=== PATIENT | female | born 1990 | race Caucasian/White ===

== ENCOUNTER → 2017-06-19 | Outpatient (CLI) | payer OTHER ==
[~2017-06-19] MED LIST: ACHD5005 PO; CALC500T55 PO; FAMO20TA25 PO; FERR-57 PO; FRS325T PO; IBP600T1 PO; LORA10CA PO; PREN1TAB71 PO
== END ==
LOC: RAD 10:49
PROVIDERS: ATTEND Family Medicine
DX: Z34.80 Encounter for supervision of other normal pregnancy, unspecified trimester (principal)

== ENCOUNTER → 2017-09-06 | Outpatient (CLI) | payer OTHER ==
--- NOTE | 2017-09-06 14:55 | Diagnostic Imaging Report ---
INDICATION: survey. TECHNIQUE: Multiple real-time grayscale images were obtained over the gravid uterus. COMPARISON: 06/26/2017. FINDINGS: There is a single live fetus in a transverse presentation with head to the maternal left. The placenta is anterior. The amniotic fluid volume is normal. heart rate was recorded at 163 beats per minute. survey demonstrates kidneys, bladder, and stomach to be unremarkable. Intracranial structures are unremarkable. There is a four-chamber heart view. There is a three-vessel cord with normal cord insertion. spine, particularly the lumbar spine, is somewhat limited and not well seen. Biometrical measurements are as follows: Biparietal 5.3 cm, age 22 weeks 2 days. Head circumference 20.0 cm, age 22 weeks 2 days. Abdominal circumference 17.5 cm, age 22 weeks 3 days. Femur length 3.9 cm, age 22 weeks 3 days. Sonographic estimate age: 22 weeks 3 days. Sonographic estimated date of delivery: 01/07/18. Estimated Weight: 496 gm (+/- 72 gm). LMP percentile: 69%. heart rate: 163 beats per minute. number: 1 of 1. IMPRESSION: Single live IUP of approximately 22 weeks 3 days gestational age. The estimated date of confinement sonographically is 01/07/2018. The survey is unremarkable, although the lumbar spine was not well seen on today's study. Dictated by: Dictated on workstation # [id number]
== END ==
LOC: RAD 14:03
PROVIDERS: ATTEND Family Medicine
DX: Z36.89 Encounter for other specified antenatal screening (principal); Z3A.22 22 weeks gestation of pregnancy
CPT/HCPCS: 76805

== ENCOUNTER → 2017-10-18 | Outpatient (CLI) | payer OTHER ==
--- NOTE | 2017-10-18 15:55 | Diagnostic Imaging Report ---
INDICATION: Follow-up spine. TECHNIQUE: Multiple real-time grayscale images were obtained over the gravid uterus. COMPARISON: 09/06/2017. FINDINGS: There is a single live fetus in a cephalic presentation. The placenta is anterior. The amniotic fluid volume is normal. heart rate is recorded at 152 beats per minute. spine is visualized and unremarkable on today's exam. IMPRESSION: Follow-up OB ultrasound demonstrating the spine to be unremarkable. No complicating features are detected. Dictated on workstation # [id number]
== END ==
LOC: RAD 13:59
PROVIDERS: ATTEND Family Medicine
DX: Z04.8 Encounter for examination and observation for other specified reasons (principal); Z3A.27 27 weeks gestation of pregnancy
CPT/HCPCS: 76816

== ENCOUNTER → 2017-12-27 | Outpatient (CLI) | payer OTHER ==
--- NOTE | 2017-12-27 16:10 | Diagnostic Imaging Report ---
INDICATION: Malpresentation. TECHNIQUE: Multiple real-time grayscale images were obtained over the gravid uterus. COMPARISON: None. FINDINGS: Al gestation is now in cephalic position. The placenta is anterior with no abruption or previa. Biometrical measurements are congruent and correlate with an age 37 weeks 6 days, reflective of normal growth from prior. Sonographic date of confinement is 01/11/2018. No abnormality at the anatomical survey. Amniotic fluid volume is within normal limits. Largest vertical pocket of 4.2 cm. IMPRESSION: Cephalic-positioning al viable IUP with no pathological finding, showing normal growth from prior. Biometrical measurements are as follows: Biparietal 9.5 cm, age 39 weeks 0 days. Head circumference 33.3 cm, age 38 weeks 1 days. Abdominal circumference 33.0 cm, age 37 weeks 0 days. Femur length 7.2 cm, age 37 weeks 0 days. Sonographic estimate age: 37 weeks 6 days. Sonographic estimated date of delivery: 01/11/18. Estimated Weight: 3165 gm (+/- 462 gm). LMP percentile: 46%. heart rate: 140 beats per minute. number: 1 of 1. Dictated by: Dictated on workstation # [id number]
== END ==
LOC: RAD 13:54
PROVIDERS: ATTEND Family Medicine
DX: O32.9XX0 Maternal care for malpresentation of fetus, unspecified, not applicable or unspecified (principal); Z3A.37 37 weeks gestation of pregnancy
CPT/HCPCS: 76816

== ENCOUNTER 2017-12-29 17:48 | Inpatient (IN) | payer OTHER ==
[2017-12-29] VITALS (11 sets, daily range): BP systolic 99–148; BP diastolic 52–115
[~2017-12-29] VITALS: Ht 152.4 cm; Wt 119.7 kg
[2017-12-29] MEDS ORDERED: OXYTOCIN/NORMAL SALINE 500 ML IV ONE (17:57)
[2017-12-29] MEDS ORDERED: LIDOCAINE/EPI 2% 1:200,00 (XYLOCAINE) 10 ML VIAL ONE (18:11)
[2017-12-29] MEDS ORDERED: D5 LR IV SOLUTION 1,000 ML IV SCH (18:21)
[2017-12-29] MEDS ORDERED: LIDOCAINE/EPI 1%-1:100,000 (XYLOCAINE) 20ML INJ ONE (18:30)
--- NOTE | 2017-12-29 18:37 | History & Physical-OB ---
OB - Chief Complaint & HPI Date/Time Date of Admission: Date of Admission: Dec 29, 2017 at 18:21 Time Seen by Provider: 17:00 Chief Complaint/History OB-Reason for Admission/Chief: Onset of Labor Hx : 2 Hx Para: 1 Expected Date of Delivery: Jan 17, 2018 Gestational Age in Weeks: 37 Gestational Age in Days: 2 Admission Nurse Assessment Rev: Yes Allergies and Home Medications Allergies Coded Allergies: No Known Drug Allergies (Unverified , 02/10/12) Home Medications Famotidine 20 Mg Tablet, 20 MG PO DAILY, (Reported) Ferrous Sulfate 325 Mg Tab, 325 MG PO TIDWM Prescribed by: LAXMI LOZANO on 02/06/15 1040 Hydrocodone Bit/Acetaminophen 1 Tab Tab, 1 TAB PO Q4H PRN for PAIN Prescribed by: LAXMI LOZANO on 02/06/15 1040 Ibuprofen 600 Mg Tab, 600 MG PO Q6H PRN for PAIN Prescribed by: LAXMI LOZANO on 02/06/15 1040 Loratadine 10 Mg Capsule, 10 MG PO DAILY, (Reported) Vit/Fe Fumarate/Fa 1 Each Tablet, 1 EACH PO DAILY, (Reported) Patient Home Medication List Home Medication List Reviewed: Yes OB - History Hx of Present Care: Yes Ultrasounds: Normal mid trimester US Obstetrical Complications: None Medical Complications: None Delivery History Hx Blood Disorders: No Adverse Rxn to Tranfusion: No Patient Past Medical History Seasonal allergies Immunizations Tetanus Booster (TDap): Less than 5yrs OB - Admission Exam Physical Exam HEENT: Moist Membranes Lungs: Clear Abdomen: Gravid Cervical Dilatation: 10cm (on admission) Membranes: Intact Amniotic Fluid: Clear (after rupture) Accelerations: Accelerations Present Short Term Variability: Present Contractions on Admission: < 5 Minutes Apart Intensity: Moderate OB - Assessment/Plan/Diagnosis Assessment Assessment: active labor Admission Dx 1. Intrauterine at term 37 weeks 2 days in labor Admission Status: Inpatient Order (span 2 midnights) Reason for Inpatient Admission: Labor management Plan Plan: Other (Eminent delivery) TIMOTHY MENDOZA MD Dec 29, 2017 18:37
[2017-12-29] MEDS ORDERED: OXYTOCIN/NORMAL SALINE 500 ML IV SCH (18:39)
--- NOTE | 2017-12-29 18:39 | OB Labor & Delivery Record ---
L&D History Date of Service Date of Service: Dec 29, 2017 History Expected Date of Delivery: Jan 17, 2018 Gestational Age in Weeks: 37 Hx : 2 Hx Para: 1 Complications Events: Routine care Operative Indications (Cesarea: N/A-Vaginal Delivery Intrapartal Events: None L&D Stage1 Stage One Onset of Labor - Date: Dec 29, 2017 Onset of Labor - Time: 02:00 Monitors and Tracing Monitor Mode: External Monitor Accelerations: Uniform Monitor Decelerations: Variable Station: -2 Detention Variability: Average (6-10) Short Term Variability: Present Presentation: Vertex Signs of Distress by FHT Signs of Distress no Rupture of Membranes Spontaneous Ruture of Membrane: No Amniotic Membrane Rupture Time: 17:00 Amniotic Membrane Fluid Desc.: Clear Induction/Anesthesia Medications None L&D Stage2 Stage Two Stage II Date: Dec 29, 2017 Stage II Time: 17:05 Monitors and Tracing Monitor Mode: External Monitor Accelerations: Uniform Monitor Decelerations: Variable Central Supply Technician Variability: Average (6-10) Short Term Variability: Present Position: Left Occiput Anterior Presentation: Vertex Signs of Distress by FHT Signs of Distress No Cord Descript/Complications Cord Vessel Description: 3 Vessels Delivery Type Infant Delivery Method: Spontaneous Vaginal Anterior Shoulder: Left Episiotomy/Perineal Laceration Laceraction(s)/Extensions: Yes Episiotomy Description: Perineal Extension/lac, 1st degree Sutures Used: Vicryl Condition of Infant Delivery 1 minute Comment: 8 5 minute Comment: 8 Condition of Infant Condition of Infant: Living Exam: No Observed Abnormalities Resuscitation Resuscitation: N/A - Spontaneous Resp L&D Stage3 Stage Three Stage III Date: Dec 29, 2017 Stage III Time: 17:09 Pictocin Pitocin ml/hr: 125 Placenta Delivery Placenta Delivery: Spontaneous Delivery Summary Summary Estimated blood loss (mL): 250 Condition of Delivery Examined: Cervix Examined Post Hemorrhage: No Intervention Required None TIMOTHY MENDOZA MD Dec 29, 2017 18:39
[2017-12-29] MEDS ORDERED: TETANUS,DIPTH,PERTUSS P/F (BOOSTRIX) 0.5 ML VIAL IM ONE (18:45)
[2017-12-29] MEDS ORDERED: MEASLES,MUMPS,RUBELLA 1 EA INJ SQ ONE (18:45)
[2017-12-29] MEDS ORDERED: HYDROcodone/APAP 5 MG/325 MG (LORTAB) TAB PO PRN (18:45)
[2017-12-29 18:54] LABS: BASOPHILS % (AUTO) 0 % (0-10); EOSINOPHILS % (AUTO) 0 % (0-10); HEMATOCRIT 33 % (35-52); HEMOGLOBIN 10.9 G/DL (11.5-16.0); LYMPHOCYTES # (AUTO) 0.5 X 10^3 (1.0-4.0); LYMPHOCYTES % (AUTO) 3 % (12-44); MEAN CORPUSCULAR HEMOGLOBIN 31 PG (25-34); MEAN CORPUSCULAR HGB CONC 34 G/DL (32-36); MEAN CORPUSCULAR VOLUME 91 FL (80-99); MONOCYTES # (AUTO) 0.3 X 10^3 (0.0-1.0); MONOCYTES % (AUTO) 3 % (0-12); NEUTROPHILS # (AUTO) 12.9 X 10^3 (1.8-7.8); NEUTROPHILS % (AUTO) 94 % (42-75); PLATELET COUNT 191 10^3/uL (130-400); RED BLOOD COUNT 3.57 10^6/uL (4.35-5.85); WHITE BLOOD COUNT 13.7 10^3/uL (4.3-11.0)
[2017-12-29 19:13] LABS: BAND NEUTROPHILS 12 %; LYMPHOCYTES % (MANUAL) 4 %; MONOCYTES % (MANUAL) 2 %; NEUTROPHILS % (MANUAL) 82 %; RBC MORPH NORMAL
[2017-12-29] MEDS ORDERED: WITCH HAZEL(TUCKS) 40 EA JAR ONE (19:23)
[2017-12-29] MEDS ORDERED: IBUPROFEN 600 MG (MOTRIN) TAB PO ONE (19:23)
[2017-12-29] MEDS ORDERED: BENZOCAINE/MENTHOL (DERMOPLAST) 56 ML CAN TP ONE (19:23)
[2017-12-29] MEDS ORDERED: DOCUSATE SODIUM 100 MG (COLACE) CAP PO ONE (19:23)
[2017-12-29] MEDS: WITCH HAZEL(TUCKS) 40 EA JAR TOP PRN (20:35)
[2017-12-29] MEDS: IBUPROFEN 600 MG (MOTRIN) TAB PO SCH (20:35)
[2017-12-29] MEDS: BENZOCAINE/MENTHOL (DERMOPLAST) 56 ML CAN TP PRN (20:35)
[2017-12-29] MEDS ORDERED: CATHETER FLUSH 10 ML SYR IV SCH ×2 (22:00)
[2017-12-29] MEDS ORDERED: ACETAMINOPHEN 325 MG TABLET/CAPLET (TYLENOL) ONE (23:31)
[2017-12-30] VITALS: BP 107/67
[2017-12-30] MEDS ORDERED: ACETAMINOPHEN 325 MG TABLET/CAPLET (TYLENOL) PO PRN (00:30)
[2017-12-30 03:20] VITALS: BP 99/62
[2017-12-30] MEDS: IBUPROFEN 600 MG (MOTRIN) TAB PO SCH ×4 (03:20→21:09)
[2017-12-30 05:40] LABS: BASOPHILS % (AUTO) 0 % (0-10); EOSINOPHILS # (AUTO) 0.1 10^3/uL (0.0-0.3); EOSINOPHILS % (AUTO) 0 % (0-10); HEMATOCRIT 31 % (35-52); HEMOGLOBIN 10.2 G/DL (11.5-16.0); LYMPHOCYTES # (AUTO) 2.3 X 10^3 (1.0-4.0); LYMPHOCYTES % (AUTO) 18 % (12-44); MEAN CORPUSCULAR HEMOGLOBIN 30 PG (25-34); MEAN CORPUSCULAR HGB CONC 33 G/DL (32-36); MEAN CORPUSCULAR VOLUME 91 FL (80-99); MEAN PLATELET VOLUME 8.8 FL (7.4-10.4); MONOCYTES # (AUTO) 1.2 X 10^3 (0.0-1.0); MONOCYTES % (AUTO) 10 % (0-12); NEUTROPHILS # (AUTO) 9.1 X 10^3 (1.8-7.8); NEUTROPHILS % (AUTO) 72 % (42-75); PLATELET COUNT 198 10^3/uL (130-400); RED BLOOD COUNT 3.38 10^6/uL (4.35-5.85); RED CELL DISTRIBUTION WIDTH 15.3 % (10.0-14.5); WHITE BLOOD COUNT 12.6 10^3/uL (4.3-11.0)
--- NOTE | 2017-12-30 07:54 | Progress Note (SOAP) ---
Subjective Subjective/Events-last exam No complaints. Ambulating. No leg pains. No SOB. Review of Systems Date Seen by Provider: Dec 30, 2017 Time Seen by Provider: 07:40 Objective Exam Last Set of Vital Signs Vital Signs Date Time Temp Pulse Resp B/P (MAP) Pulse Ox O2 Delivery O2 Flow Rate FiO2 12/30/17 03:20 98.8 94 18 99/62 (74) 98 Room Air Capillary Refill : I&O Intake and Output 12/30/17 00:00 Daily Weight Change No General: No Acute Distress Abdomen: Soft (with uterus firm) Results/Procedures Lab Laboratory Tests 12/29/17 18:43: White Blood Count 13.7H, Red Blood Count 3.57L, Hemoglobin 10.9L, Hematocrit 33L , Mean Corpuscular Volume 91, Mean Corpuscular Hemoglobin 31, Mean Corpuscular Hemoglobin Concent 34, Red Cell Distribution Width 15.0H, Platelet Count 191, Mean Platelet Volume 9.0, Neutrophils (%) (Auto) 94H, Lymphocytes (%) (Auto) 3L , Monocytes (%) (Auto) 3, Eosinophils (%) (Auto) 0, Basophils (%) (Auto) 0, Neutrophils # (Auto) 12.9H, Lymphocytes # (Auto) 0.5L, Monocytes # (Auto) 0.3, Eosinophils # (Auto) 0.0, Basophils # (Auto) 0.0, Neutrophils % (Manual) 82, Lymphocytes % (Manual) 4, Monocytes % (Manual) 2, Band Neutrophils 12, Blood Morphology Comment NORMAL 12/30/17 05:25: White Blood Count 12.6H, Red Blood Count 3.38L, Hemoglobin 10.2L, Hematocrit 31L , Mean Corpuscular Volume 91, Mean Corpuscular Hemoglobin 30, Mean Corpuscular Hemoglobin Concent 33, Red Cell Distribution Width 15.3H, Platelet Count 198, Mean Platelet Volume 8.8, Neutrophils (%) (Auto) 72, Lymphocytes (%) (Auto) 18, Monocytes (%) (Auto) 10, Eosinophils (%) (Auto) 0, Basophils (%) (Auto) 0, Neutrophils # (Auto) 9.1H, Lymphocytes # (Auto) 2.3, Monocytes # (Auto) 1.2H, Eosinophils # (Auto) 0.1, Basophils # (Auto) 0.0 Assessment/Plan Assessment/Plan Assessment & Plan 1. IUP at term 37weeks. 2. S/P day 1 -home in the am of 12/31 Clinical Quality Measures DVT/VTE Risk/Contraindication: Risk Factor Score Per Nursin RFS Level Per Nursing on Admit: 2=Moderate TIMOTHY MENDOZA MD Dec 30, 2017 07:54
[2017-12-30 08:15] VITALS: BP 105/61
[2017-12-30] MEDS: PRENATAL VITAMIN 1 EA TAB PO SCH (08:31)
[2017-12-30] MEDS ORDERED: MEASLES,MUMPS,RUBELLA 1 EA INJ ONE (08:41)
[2017-12-30 12:00] VITALS: BP 104/73
[2017-12-30 16:30] VITALS: BP 109/65
[2017-12-30 21:05] VITALS: BP 100/64
[2017-12-30] MEDS ORDERED: DOCUSATE SODIUM 100 MG (COLACE) CAP PO ONE (21:52)
[2017-12-30] MEDS: DOCUSATE SODIUM 100 MG (COLACE) CAP PO SCH (22:42)
[2017-12-31 03:14] VITALS: BP 102/62
[2017-12-31] MEDS: IBUPROFEN 600 MG (MOTRIN) TAB PO SCH ×2 (03:14→08:30)
[2017-12-31] MEDS: WITCH HAZEL(TUCKS) 40 EA JAR TOP PRN ×2 (07:21→14:02)
--- NOTE | 2017-12-31 08:04 | Discharge Summary ---
Diagnosis/Chief Complaint Date of Admission Dec 29, 2017 at 18:21 Date of Discharge December 31, 2017 Admission Diagnosis Admission Diagnosis 1. IUP at 37 weeks Discharge Diagnosis 1. IUP at 37 weeks Chief Complaint/HPI Chief Complaint/HPI 27 yo G2 now T2 who initially presented to labor and delivery on December 29 having had uterine contractions much all day long. She does live in [place] and apparently after dominick mostly they decided to present to Hospital for evaluation. Upon arrival she was noted to be complete cervical dilation. Her due date is January 17, 2018. She does not admit to any ruptured membranes. Discharge Summary-OBS Procedures 1. 2. Repair of 1st degree perineal laceration Discharge Physical Examination Allergies: Coded Allergies: No Known Drug Allergies (Unverified , 02/10/12) Vitals & I&Os Vital Sign - Last 12Hours Date Time Temp Pulse Resp B/P (MAP) Pulse Ox O2 Delivery O2 Flow Rate FiO2 12/31/17 03:14 97.9 84 18 102/62 (75) 97 Room Air General Appearance: No Acute Distress Respiratory: Clear to Auscultation Cardiovascular: Regular Rate Abdominal: Soft (with uterus firm) Hospital Course Upon presentation December 29 she was noted to be complete. She was at 37 weeks 2 days gestation. Her GBS status was unknown to me at that time the patient was complete and head basically on the perineum. She underwent AROM with subsequent delivery vaginally. She did not have an episiotomy and a first- degree perineal laceration was noted. female received Apgars of 8 at 1 minute and 9 at 5 minutes. The perineal laceration was repaired without difficulty with 3-0 Vicryl. Estimated blood loss 200 mL. Following delivery patient underwent routine care orders. She was noted to have no complications during the remainder of her hospital stay. She was ambulatory and did not complain of any shortness of breath or leg pain. She tolerated regular diet. Her hemoglobin day after delivery was noted be 10.2. Her uterus was firm the day after delivery. All questions were answered and she was felt ready for dismissal Discharge Instructions to patient/family Please see electronic discharge instructions given to patient. Discharge Medications Reviewed and agree with Discharge Medication list on patient's Discharge Instruction sheet Clinical Quality Measures DVT/VTE Risk/Contraindication: Risk Factor Score Per Nursin RFS Level Per Nursing on Admit: 2=Moderate TIMOTHY MENDOZA MD Dec 31, 2017 08:04
--- NOTE | 2017-12-31 08:06 | Discharge Inst-Women's Service ---
Discharge Inst-Women's Serv Depart Medication/Instructions New, Converted or Re-Newed RX: Other Consults/Follow Up Additional Follow Up: Yes (with Dr Caballero in 6 weeks) Activity Activity: Activity as Tolerated Driving Instructions: No Driving for 1 Week Nothing Inside Vagina: No [place] (for 6 weeks.) Diet Discharge Diet: Regular Diet Return to The Hospital For: as below Symptoms to Report to : Swelling Increased, Bleeding Excessive, Fever Over 101 Degrees F, Vaginal Bleeding Increase, Vaginal Discharge Foul For Any Problems or Questions: Contact Your Physician TIMOTHY MENDOZA MD Dec 31, 2017 08:06
[2017-12-31 08:30] VITALS: BP 93/61
[2017-12-31] MEDS: DOCUSATE SODIUM 100 MG (COLACE) CAP PO SCH (08:30)
[2017-12-31] MEDS: PRENATAL VITAMIN 1 EA TAB PO SCH (08:30)
[2017-12-31] MEDS: BENZOCAINE/MENTHOL (DERMOPLAST) 56 ML CAN TP PRN (14:02)
== END 2017-12-31 14:25 | disposition home or self-care (01) | DRG 775 ==
LOC: WSo 17:48 → LDRP 18:21 → 3RD 12-30 10:18 → LDRP 12-30 10:18
PROVIDERS: ADMIT Family Medicine; ATTEND Family Medicine
PROC: 10E0XZZ Delivery of Products of Conception, External Approach (ICD-10-PCS; principal; 2017-12-29)
PROC: 0HQ9XZZ Repair Perineum Skin, External Approach (ICD-10-PCS; 2017-12-29)
DX: O70.0 First degree perineal laceration during delivery (principal); Z37.0 Single live birth; Z3A.37 37 weeks gestation of pregnancy; Z23 Encounter for immunization
CPT/HCPCS: 36415; 85007; 85025; 85027; 86850; 86900; 86901; 90707; 99212

== ENCOUNTER 2019-11-03 04:34 | Inpatient (IN) | payer OTHER ==
[2019-11-03] VITALS (32 sets, daily range): BP systolic 92–127; BP diastolic 49–79
[~2019-11-03] VITALS: Ht 160 cm; Wt 95.8 kg
--- OUTSIDE RECORDS SUMMARY | 2019-11-03 06:01 | XMS REPORT ---
Author Author Ciara Posey Organization [facility] Address [address] [place] [address] Care Team Providers Care Adult And Pediatric Neurologist Name Role Phone PATRICIA Posey Unavailable PROBLEMS Type Condition ICD9-CM Code RHB94-UN Code Onset Dates Condition S tatus SNOMED Code Problem Migraine with aura and without status migrainosu s, not intractable G43.109 Active 6003702 Problem Encounter for genetic screening for Down Syndrome Z13.79 Active [id number] ALLERGIES No Information ENCOUNTERS Encounter Location Date Diagnosis [place] [address] [place] [address] Apr, [place] [address] [place] [address] 17 Mar, [address] [address] Mar, care, subsequent in f irst trimester Z34.81 [place] [address] [address] [place] [id number] [address] [place] [address] 09 Mar, 2019 care, subsequent pr egnancy in first trimester Z34.81 and 9 weeks gestation of Z3A.09 [place] [address] [address] [place] [id number] [address] [place] [address] Feb, [place] [address] [address] [place] [id number] [address] [place] [address] Feb, [place] [address] [place] [address] Feb, [place] [address] [address] [place] [id number] [address] [place] [address] Jan, Encounter for vis it Z39.2 and control counseling Z30.09 [place] [address] [address] [facility] [place] [id number] [address] [place] [address] 08 Dec, 2017 care, subsequent pr egnancy in third trimester Z34.83 and 37 weeks gestation of Z3A.37 [place] [address] [address] [facility] [place] [id number] [address] [place] [address] Dec, care, subsequent pr egnancy in third trimester Z34.83 ; 36 weeks gestation of Z3A.36 and Antepartum malpresentation of fetus P01.7 [place] [address] [address] [place] [id number] [address] [place] [address] November, care, subsequent pr egnancy in third trimester Z34.83 ; 33 weeks gestation of Z3A.33 and Decreased movements in third trimester, single or unspecified fetus O36.8130 [place] [address] [place] [id number] [place] [address] Oct, care, subsequent pr egnancy in third trimester Z34.83 ; Encounter for immunization Z23 and 31 weeks gestation of Z3A.31 [place] [address] [place] [id number] [place] [address] Oct, Third trimester Z3 4.93 and 28 weeks gestation of Z3A.28 [place] [address] [address] [place] [id number] [address] [place] [address] Sep, care, subsequent pr egnancy in second trimester Z34.82 ; Diabetes mellitus screening Z13.1 ; 25 weeks gestation of Z3A.25 and Evaluate anatomy not seen on prior sonogram Z04.8 [place] [address] [address] [place] [id number] [place] [address] 09 Aug, 2017 care, subsequent pr egnancy in second trimester Z34.82 ; Second trimester Z34.92 and 20 weeks gestation of Z3A.20 [place] [address] [address] [place] [id number] [address] [place] [address] Jul, [place] [address] [address] [place] [id number] [address] [place] [address] Jul, Normal in multigra michael Z34.80 ; care, subsequent in second trimester Z34.82 and 15 weeks gestation of Z3A.15 [place] [address] [address] [place] [id number] [address] [place] [address] May, Normal in multigra michael Z34.80 and 9 weeks gestation of Z3A.09 [place] [address] [address] Apr, [place] [address] [address] Apr, Encounter for test Z32.00 [place] [address] [address] Mar, Hirsutism L68.0 [place] [address] [address] Feb, Well woman exam (no gynecolo gical exam) Z00.00 ; control counseling Z30.9 ; Migraine with aura and without status migrainosus, not intractable G43.109 and Hirsutism L68.0 [place] [address] [place] [id number] [address] [place] [address] 02 Mar, 2015 Routine follow-up V24.2 ; anemia 648.24 and Contraception management V25.9 [place] [address] [place] [address] Jan, Supervision of normal first V22.0 [facility] [id number] [place] [id number] 10 Jan, 2015 Dental examination V72.2 [place] [address] [address] [place] [id number] [address] [place] [address] 08 Jan, 2015 Supervision of normal first V22.0 [place] [address] [place] [address] Jan, Supervision of normal first V22.0 [facility] [address] [facility] [place] [id number] [address] [place] [address] Dec, [facility] [address] [facility] [place] [id number] [address] [place] [address] Dec, Supervision of normal first V22.0 [facility] [address] [facility] [id number] [address] [place] [address] Dec, [facility] [address] [facility] [place] [id number] [address] [place] [address] Dec, Supervision of normal first V22.0 [facility] [address] [facility] [place] [id number] [address] [place] [address] Dec, Supervision of normal first V22.0 [facility] [address] [facility] [place] [id number] [address] [place] [address] Dec, [facility] [address] [facility] [place] [id number] [address] [place] [address] Dec, Supervision of normal first V22.0 [facility] [address] [id number] [address] [place] [id number] November, Dental examination V72.2 [facility] [address] [facility] [place] [id number] [address] [place] [address] November, Rubella non-immune status, a ntepartum 646.83 and Supervision of normal first V22.0 [facility] [address] [facility] [place] [id number] [address] [place] [address] November, [facility] [address] [facility] [place] [id number] [address] [place] [address] November, Supervision of normal first V22.0 ; Screening for diabetes mellitus V77.1 and Screening, iron deficiency anemia V78.0 [facility] [address] [facility] [place] [id number] [address] [place] [address] Oct, [facility] [address] [id number] [address] [place] [address], [place] [address] 13 Oct, 2014 [facility] [address] [id number] [address] [place] [address], [place] [address] 30 Sep, 2014 [facility] [address] [id number] [address] [place] [address], [place] [address] 13 Sep, 2014 [facility] [address] [id number] [address] [place] [address], [place] [address] 13 Sep, 2014 [facility] [address] [id number] [address] [place] [address], [place] [address] Sep, [facility] [address] [id number] [address] [place] [address], [place] [address] Sep, [facility] [address] [id number] [address] [place] [address], [place] [address] Sep, [facility] [address] [id number] [address] [place] [address], [place] [address] 04 Sep, 2014 [facility] [address] [id number] [address] [place] [address], [place] [address] Sep, [facility] [address] [id number] [address] [place] [address], [place] [address] Sep, [facility] [address] [id number] [address] [place] [address], [place] [address] Sep, [facility] [address] [id number] [address] [place] [address], [place] [address] Sep, [facility] [address] [id number] [address] [place] [address], [place] [address] Aug, [facility] [address] [id number] [address] [place] [address], [place] [address] 17 Aug, 2014 [facility] [address] [id number] [address] [place] [address], [place] [address] 15 Aug, 2014 [facility] [address] [id number] [address] [place] [address], [place] [address] 12 Aug, 2014 [facility] [address] [id number] [address] [place] [address], [place] [address] 11 Aug, 2014 [facility] [address] [id number] [address] [place] [address], [place] [address] 11 Aug, 2014 [facility] [address] [id number] [address] [place] [address], [place] [address] 16 Jul, 2014 [facility] [address] [id number] [address] [place] [address], [place] [address] 15 Jul, 2014 [facility] [address] [id number] [address] [place] [address], [place] [address] Jul, [facility] [address] [id number] [address] [place] [address], [place] [address] 12 Jul, 2014 [facility] [address] [id number] [address] [place] [address], [place] [address] 17 Jun, 2014 [facility] [address] [id number] [address] [place] [address], [place] [address] 16 Jun, 2014 [facility] [address] [id number] [address] [place] [address], [place] [address] 15 Jun, 2014 [facility] [address] [id number] [address] [place] [address], [place] [address] 15 Jun, 2014 [facility] [address] [id number] [address] [place] [address], [place] [address] 24 May, 2014 [facility] [address] [id number] [address] [place] [address], [place] [address] 24 May, 2014 [facility] [address] [id number] [address] [place] [address], [place] [address] 24 Dec, 2013 [facility] [address] [id number] [address] [place] [address], [place] [address] 24 Dec, 2013 [facility] [address] [id number] [address] [place] [address], [place] [address] Jun, [facility] [address] [facility] [place] [id number] [address] [place] [address] Jun, IMMUNIZATIONS No Known Immunizations SOCIAL HISTORY Never Assessed REASON FOR VISIT PLAN OF CARE VITAL SIGNS Height 63 in 2014-07-05 Weight 198.1 lbs 2014-07-05 Temperature 97.9 degrees Fahrenheit 2014-07-05 Heart Rate 82 bpm 2014-07-05 Respiratory Rate 18 2014-07-05 Blood pressure systolic 118 mmHg 2014-07-05 Blood pressure diastolic 72 mmHg 2014-07-05 MEDICATIONS Unknown Medications RESULTS No Results PROCEDURES Procedure Date Ordered Result Body Site HEPATITIS B SURFACE AG, EIA Jul 05, 2014 RUBELLA ANTIBODY Jul 05, 2014 URINE CULTURE/COLONY COUNT Jul 05, 2014 HIV-1/HIV-2, SINGLE ASSAY Jul 05, 2014 BLOOD SEROLOGY, QUALITATIVE Jul 05, 2014 ASSAY THYROID STIM HORMONE Jul 05, 2014 OB US < 14 WKS, SINGLE FETUS Jul 05, 2014 BLOOD TYPING, ABO Jul 05, 2014 RBC ANTIBODY SCREEN Jul 05, 2014 COMPLETE CBC W/AUTO DIFF WBC Jul 05, 2014 URINALYSIS, AUTO, W/O SCOPE Jul 05, 2014 VENIPUNCT, ROUTINE* Jul 05, 2014 INSTRUCTIONS MEDICATIONS ADMINISTERED No Known Medications MEDICAL (GENERAL) HISTORY Type Description Date Medical History Migraines with aura Medical History Anemia Surgical History oral surgery to remove prima ry teeth and excise permanent teeth from roof of mouth Hospitalization History see surgeries Hospitalization History L&D 01/2015 Hospitalization History L&D 12/2017
--- OUTSIDE RECORDS SUMMARY | 2019-11-03 06:01 | XMS REPORT ---
Author Author Ciara LOZANO Organization [facility] Address [address] [place] [address] Care Team Providers Care Unit Nurse Name Role Phone BLAKE LAXMI Unavailable PROBLEMS Type Condition ICD9-CM Code [id number] Code Onset Dates Condition S tatus SNOMED Code Problem Migraine with aura and without status migrainosu s, not intractable G43.109 Active [id number] ALLERGIES No Information ENCOUNTERS Encounter Location Date Diagnosis [place] [id number] [place] [address] Feb, [address] [address] Jan, Encounter for vis it Z39.2 and control counseling Z30.09 [place] [address] [address] [place] [id number] [address] [place] [address] Dec, care, subsequent pr egnancy in third trimester Z34.83 and 37 weeks gestation of Z3A.37 [place] [address] [address] [place] [id number] [address] [place] [address] Dec, care, subsequent pr egnancy in third trimester Z34.83 ; 36 weeks gestation of Z3A.36 and Antepartum malpresentation of fetus P01.7 [place] [address] [address] [place] [id number] [address] [place] [address] November, care, subsequent pr egnancy in third trimester Z34.83 ; 33 weeks gestation of Z3A.33 and Decreased movements in third trimester, single or unspecified fetus O36.8130 [place] [address] [address] [place] [id number] [address] [place] [address] Oct, care, subsequent pr egnancy in third trimester Z34.83 ; Encounter for immunization Z23 and 31 weeks gestation of Z3A.31 [place] [address] [facility] [id number] [address] [place] [address] Oct, Third trimester Z3 4.93 and 28 weeks gestation of Z3A.28 [place] [address] [facility] [id number] [address] [place] [address] Sep, care, subsequent pr egnancy in second trimester Z34.82 ; Diabetes mellitus screening Z13.1 ; 25 weeks gestation of Z3A.25 and Evaluate anatomy not seen on prior sonogram Z04.8 [place] [address] [facility] [id number] [address] [place] [address] 09 Aug, 2017 care, subsequent pr egnancy in second trimester Z34.82 ; Second trimester Z34.92 and 20 weeks gestation of Z3A.20 [place] [address] [facility] [id number] [address] [place] [address] Jul, [place] [address] [facility] [id number] [address] [place] [address] Jul, Normal in multigra michael Z34.80 ; care, subsequent in second trimester Z34.82 and 15 weeks gestation of Z3A.15 [place] [address] [facility] [id number] [address] [place] [address] May, Normal in multigra michael Z34.80 and 9 weeks gestation of Z3A.09 [place] [address] [id number] [address] [place] [address] Apr, [place] [address] [facility] [id number] [address] [place] [address] Apr, Encounter for test Z32.00 [place] [address] [facility] [id number] [address] [place] [address] 09 Mar, 2016 Hirsutism L68.0 [place] [address] [facility] [id number] [address] [place] [address] Feb, Well woman exam (no gynecolo gical exam) Z00.00 ; control counseling Z30.9 ; Migraine with aura and without status migrainosus, not intractable G43.109 and Hirsutism L68.0 [facility] [address] [facility] [id number] [address] [place] [address] Mar, Routine follow-up V24.2 ; anemia 648.24 and Contraception management V25.9 [facility] [address] [facility] [id number] [address] [place] [address] Jan, Supervision of normal first V22.0 [facility] [address] [facility] [id number] [address] [place] [id number] Jan, Dental examination V72.2 [facility] [address] [facility] [id number] [address] [place] [address] Jan, Supervision of normal first V22.0 [facility] [address] [facility] [id number] [address] [place] [address] Jan, Supervision of normal first V22.0 [facility] [address] [facility] [id number] [address] [place] [address] Dec, [facility] [address] [facility] [id number] [address] [place] [address] Dec, Supervision of normal first V22.0 [facility] [address] [facility] [id number] [address] [place] [address] Dec, [facility] [address] [facility] [id number] [address] [place] [address] Dec, Supervision of normal first V22.0 [facility] [address] [facility] [id number] [address] [place] [address] Dec, Supervision of normal first V22.0 [facility] [address] [facility] [id number] [address] [place] [address] Dec, [facility] [address] [id number] [address] [place] [address] Dec, Supervision of normal first V22.0 [facility] [address] [id number] [address] [place] [id number] November, Dental examination V72.2 [facility] [address] [id number] [address] [place] [address] November, Rubella non-immune status, a ntepartum 646.83 and Supervision of normal first V22.0 [facility] [address] [id number] [address] [place] [address] November, [facility] [address] [id number] [address] [place] [address] November, Supervision of normal first V22.0 ; Screening for diabetes mellitus V77.1 and Screening, iron deficiency anemia V78.0 [facility] [address] [id number] [address] [place] [address] Oct, [facility] [address] [id number] [address] [place] [address] Oct, [facility] [address] [id number] [address] [place] [address] Sep, [facility] [address] [id number] [address] [place] [address] Sep, [facility] [address] [id number] [address] [place] [address] Sep, [facility] [address] [id number] [address] [place] [address] Sep, [facility] [address] [id number] [address] [place] [address] Sep, [facility] [address] [id number] [address] [place] [address] Sep, [facility] [address] [id number] [address] [place] [address], [place] [address] 04 Sep, 2014 [facility] [address] [id number] [address] [place] [address], [place] [address] Sep, [facility] [address] [id number] [address] [place] [address], [place] [address] Sep, [facility] [address] [id number] [address] [place] [address], [place] [address] Sep, [facility] [address] [id number] [address] [place] [address], [place] [address] Sep, [facility] [address] [id number] [address] [place] [address], [place] [address] Aug, [facility] [address] [id number] [address] [place] [address], [place] [address] Aug, [facility] [address] [id number] [address] [place] [address], [place] [address] 15 Aug, 2014 [facility] [address] [id number] [address] [place] [address], [place] [address] Aug, [facility] [address] [id number] [address] [place] [address], [place] [address] Aug, [facility] [address] [id number] [address] [place] [address], [place] [address] Aug, [facility] [address] [id number] [address] [place] [address], [place] [address] Jul, [facility] [address] [id number] [address] [place] [address], [place] [address] Jul, [facility] [address] [id number] [address] [place] [address], [place] [address] Jul, [facility] [address] [id number] [address] [place] [address], [place] [address] Jul, [facility] [address] [id number] [address] [place] [address], [place] [address] Jun, [facility] [address] [id number] [address] [place] [address] Jun, [facility] [address] [id number] [address] [place] [address] Jun, [facility] [address] [id number] [address] [place] [address] Jun, [facility] [address] [id number] [address] [place] [address] May, [facility] [address] [id number] [address] [place] [address] May, [facility] [address] [id number] [address] [place] [address] Dec, [facility] [address] [id number] [address] [place] [address] Dec, [facility] [address] [id number] [address] [place] [phone] Jun, [facility] [address] [id number] [address] [place] [phone] Jun, IMMUNIZATIONS No Known Immunizations SOCIAL HISTORY Never Assessed REASON FOR VISIT PLAN OF CARE VITAL SIGNS MEDICATIONS Unknown Medications RESULTS No Results PROCEDURES No Known procedures INSTRUCTIONS MEDICATIONS ADMINISTERED No Known Medications MEDICAL (GENERAL) HISTORY Type Description Date Medical History Migraines with aura Surgical History oral surgery to remove prima ry teeth and excise permanent teeth from roof of mouth Hospitalization History see surgeries
--- OUTSIDE RECORDS SUMMARY | 2019-11-03 06:01 | XMS REPORT ---
Author Author [employer]. Organization [employer] Address [address] [address] Care Team Providers Care Ballroom Dancer Name Role Phone BLAKE, LAXMI Unavailable Unavailable WHITE, HANANE Unavailable Unavailable ERIC HARDY Unavailable BLAKE, LAXMI Unavailable BLAKE, LAXMI N Unavailable BLAKE, LAXMI Unavailable BLAKE, LAXMI Unavailable BLAKE, LAXMI Unavailable BLAKE, LAXMI Unavailable BLAKE, LAXMI Unavailable BLAKE, LAXMI Unavailable BLAKE, LAXMI Unavailable BLAKE, LAXMI Unavailable BLAKE, LAXMI Unavailable BLAKE, LAXMI Unavailable Migration, Doctor Unavailable Unavailable Migration, Doctor Unavailable Unavailable Migration, Doctor Unavailable Unavailable zzHEIMAN, PATRICIA Unavailable BLAKE, LAXMI Unavailable BLAKE, LAXMI Unavailable BLAKE, LAXMI Unavailable BLAKE, LAXMI Unavailable BLAKE, LAXMI Unavailable BLAKE, LAXMI Unavailable zzHEIMAN, PATRICIA Unavailable PCP, NONE Unavailable Unavailable Unavailable Unavailable zzHEIMAN, PATRICIA Unavailable Allergies Normalized Allergy Reported Date of Reaction(s) Care Provider Facility Allergy Type classification allergen Allergy Onset DA (1 source.) Unclassified No Known Drug 02-10-2012 - no inform ation LAXMI BLAKE Not Available Allergies , (60831) Medications Current Medications Medication Ingredient Drug Dose Dates Status Sig Sig Care Class(es) (Normalized) (Original) Provid er azithromyci Azithromyci Macrolide 500 mg 07-08-20 Active take 2 Azithromycin no n 250 mg n Antimicrobi 13 tablets by 250 mg 2 nam e oral tablet Translation al mouth once Tablet by (no (1 source.) s: [ daily, then Oral route phone) Azithromyci take 1 on day 1 n 250 mg] tablet by then take 1 mouth, then daily for 4 take 1 days Jun, tablet by 2012 Active mouth once daily no Calcium Phosphate 07-05-20 Active no Calcium 500 no information Binder, 14 information + D by oral name (1 source.) Calcium route 15 (no Jun, 2014 phone) Active no iron no Active no Iron 325 (65 no information Translation information information Fe) MG na me (6 s: [ Iron Orally Once (no sources.) 325 (65 Fe) a day 1 phone) MG, Iron tablet 24h 325 (65 Fe) Active MG] predniSONE predniSONE no 10 mg 07-08-20 Active take 1 Predn iSONE no 10 mg oral Translation information 13 tablet by 10 mg 1 name tablet (1 s: [ mouth twice Tablet by (no source.) PredniSONE daily in the Oral route 2 phone) 10 mg] morning times per day for 5 days Take at 8 am and noon. Jun, Active no no Active no no information Vitamin information information Vitamin name (6 27-0.8 MG 27-0.8 MG (no sources.) Translation Active phone) s: [ Vitamin 27-0.8 MG, Vitamin 27-0.8 MG] {28 {28 no 0.35 02-12-20 Active no Ortho no (Norethindr (Norethindr information mg 18 information Will ronor name one 0.35 MG one 0.35 MG 0.35 MG (no Oral Oral Orally Once phone) Tablet) } Tablet) } a day 1 Pack [Ortho Pack [Ortho tablet 24h Micronor 28 Micronor 28 Jan, Day] (1 Day] 28 day(s) source.) Translation Active s: [ Ortho Micronor 0.35 MG] Completed/Discontinued Medications Medication Ingredient Drug Dose Dates Status Sig Sig Care Class(es) (Normalized) (Original) Provid er no Acetaminoph no 02-07-20 Complete take 5 Acetaminophe Bethan information en/Hydrocod information 15 - d tablets by n/H ydrocodon y N (1 source.) one Bitart 01-01-20 mouth every e Bitart Blake (Lortab 5 18 four hours (Lortab 5 (no Mg) 1 Tab as needed Mg) 1 Tab phone) Tab, 1 Tab for pain, Tab, 1 Tab Oral then take 1 Oral Every tablet by 4HRS as mouth as needed for needed for Pain pain 02/06/15 Discontinued no calcium no 02-07-20 Complete no Calcium (no information carbonate information 15 d information Carb alvaro phone) (1 source.) (Calcium 500) 1.25 G Tablet, 1.25 G Oral Daily Discontinued famotidine famotidine Histamine-2 20 mg Complete take 1 Famotidi ne (no 20 mg oral Receptor d tablet by (Heartburn phone) tablet (1 Antagonist mouth once Relief) 20 source.) daily, then Mg Tablet 20 take 1 Mg ORAL tablet by Daily mouth ferrous ferrous no 325 mg 02-07-20 Complete take 1 Ferrous Bethan sulfate 325 sulfate information 15 d tablet by Sulfate y N mg oral mouth three (Feosol Tab) Blake tablet (2 times daily 325 Mg Tab (no sources.) at mealtime 325 Mg ORAL phone) Three Times Daily With Meals 90 Tab 02/06/15 325 mg 02-06-2015 Completed take 1 Ferrous (no tablet Sulfate phone) by 325 Mg mouth Tablet, once 325 Mg daily Oral Daily Disconti nued ibuprofen ibuprofen Nonsteroida 600 mg 02-07-20 Complete take 1 Ibuprofen Bethan 600 mg oral l 15 d tablet by (Motrin y N tablet (1 Anti-inflam mouth every Tablet) 600 Diagonal source.) matory Drug six hours as Mg Tab 600 (no needed for Mg ORAL phone) pain Every 6 Hours as needed for Pain 60 Tab 02/06/15 no no Complete take 1 (no information Vit/Fe information d tablet by Vit/Fe phone) (1 source.) Fumarate/Fa mouth once Fumarate/Fa ( daily ( Vitamin Vitamin Tablet) 1 Tablet) 1 Each Tablet Each Tablet 1 Each ORAL Daily Problems Active Problems Problem Normalized Date of Normalized Normalized Provider Fac ility Classification Problem(s) Problem Problem Problem Sta tus Onset/Resoluti Duration on Other Anemia of Chronic Active no name no informati on complications mother, of ; delivered, puerperium with mention affecting of management of complication mother (3 sources.) Other Anemia of Chronic Active no name no informati on complications mother, of delivered, (3 sources.) with or without mention of antepartum condition Deficiency and Anemia, Episodic Active no name no infor mation other anemia unspecified (3 sources.) Polyhydramnios Delayed Episodic Active no name no infor mation and other delivery after problems of spontaneous or amniotic unspecified cavity (3 rupture of sources.) membranes, delivered, with or without mention of antepartum condition NEGATED First degree Episodic Active no name Not Avail able no perineal (81044) information (5 laceration sources.) during delivery Translations: [ DEL W 2 DEG LACERAT-DEL] Other High vaginal Episodic Active no name no inform ation complications laceration, of ; delivered, puerperium with or affecting without management of mention of mother (3 antepartum sources.) condition Malposition; Maternal care Episodic Active no name no in formation malpresentatio for n (6 sources.) malpresentatio n of fetus, unspecified, not applicable or unspecified Umbilical cord Other and Episodic Active no name no info rmation complication unspecified (3 sources.) cord entanglement, without mention of compression, complicating labor and delivery, delivered, with or without mention of antepartum condition Past or Other Problems Problem Normalized Date of Normalized Normalized Provider Fac ility Classification Problem(s) Problem Problem Problem Sta tus Onset/Resoluti Duration on Unclassified 22 weeks no information no information LAXMI JEFF [facility] (20 [place] [address] [facility] Translations: [place] ([address]) [ 37 WEEKS GESTATION OF , - 9 weeks gestation of Z3A.09, - 20 weeks gestation of Z3A.20, - 25 weeks gestation of Z3A.25, - 28 weeks gestation of Z3A.28, - 31 weeks gestation of Z3A.31, - 33 weeks gestation of Z3A.33, - 36 weeks gestation of Z3A.36, - 37 weeks gestation of Z3A.37, 27 WEEKS GESTATION OF , - 9 weeks gestation of Z3A.09, - 20 weeks gestation of Z3A.20, - 25 weeks gestation of Z3A.25, - 28 weeks gestation of Z3A.28, - 31 weeks gestation of Z3A.31, - 33 weeks gestation of Z3A.33, - 36 weeks gestation of Z3A.36, - 37 weeks gestation of Z3A.37] NEGATED Encounter for no information no information no name no information no other information (7 specified sources.) screening Procedures Procedure Normalized Procedure Procedure Result Performer Facility Date 08-02-2014 Cul bact xcpt urine no information no name (no phon e) [facility] blood/stool aerobic [facility] ([id number]) 12-20-2017 Cul prsmptv pthgnc no information no name (no phone ) [facility] organism scrn w/colony [facility] (09645) 08-02-2014 Cytp c/v auto thin lyr no information no name (no p bill) [facility] prep scr mnl rescr [facility] (06015) DELIVERY OF PRODUCTS no information no name (no phone) Not A vailable (16336) OF CONCEPTION, EXTE 11-29-2017 nonstress test no information no name (no suleman ne) [facility] 11-29-2017 [place] ([id number]) - 11-29-2017 08-02-2014 [place] chlamydia no information no name (no phone) [facility] trachomatis amplified [facility] (44061) 08-02-2014 [place] trichomonas no information no name (no phone) [facility] vaginalis direct probe [facility] ([id number]) 08-02-2014 Obtaining screen pap no information no name (no suleman ne) [facility] smear [facility] (59884) Repair of other no information no name (no phone) no informa tion current obstetric laceration Repair Perineum Skin, no information no name (no phone) Not Available ([id number]) External Approach 12-27-2017 Ultrasound scan of no information LAXMI LOZANO [facility] ([id number]) 02-11-2018 Urine test no information no name (no suleman ne) [facility] visual color cmprsn [facility] (24003) 12-27-2017 Urnls dip stick/tablet no information no name (no p bill) [facility] rgnt non-auto w/o Center [facility] (85109) 12-20-2017 Urnls dip stick/tablet no information no name (no p bill) [facility] rgnt non-auto w/o Center [facility] (92368) 11-29-2017 Urnls dip stick/tablet no information no name (no p bill) [facility] rgnt non-auto w/o Center [facility] ([id number]) 11-15-2017 Urnls dip stick/tablet no information no name (no p bill) [facility] rgnt non-auto w/o [facility] (99025) 10-25-2017 Urnls dip stick/tablet no information no name (no p bill) [facility] rgnt non-auto w/o [facility] (66119) 09-29-2014 Urnls dip stick/tablet no information no name (no p bill) [facility] rgnt non-auto w/o Center [facility] (91905) 08-02-2014 Urnls dip stick/tablet no information no name (no p bill) [facility] rgnt non-auto w/o [facility] (15080) 09-22-2014 Us preg uterus after no information no name (no suleman ne) [facility] 1st trimest / [facility] (38470) Immunizations Normalized Immunization Date Notes Care Provider Facili ty Immunization influenza, seasonal, 04-27-2019 no information no name [facility] injectable [facility] (08625) measles, mumps and 12-30-2017 no information LAXMI LOZANO [address] [facility] rubella virus [place] (61333) vaccine NEGATED: Highlighted 12-30-2017 no information LAXMI LOZANO [phone] [facility] row has not [place] (27055) occurred! tetanus toxoid, reduced diphtheria toxoid, and acellular pertussis vaccine, adsorbed tetanus toxoid, 11-15-2017 - no information LAXMI LOZANO [address] [facility] reduced diphtheria 11-15-2017 [facility] toxoid, and [place] (68666) acellular pertussis vaccine, adsorbed no information 11-15-2017 no information LAXMI LOZANO [address] [facility] (74111) Results Test Name Value Interpretation Reference Range Date Time Fa cility (Normalized) (Normalized) (Medline Reference) ua ob dip (in house) on null Glucose no information (no code) 60 - 125 mg/dL [facility] (71839) Glucose Test no information (no code) [facility] conc Center [facility] (U) [facility] (27131) Urine, protein Trace (no code) [facility] (48950) Urine, protein no information (no code) 0 - 20 mg/dL [facility] (47371) test, urine (in house) on null TEST, no information (no code) [facility] URINE (IN HOUSE) [facility] (01121) TEST, [id number] (no code) [facility] URINE (IN HOUSE) [facility] (24662) TEST, no information (no code) [facility] URINE (IN HOUSE) [facility] (30400) TEST, 07/2019 (no code) [facility] URINE (IN HOUSE) [facility] (32104) No panel information on 2019-10-21 Protein (U) neg~neg (no code) [facility] [Mass/Vol] [facility] (96161) No panel information on 2019-10-07 Protein (U) no information (no code) 0 - 20 mg/dL [facility] [Mass/Vol] [facility] (50376) S. agalactiae SEE NOTE (A) [facility] Healt Org specific cx [facility] (Unsp spec) [facility] (92016) No panel information on 2019-09-30 Protein (U) Neg~Neg (no code) [facility] [Mass/Vol] [facility] (32565) No panel information on 2019-09-16 Protein (U) no information (no code) 0 - 20 mg/dL [facility] [Mass/Vol] [facility] (59054) No panel information on 2019-09-02 Protein (U) no information (no code) 0 - 20 mg/dL [facility] [Mass/Vol] [facility] (64404) No panel information on 2019-08-19 Protein (U) no information (no code) 0 - 20 mg/dL [facility] [Mass/Vol] [facility] (28318) No panel information on 2019-08-07 Basophils (Bld) 0.007 10*3/uL (N) 0 - 0.3 10*3/uL [facility] [#/Vol] [facility] (71005) Basophils/100 0.1 % (N) 0.5 - 1 % [facility] WBC (Bld) [facility] (29936) Eosinophils 0.098 10*3/uL (N) 0.05 - 0.5 [facility] (Bld) [#/Vol] 10*3/uL [facility] (12560) Eosinophils/100 1.4 % (N) 1 - 4 % [facility] WBC (Bld) [facility] (06419) Erythrocyte 13.1 % (N) 11.6 - 14.6 % [facility] ealth distribution [facility] width (RBC) [facility] [Ratio] (47284) Glucose 1 Hr 85 (N) [facility] post meal [facility] [Mass/Vol] [facility] (19083) Hematocrit (Bld) 32.4 % (L) 36.1 - 50.3 % [facility] [Volume [facility] fraction] [facility] (27795) Hemoglobin (Bld) 10.7 g/dL (L) 12.1 - 17.2 g/dL [facility] [Mass/Vol] [facility] (94656) Lymphocytes 0.917 10*3/uL (N) 0.9 - 2.9 [facility] (Bld) [#/Vol] 10*3/uL [facility] (41202) Lymphocytes/100 13.1 % (N) 20 - 40 % [facility] WBC (Bld) [facility] (61951) MCH (RBC) 29.0 pg (N) 27 - 31 pg [facility] [Entitic mass] [facility] (42487) MCHC (RBC) 33.0 g/dL (N) 32 - 36 g/dL [facility] [Mass/Vol] [facility] (80128) MCV (RBC) 87.8 fL (N) 80 - 100 fL [facility] lt [Entitic vol] [facility] (49484) Monocytes (Bld) 0.406 10*3/uL (N) 0.3 - 0.9 [facility] [#/Vol] 10*3/uL [facility] (94955) Monocytes/100 5.8 % (N) 2 - 8 % [facility] WBC (Bld) [facility] (12779) Neutrophils 5.572 10*3/uL (N) 1.7 - 7 10*3/uL [facility] (Bld) [#/Vol] [facility] (78405) Neutrophils/100 79.6 % (N) 40 - 60 % [facility] WBC (Bld) [facility] (55758) Platelet mean 9.4 fL (N) 7.2 - 11.7 fL [facility] volume (Bld) [facility] [Entitic vol] [facility] (81582) Platelets (Bld) 211 10*3/uL (N) 150 - 450 [facility] [#/Vol] 10*3/uL [facility] (55227) RBC (Bld) 3.69 10*6/uL (L) 4.2 - 6.1 [facility] lt [#/Vol] 10*6/uL [facility] (62987) Reagin Ab RPR Ql NON-REACTIVE (N) [facility] lt (S) [facility] (15311) WBC (Bld) 7.0 10*3/uL (N) 3.5 - 10.5 [facility] [#/Vol] 10*3/uL [facility] (30636) No panel information on 2019-05-25 Blood group NO ANTIBODIES (N) [facility] h antibody screen DETECTED [facility] (75864) Protein (U) Neg~Neg (no code) [facility] [Mass/Vol] [facility] () No panel information on 2019-04-27 Protein (U) neg~neg (no code) [facility] [Mass/Vol] [facility] () No panel information on 2019-03-30 ABO group Nom A (no code) [facility] (Bld) [facility] () Bacteria SEE NOTE (no code) [facility] h identified Cx [facility] Nom (U) [facility] () Basophils (Bld) 0.027 10*3/uL (N) 0 - 0.3 10*3/uL [facility] [#/Vol] [facility] () Basophils/100 0.3 % (N) 0.5 - 1 % [facility] WBC (Bld) [facility] () BLO 05/10~clear~yell (no code) [facility] ow~no~neg~neg~ne [facility] g~>=1.030~trace [facility] () Eosinophils 0.127 10*3/uL (N) 0.05 - 0.5 [facility] He alth (Bld) [#/Vol] 10*3/uL [facility] () Eosinophils/100 1.4 % (N) 1 - 4 % [facility] WBC (Bld) [facility] () Erythrocyte 12.8 % (N) 11.6 - 14.6 % [facility] ealth distribution [facility] (RBC) [facility] [Ratio] (23390) GC Neg~Neg (no code) [facility] () Hematocrit (Bld) 37.7 % (N) 36.1 - 50.3 % [facility] [Volume [facility]] [facility] () Hemoglobin (Bld) 12.2 g/dL (N) 12.1 - 17.2 g/dL [facility] [Mass/Vol] [facility] () FLORIAN neg~1+ (no code) [facility] (14425) Lot # [id number] (no code) [facility] (66942) Lymphocytes 1.574 10*3/uL (N) 0.9 - 2.9 [facility] (Bld) [#/Vol] 10*3/uL [facility] (18690) Lymphocytes/100 17.3 % (N) 20 - 40 % [facility] WBC (Bld) [facility] (27841) MCH (RBC) 28.8 pg (N) 27 - 31 pg [facility] th [Entitic mass] [facility] (91557) MCHC (RBC) 32.4 g/dL (N) 32 - 36 g/dL [facility] He alth [Mass/Vol] [facility] (44142) MCV (RBC) 88.9 fL (N) 80 - 100 fL [facility] Hea lth [Entitic vol] [facility] (55628) Monocytes (Bld) 0.491 10*3/uL (N) 0.3 - 0.9 [facility] [#/Vol] 10*3/uL [facility] (99121) Monocytes/100 5.4 % (N) 2 - 8 % [facility] He alth WBC (Bld) [facility] (35484) Neutrophils 6.88 10*3/uL (N) 1.7 - 7 10*3/uL [facility] (Bld) [#/Vol] [facility] (98217) Neutrophils/100 75.6 % (N) 40 - 60 % [facility] WBC (Bld) [facility] (87355) pH (Bld) 6.0 [pH] (no code) 7.38 - 7.42 [pH] [facility] (89481) Platelet mean 9.4 fL (N) 7.2 - 11.7 fL [facility] volume (Bld) [facility] [Entitic vol] [facility] (80208) Platelets (Bld) 283 10*3/uL (N) 150 - 450 [facility] Health [#/Vol] 10*3/uL [facility] (41432) Protein (U) no information (no code) 0 - 20 mg/dL [facility] [Mass/Vol] [facility] (52244) RBC (Bld) 4.24 10*6/uL (N) 4.2 - 6.1 [facility] Hea [facility]th [#/Vol] 10*6/uL [facility] (32915) Rh Nom (Bld) no information (no code) [facility] (32529) Rubella virus 0.94 (L) [facility] IgG Qn (S) [facility] (17357) TSH Qn 0.49 m[IU]/L (N) 0.4 - 4 m[IU]/L [facility] (15316) URO 0.2 (no code) [facility] (65819) WBC (Bld) 9.1 10*3/uL (N) 3.5 - 10.5 [facility] [#/Vol] 10*3/uL [facility] (74395) No panel information on 2018-02-11 Exp date +~07/2019 (no code) Not Available (45763) Lot # [id number] (no code) Not Available (04018) RESULTS no information (no code) Not Available (30898) venous blood hemoglobin measurement (mass/volume) on 2017-12-30 Hemoglobin (HGB) 10.2 g/dL (L) 12 - 18 g/dL [facility] (91124) blood neutrophils automated count (number/volume) on 2017-12-30 Neutrophils 9.1 10*3/uL (H) 1.5 - 7.8 Via [facility] 10*3/uL [facility] (90324) blood monocytes/100 leukocytes on 2017-12-30 Monocytes/100 10 % (no code) 2 - 8 % Via [facility] leukocytes [facility] (88907) blood monocytes automated count (number/volume) on 2017-12-30 Monocytes 1.2 10*3/uL (H) 0.2 - 1.1 Via [facility] [place] 10*3/uL [facility] (65949) blood lymphocytes automated count (number/volume) on 2017-12-30 Lymphocytes 2.3 10*3/uL (no code) 0.85 - 4.1 Via [facility] [place] 10*3/uL [facility] (98656) blood leukocytes automated count (number/volume) on 2017-12-30 WBC (Leukocytes) 12.6 10*3/uL (H) 3.8 - 10.8 Via [facility] sti 10*3/uL [facility] (81142) blood hematocrit (volume fraction) on 2017-12-30 Hematocrit (HCT) 31 % (L) 39 - 51 % Via [facility] (49897) blood erythrocytes automated count (number/volume) on 2017-12-30 Erythrocytes 3.38 10*6/uL (L) 4.2 - 6.1 Via [facility] [place] (RBC) 10*6/[facility] (17101) automated erythrocyte mean corpuscular volume on 2017-12-30 MCV 91 fL (no code) 80 - 100 fL Via [facility] (40118) automated erythrocyte mean corpuscular hemoglobin concentration measurement (mass/volume) on 2017-12-30 MCHC 33 g/dL (no code) 32 - 36 g/dL [facility] (28389) automated erythrocyte mean corpuscular hemoglobin (mass per erythrocyte) on 2017-12-30 MCH 30 pg (no code) 27 - 31 pg [facility] (41774) automated erythrocyte distribution width ratio on 2017-12-30 RDW-CA 15.3 % (H) 11 - 15 % [facility] (21942) automated eosinophil count on 2017-12-30 Eosinophils 0.1 10*3/uL (no code) 0.05 - 1.5 Via [facility] [place] 10*3/[facility] (36803) automated blood platelet mean volume measurement on 2017-12-30 Platelet mean 8.8 fL (no code) 7.2 - 11.7 fL Via [facility] (PMV) [facility] (40266) automated blood platelet count (count/volume) on 2017-12-30 Platelets 198 10*3/uL (no code) 150 - 400 [facility] [facility], [place] 10*3/uL [facility] ([id number]) automated blood neutrophils/100 leukocytes on 2017-12-30 Neutrophils/100 72 % (no code) 40 - 60 % Via [facility] ([id number]) automated blood lymphocytes/100 leukocytes on 2017-12-30 Lymphocytes/100 18 % (no code) 20 - 40 % Via [facility] leukocytes [facility] ([id number]) automated blood eosinophils/100 leukocytes on 2017-12-30 Eosinophils/100 0 % (no code) 1 - 4 % Via [facility] ([id number]) automated blood basophils/100 leukocytes on 2017-12-30 Basophils/100 0 % (no code) 0.5 - 1 % Via [facility] ([id number]) automated blood basophil count (count/volume) on 2017-12-30 Basophils 0.0 10*3/uL (no code) 0 - 0.2 10*3/uL Via [facility] (09149) manual blood segmented neutrophils/100 leukocytes on 2017-12-29 Segmented 82 % (no code) 35 - 80 % Via [facility] [place] Neutrophils/100 [facility] (04964) manual blood lymphocytes/100 leukocytes on 2017-12-29 Lymphocytes/100 4 % (no code) 20 - 40 % Via [facility] (41556) blood monocytes/100 leukocytes on 2017-12-29 Monocytes/100 2 % (no code) 2 - 8 % Via [facility] ([id number]) blood erythrocyte morphology finding identification on 2017-12-29 Erythrocyte NORMAL (no code) Via [facility] [place] morphology [facility] ([id number]) blood band neutrophils/100 leukocytes on 2017-12-29 Neutrophils 12 % (no code) 0 - 3 % Via [facility] [place] band/100 [facility] (60981) No panel information on 2017-12-27 Protein mass neg~neg (no code) [facility] (24991) No panel information on 2017-12-20 Protein mass neg~trace (no code) [facility] Healt h conc (U) [facility] ([id number]) STREPTOCOCCUS, SEE NOTE (A) [facility] CULT[facility] (46901) No panel information on 2017-11-29 Protein mass no information (no code) 0 - 20 mg/dL no infor mation conc (U) No panel information on 2017-10-25 Protein mass no information (no code) 0 - 20 mg/dL [facility] (U) [facility] (64550) No panel information on 2017-10-04 Basophils Auto 0.017 10*3/uL (N) 0 - 0.3 10*3/uL [facility] #/vol (Bld) [facility] (92993) Basophils/100 0.2 % (N) 0.5 - 1 % [facility] WBC Auto (Bld) [facility] (06971) Eosinophils Auto 0.066 10*3/uL (N) 0.05 - 0.5 [facility] #/vol (Bld) 10*3/uL [facility] (40566) Eosinophils/100 0.8 % (N) 1 - 4 % [facility] WBC Auto (Bld) [facility] (54687) Erythrocyte 12.9 % (N) 11.6 - 14.6 % [facility] ealth distribution [facility] Auto Ratio [facility] (RBC) (63664) GLUCOSE, 70 (N) [facility] Healt h POSTPRANDIAL/ 1 [facility] (03276) Hematocrit Auto 32.0 % (L) 36.1 - 50.3 % [facility] Volume Fraction [facility] (Bld) [facility] (71421) Hemoglobin mass 11.0 g/dL (L) 12.1 - 17.2 g/dL [facility] Health conc (Bld) [facility] (70464) Lymphocytes Auto 1.494 10*3/uL (N) 0.9 - 2.9 [facility] #/vol (Bld) 10*3/uL [facility] (07733) Lymphocytes/100 18.0 % (N) 20 - 40 % [facility] WBC Auto (Bld) [facility] (93401) MCH Auto Entitic 29.7 pg (N) 27 - 31 pg [facility] Health mass (RBC) [facility] (47543) MCHC Auto mass 34.4 g/dL (N) 32 - 36 g/dL [facility] conc (RBC) [facility] (32650) MCV Auto Entitic 86.5 fL (N) 80 - 100 fL [facility] Health volume (RBC) [facility] (02169) Monocytes Auto 0.515 10*3/uL (N) 0.3 - 0.9 [facility] Health #/vol (Bld) 10*3/uL [facility] (99975) Monocytes/100 6.2 % (N) 2 - 8 % [facility] WBC Auto (Bld) [facility] (00496) Neutrophils Auto 6.208 10*3/uL (N) 1.7 - 7 10*3/uL [facility] #/vol (Bld) [facility] (51538) Neutrophils/100 74.8 % (N) 40 - 60 % [facility] WBC Auto (Bld) [facility] (64118) Platelet mean 9.3 fL (N) 7.2 - 11.7 fL [facility] volume Auto [facility] (Bld) (72461) Platelets Auto 245 10*3/uL (N) 150 - 450 [facility] ealth #/vol (Bld) 10*3/uL [facility] (63087) Protein mass no information (no code) 0 - 20 mg/dL [facility] By [facility] conc (U) [facility] (68904) RBC Auto #/vol 3.70 10*6/uL (L) 4.2 - 6.1 [facility] (Bld) 10*6/uL [facility] (95666) WBC Auto #/vol 8.3 10*3/uL (N) 3.5 - 10.5 [facility] ealth (d) 10*3/uL [facility] (84323) No panel information on 2017-08-30 Protein mass no information (no code) 0 - 20 mg/dL [facility] Health conc (U) [facility] (43597) No panel information on 2017-07-26 AFP mass conc 26.2 ng/mL (no code) 0 - 6 ng/mL [facility] ealth [facility] (89900) AFP MoM 1.07 (no code) [facility] (68374) Age Risk Down 1:1018 (no code) [facility] Syndrome [facility] (55752) Calc'd 15.0 (no code) [facility] Gestational Age [facility] (75906) Cigarette smoker NOT GIVEN (no code) [facility] (91030) Collection Date 07/26/2017 (no code) [facility] (47080) Date of 1990 (no code) [facility] (22775) Donor Age: Egg NOT GIVEN (no code) [facility] Retrieval [facility] (80332) Donor Egg NO (no code) [facility] (34076) ELVA Determined LMP (no code) [facility] by [facility] (07134) Est'd Date of 01/17/2018 (no code) [facility] Delivery [facility] (27590) Estriol 0.62 ng/mL (no code) 0 - 0.08 ng/mL [facility] (E3).unconjugate [facility] mass conc [facility] (94185) Estriol MoM 1.17 (no code) [facility] (83946) h-hCG MoM 1.06 (no code) [facility] (44229) h-hCG, Serum 34.5 (no code) [facility] (14218) hCG MoM 0.60 (no code) [facility] (28294) HCG.beta subunit 23.4 (no code) [facility] Qn [facility] (17418) Hx Of Neural NO (no code) [facility] Tube Defects [facility] (86741) Inhibin A 0.46 (no code) [facility] adjusted MoM [facility] (65454) Inhibin A mass 75 (no code) [facility] conc [facility] (40993) Insulin Depend NO (no code) [facility] Diabetic [facility] (85876) INTERPRETATION: SEE NOTE (no code) [facility] (00064) Maternal Weight 188 (no code) [facility] (92319) Mother's Ethnic (no code) [facility] Origin [facility] (59150) COLLIN Down <1:5000 (no code) [facility] Risk [facility] (31718) COLLIN Trisomy 18 <1:5000 (no code) [facility] Healt Risk [facility] (42655) Number of 1 (no code) [facility] Healt fetuses by US [facility] (01504) Prev NO (no code) [facility] Down Synd [facility] (90178) Repeat Specimen NO (no code) [facility] (92954) Risk for ONTD <1:5000 (no code) [facility] Healt [facility] (69657) Rubella virus <0.90 (L) [facility] IgG Qn (S) [facility] (82214) Vital Signs Vital Sign Value Interpretation Reference Date Time Care Prov ider Facility (Normalized) (Normalized) Range BMI (Body Mass 32.87 kg/m2 (no code) 15 - 25 kg/m2 02-11-2018 B [facility] Community Index) 15:00 51056 [facility] (28886) BMI (Body Mass 38.44 kg/m2 (no code) 15 - 25 kg/m2 12-27-2017 B ETHANY BLAKE Community Index) 14:200400 13451 [facility] (54180) BMI (Body Mass 37.93 kg/m2 (no code) 15 - 25 kg/m2 12-20-2017 B ETHANY BLAKE Community Index) 14:200400 62097 [facility] (93698) BMI (Body Mass 37.2 kg/m2 (no code) 15 - 25 kg/m2 11-29-2017 [facility] Community Index) 15:200400 42504 [facility] (55249) BMI (Body Mass 36.77 kg/m2 (no code) 15 - 25 kg/m2 11-15-2017 B ETHANY BLAKE Community Index) 15:20-0400 28377 [facility] (01527) BMI (Body Mass 35.82 kg/m2 (no code) 15 - 25 kg/m2 10-25-2017 B [facility] Index) 15:00-0400 02632 [facility] (30415) Body 98 [degF] (no code) 97.8 - 99.0 02-11-2018 [facility] Community Temperature [degF] 15:00-0400 96124 [facility] Cent[facility] (85845) Body 98.3 [degF] (no code) 97.8 - 99.0 12-27-2017 [facility] Community Temperature [degF] 14:20-0400 26238 [facility] Cent[facility] (10221) Body 98 [degF] (no code) 97.8 - 99.0 12-20-2017 LAX[facility] Community Temperature [degF] 14:20-0400 41471 Health Cente [facility] (71158) Body 98 [degF] (no code) 97.8 - 99.0 11-29-2017 [facility] Community Temperature [degF] 15:20-0400 78928 Health Cent[facility] r [facility] (63616) Body 97.8 [degF] (no code) 97.8 - 99.0 11-15-2017 LAXMI EN [facility] Temperature [degF] 15:20-0400 99082 Health Cente [facility] (74410) Body 98.5 [degF] (no code) 97.8 - 99.0 10-25-2017 LAXMI EN [facility] Community Temperature [degF] 15:00-0400 25222 Health Cent[facility] r [facility] (74779) Body 97.9 [degF] (no code) 97.8 - 99.0 09-29-2014 [facility]XMI EN [facility] Community Temperature [degF] 16:40-0400 64402 Health Cent[facility] (64092) Body 97.7 [degF] (no code) 97.8 - 99.0 08-02-[address] [facility] Community Temperature [degF] 17:30-0500 59177 [facility] (20181) Body weight 91.36 kg (no code) kg 09-29-2014 [facility] 16:40-0400 90879 [facility] (34603) Body weight 88.81 kg (no code) kg 08-02-2014 PATRICIA avilesMARLENCameron [facility] 17:30-0500 92435 [facility] (67914) Height 160.02 cm (no code) cm 02-11-2018 [facility] 15:00-0400 82644 [facility] (37819) Height 160.02 cm (no code) cm 12-27-2017 [facility] 14:20-[id number] [place] [address] (81900) Height 160.02 cm (no code) cm 12-20-2017 [facility] 14:20-[id number] [place] [address] (91922) Height 160.02 cm (no code) cm 11-29-2017 [facility] 15:20-0400 70274 [facility] (51476) Height 160.02 cm (no code) cm 11-15-2017 [facility] 15:20-0400 95986 [facility] (57299) Height 160.02 cm (no code) cm 10-25-2017 [facility] 15:00-0400 55090 [facility] (01313) Height 160.02 cm (no code) cm 09-29-2014 [facility] 16:40-0400 29467 [facility] (00691) Height 160.02 cm (no code) cm 08-02-2014 PATRICIA Posey [facility] 17:30-0500 29484 [facility] (77890) Weight 84.19 kg (no code) kg 02-11-2018 [facility]MI [facility]KE [facility] 15:00-0400 92504 [facility] (18674) Weight 98.43 kg (no code) kg 12-27-2017 LAXMI [facility] 14: 42825 [facility] (60360) Weight 97.12 kg (no code) kg 12-20-2017 [facility] 14:0400 53330 [facility] (93000) Weight 95.26 kg (no code) kg 11-29-2017 [facility] 15:0400 19067 [facility] (61374) Weight 94.17 kg (no code) kg 11-15-2017 [facility] 15:0400 46576 [facility] (29000) Weight 91.72 kg (no code) kg 10-25-2017 [facility] 15:0400 44072 [facility] (20868) Interventions No Information Plan of Treatment The data below is from unstructured sources Activity Details Follow Up 4W, 4 Weeks Reason: Discharge Date 12/31/17 2:25pm Disposition 01 HOME, SELF-CARE Instructions/Education Provided VAGI NAL DELIVERY DISCHARGE Forms Provided PDI Prescriptions See Medication Section Additional Instructions/Education Po stpartum Follow-up Appointment with Dr. Lozano: Saturday02/11/2018 at 2:00 PM. Activity Details Follow Up 4 Weeks Reason: Activity Details Follow Up 3 Weeks, 3 Weeks Reason: Activity Details Follow Up 2 Weeks, 2 Weeks, 2 Weeks Reason: Activity Details Follow Up 2 Weeks Reason: Activity Details Follow Up 2 Weeks, 2 Weeks, 2 Weeks, 2 Weeks Reason: Activity Details Follow Up 1 Week, 1 Week Reason: Activity Details Follow Up 1 Year Reason:well woman Goals No Information Social History No Information Functional Status The data below is from unstructured sourcesNo functional status information available. Mental Status No Information Encounters Encounter Normalized Encounter Encounter Diagnosis Care Provi harry Organization Date Type 12-29-2017 Evaluation and no information TIMOTHY MENDOZA Work no organization name - management of (no phone ) 12-31-2017 inpatient 02-03-2015 Evaluation and no information no name (no phone) n o organization name - management of (no phone) 02-06-2015 inpatient 02-11-2018 Patient encounter no information no name (no phone) no organization name (no phone) NEGATED Patient encounter no information no name (no phone) no organization name 12-29-2017 (no phone) 12-27-2017 Patient encounter no information LAXMI Avel CASEYBLAKE Karina rk no organization name (no phone) 12-20-2017 Patient encounter no information no name (no phone) no organization name (no phone) 11-29-2017 Patient encounter no information no name (no phone) no organization name (no phone) 11-15-2017 Patient encounter no information no name (no phone) no organization name (no phone) 10-25-2017 Patient encounter no information no name (no phone) no organization name (no phone) 10-18-2017 Patient encounter no information no name (no phone) no organization name (no phone) 10-04-2017 Patient encounter no information no name (no phone) no organization name (no phone) NEGATED Patient encounter no information no name (no phone) no organization name 09-06-2017 (no phone) 08-30-2017 Patient encounter no information no name (no phone) no organization name (no phone) 07-26-2017 Patient encounter no information no name (no phone) no organization name (no phone) 06-19-2017 Patient encounter no information no name (no phone) no organization name (no phone) 09-29-2014 Patient encounter no information no name (no phone) no organization name (no phone) 09-15-2014 Patient encounter no information no name (no phone) no organization name (no phone) Patient encounter no information no name (no phone) no organ ization name (no phone) 10-21-2019 Patient encounter no information (no phone) [facility] Health procedure [facility] (no phone) 10-15-2019 Patient encounter no information NONE PCP (no phone ) [facility] procedure [facility] (no phone) 10-07-2019 Patient encounter no information NONE PCP (no phone ) [facility] procedure (no phone) (no phone) [facility] (no phone) 09-30-2019 Patient encounter no information NONE PCP (no phone ) [facility] procedure (no phone) [facility] (no phone) 09-16-2019 [facility] no information (no phone[facility] (no phone) 09-02-2019 Patient encounter no information (no phone) [facility] procedure [facility] (no phone) 08-19-2019 Patient encounter no information no name (no phone) no organization name procedure (no phone) 08-07-2019 Patient encounter no information no name (no phone) no organization name procedure (no phone) 06-24-2019 Patient encounter no information no name (no phone) no organization name procedure (no phone) 06-19-2019 Patient encounter no information no name (no phone) no organization name procedure (no phone) 05-25-2019 Patient encounter no information no name (no phone) no organization name procedure (no phone) 04-27-2019 Patient encounter no information no name (no phone) no organization name procedure (no phone) 04-06-2019 Patient encounter no information no name (no phone) no organization name procedure (no phone) 03-30-2019 Patient encounter no information no name (no phone) no organization name procedure (no phone) no information Dental examination no name (no phone) no orga nization name (no phone) Medical Equipment No Information Payers Normalized Payer Value Unknown [id number]) History general Narrative - Reported Note Type Note Facility History general Narrative - Reported Type Medical Migraines with aura History Medical Anemia History Surgical oral surgery to remove prim ralph teeth and excise permanent teeth from roof of History mouth Hospitaliz see surgeries [facility] Hospital L&D 01/2015 [facility] L&D 12/2017 [facility] ([id number]) Summary Purpose eClinicalWorks SubmissioneClinicalWorks SubmissioneClinicalWorks Submission Advance Directives Directive Response Recor ded Date/Time Advance Directives No 6:10pm Resuscitation Status Full Code 12/29/17 6:10pm Discharge Instructions No hospital discharge instruction information available. Additional Source Comments This clinical document has been generated using [employer] software that has been certified by the Office of the National Coordinator for Health Information Technology (ONC 15.99.04.3023.Diam.31.00.0.113587) and the National Committee for [employer] (NCQA, as an eMeasure certified technology). FOR RECORDS PERTAINING TO PATIENTS WHO ARE OR HAVE BEEN ENROLLED IN A CHEMICAL D EPENDENCY/SUBSTANCE ABUSE PROGRAM, SOME INFORMATION MAY BE OMITTED. This clinica l summary was aggregated from multiple sources. Caution should be exercised in using it in the provision of clinical care. This summary normalizes information from multiple sources, and as a consequence, information in this document may ma terially change the coding, format and clinical context of patient data. In vernon tion, data may be omitted in some cases. CLINICAL DECISIONS SHOULD BE BASED ON T HE PRIMARY CLINICAL RECORDS. [employer] [facility]. provides no warranty or guara ntee of the accuracy or completeness of information in this document.The followi information is based on time limited clinical information UNRECOGNIZED CONTENT PROVIDED BELOW FOR UNRECOGNIZED SECTION MEDICAL (GENERAL) HISTORY Type Description Date Medical History Migraines with aura Surgical History oral surgery to rem ove primary teeth and excise permanent teeth from roof of mouth Hospitalization History see surgeries Type Description Date Medical History Migraines with aura Medical History Anemia Surgical History oral surgery to rem ove primary teeth and excise permanent teeth from roof of mouth Hospitalization History see surgeries Hospitalization History L&D 01/2015 Hospitalization History L&D 12/2017 UNRECOGNIZED CONTENT PROVIDED BELOW FOR UNRECOGNIZED SECTION REASON FOR VISIT 6wk Post [id number]
--- OUTSIDE RECORDS SUMMARY | 2019-11-03 06:01 | XMS REPORT ---
Author Author Ciara LOZANO Organization [facility] [place] Address [address] [place] [address] Care Team Providers Care Child Care Education Coordinator Name Role Phone BLAKE LAXMI Unavailable PROBLEMS Type Condition ICD9-CM Code PNV10-DI Code Onset Dates Condition S tatus SNOMED Code Problem Migraine with aura and without status migrainosu s, not intractable G43.109 Active [id number] ALLERGIES No Information ENCOUNTERS Encounter Location Date Diagnosis [place] [id number] [address] [place] [address] Feb, [address] [address] Jan, Encounter for vis it Z39.2 and control counseling Z30.09 [place] [address] [address] [place] [id number] [address] [place] [address] Dec, care, subsequent pr egnancy in third trimester Z34.83 and 37 weeks gestation of Z3A.37 [place] [address] [address] [place] [id number] [address] [place] [address] Dec, care, subsequent pr egnancy in third trimester Z34.83 ; 36 weeks gestation of Z3A.36 and Antepartum malpresentation of fetus P01.7 [place] [address] [address] [place] [id number] [address] [place] [address] November, care, subsequent pr egnancy in third trimester Z34.83 ; 33 weeks gestation of Z3A.33 and Decreased movements in third trimester, single or unspecified fetus O36.8130 [place] [address] [address] [place] [id number] [address] [place] [address] Oct, care, subsequent pr egnancy in third trimester Z34.83 ; Encounter for immunization Z23 and 31 weeks gestation of Z3A.31 [place] [address] [address] [facility] [id number] [address] [place] [address] Oct, Third trimester Z3 4.93 and 28 weeks gestation of Z3A.28 [place] [address] [address] [facility] [id number] [address] [place] [address] Sep, care, subsequent pr egnancy in second trimester Z34.82 ; Diabetes mellitus screening Z13.1 ; 25 weeks gestation of Z3A.25 and Evaluate anatomy not seen on prior sonogram Z04.8 [place] [address] [address] [facility] [id number] [address] [place] [id number] 09 Aug, 2017 care, subsequent pr egnancy in second trimester Z34.82 ; Second trimester Z34.92 and 20 weeks gestation of Z3A.20 [place] [address] [address] [facility] [id number] [address] [place] [address] Jul, [place] [address] [address] [facility] [id number] [address] [place] [address] Jul, Normal in multigra michael Z34.80 ; care, subsequent in second trimester Z34.82 and 15 weeks gestation of Z3A.15 [place] [address] [address] [facility] [id number] [address] [place] [address] May, Normal in multigra michael Z34.80 and 9 weeks gestation of Z3A.09 [place] [address] [id number] [address] [place] [address] Apr, [place] [address] [address] [facility] [id number] [address] [place] [address] Apr, Encounter for test Z32.00 [place] [address] [address] [facility] [id number] [address] [place] [address] 09 Mar, 2016 Hirsutism L68.0 [place] [address] [address] [facility] [id number] [address] [place] [address] Feb, Well woman exam (no gynecolo gical exam) Z00.00 ; control counseling Z30.9 ; Migraine with aura and without status migrainosus, not intractable G43.109 and Hirsutism L68.0 [facility] [place] [address] [facility] [id number] [address] [place] [address] Mar, Routine follow-up V24.2 ; anemia 648.24 and Contraception management V25.9 [facility] [place] [address] [facility] [id number] [address] [place] [address] Jan, Supervision of normal first V22.0 [facility] [address] [facility] [id number] [address] [place] [id number] Jan, Dental examination V72.2 [facility] [place] [address] [facility] [id number] [address] [place] [address] Jan, Supervision of normal first V22.0 [facility] [place] [address] [facility] [id number] [address] [place] [address] Jan, Supervision of normal first V22.0 [facility] [place] [address] [facility] [id number] [address] [place] [address] Dec, [facility] [place] [address] [facility] [id number] [address] [place] [address] Dec, Supervision of normal first V22.0 [facility] [place] [address] [facility] [id number] [address] [place] [phone] Dec, [facility] [place] [address] [facility] [id number] [address] [place] [address] Dec, Supervision of normal first V22.0 [facility] [place] [address] [facility] [id number] [address] [place] [address] Dec, Supervision of normal first V22.0 [facility] [place] [address] [facility] [id number] [address] [place] [address] Dec, [facility] [place] [address] [id number] [address] [place] [id number] Dec, Supervision of normal first V22.0 [facility] [address] [id number] [address] [place] [id number] November, Dental examination V72.2 [facility] [place] [address] [id number] [address] [place] [phone] November, Rubella non-immune status, a ntepartum 646.83 and Supervision of normal first V22.0 [facility] [place] [address] [id number] [address] [place] [phone] November, [facility] [place] [address] [id number] [address] [place] [address] November, Supervision of normal first V22.0 ; Screening for diabetes mellitus V77.1 and Screening, iron deficiency anemia V78.0 [facility] [place] [address] [id number] [address] [place] [phone] Oct, [facility] [place] [address] [id number] [address] [place] [phone] Oct, [facility] [place] [address] [id number] [address] [place] [id number] Sep, [facility] [place] [address] [id number] [address] [place] [phone] Sep, [facility] [place] [address] [id number] [address] [place] [phone] Sep, [facility] [place] [address] [id number] [address] [place] [id number] Sep, [facility] [place] [address] [id number] [address] [place] [phone] Sep, [facility] [place] [address] [id number] [address] [place] [phone] Sep, [facility] [place] [address] [id number] [address] [place] [address], [place] [address] 04 Sep, 2014 [facility] [address] [id number] [address] [place] [address], [place] [address] Sep, [facility] [address] [id number] [address] [place] [address], [place] [address] Sep, [facility] [address] [id number] [address] [place] [address], [place] [address] Sep, [facility] [address] [id number] [address] [place] [address], [place] [address] Sep, [facility] [address] [id number] [address] [place] [address], [place] [address] Aug, [facility] [address] [id number] [address] [place] [address], [place] [address] Aug, [facility] [address] [id number] [address] [place] [address], [place] [address] 15 Aug, 2014 [facility] [address] [id number] [address] [place] [address], [place] [address] Aug, [facility] [address] [id number] [address] [place] [address], [place] [address] Aug, [facility] [address] [id number] [address] [place] [address], [place] [address] Aug, [facility] [address] [id number] [address] [place] [address], [place] [address] Jul, [facility] [address] [id number] [address] [place] [address], [place] [address] Jul, [facility] [address] [id number] [address] [place] [address], [place] [address] Jul, [facility] [address] [id number] [address] [place] [address], [place] [address] Jul, [facility] [address] [id number] [address] [place] [address], [place] [address] Jun, [facility] [place] [address] [id number] [address] [place] [phone] Jun, [facility] [place] [address] [id number] [address] [place] [phone] Jun, [facility] [place] [address] [id number] [address] [place] [id number] Jun, [facility] [place] [address] [id number] [address] [place] [id number] May, [facility] [place] [address] [id number] [address] [place] [address] May, [facility] [place] [address] [id number] [address] [place] [address] Dec, [facility] [place] [address] [id number] [address] [place] [id number] Dec, [facility] [place] [address] [id number] [address] [place] [address] Jun, [facility] [place] [address] [id number] [address] [place] [address] Jun, IMMUNIZATIONS No Known Immunizations SOCIAL HISTORY [...]
--- OUTSIDE RECORDS SUMMARY | 2019-11-03 06:01 | XMS REPORT ---
Author Author Ciara LOZANO Organization [facility] [place] Address [address] [place] [address] Care Team Providers Care Fast Food Assistant Restaurant Manager Name Role Phone BLAKE LAXMI Unavailable PROBLEMS Type Condition ICD9-CM Code KOT74-VJ Code Onset Dates Condition S tatus SNOMED Code Problem Migraine with aura and without status migrainosu s, not intractable G43.109 Active [id number] ALLERGIES No Information ENCOUNTERS Encounter Location Date Diagnosis [place] [id number] [address] [place] [address] Feb, [address] [address] Jan, Encounter for vis it Z39.2 and control counseling Z30.09 [place] [address] [address] [place] [id number] [address] [place] [address] Dec, care, subsequent pr egnancy in third trimester Z34.83 and 37 weeks gestation of Z3A.37 [place] [address] [address] [place] [id number] [address] [place] [address] Dec, care, subsequent pr egnancy in third trimester Z34.83 ; 36 weeks gestation of Z3A.36 and Antepartum malpresentation of fetus P01.7 [place] [address] [address] [place] [id number] [address] [place] [address] November, care, subsequent pr egnancy in third trimester Z34.83 ; 33 weeks gestation of Z3A.33 and Decreased movements in third trimester, single or unspecified fetus O36.8130 [place] [address] [address] [place] [id number] [address] [place] [address] Oct, care, subsequent pr egnancy in third trimester Z34.83 ; Encounter for immunization Z23 and 31 weeks gestation of Z3A.31 [place] [address] [facility] [id number] [place] [address] Oct, Third trimester Z3 4.93 and 28 weeks gestation of Z3A.28 [place] [address] [address] [facility] [id number] [place] [address] Sep, care, subsequent pr egnancy in second trimester Z34.82 ; Diabetes mellitus screening Z13.1 ; 25 weeks gestation of Z3A.25 and Evaluate anatomy not seen on prior sonogram Z04.8 [place] [address] [facility] [id number] [place] [address] 09 Aug, 2017 care, subsequent pr egnancy in second trimester Z34.82 ; Second trimester Z34.92 and 20 weeks gestation of Z3A.20 [place] [address] [facility] [id number] [place] [address] Jul, [place] [address] [facility] [id number] [place] [address] Jul, Normal in multigra michael Z34.80 ; care, subsequent in second trimester Z34.82 and 15 weeks gestation of Z3A.15 [place] [address] [facility] [id number] [place] [address] May, Normal in multigra michael Z34.80 and 9 weeks gestation of Z3A.09 [place] [address] [id number] [address] [place] [phone] Apr, [place] [address] [facility] [id number] [place] [address] Apr, Encounter for test Z32.00 [place] [address] [facility] [id number] [place] [id number] 09 Mar, 2016 Hirsutism L68.0 [place] [address] [facility] [id number] [place] [address] Feb, Well woman exam (no gynecolo gical exam) Z00.00 ; control counseling Z30.9 ; Migraine with aura and without status migrainosus, not intractable G43.109 and Hirsutism L68.0 [facility] [place] [address] [facility] [id number] [place] [address] Mar, Routine follow-up V24.2 ; anemia 648.24 and Contraception management V25.9 [facility] [place] [address] [facility] [id number] [place] [phone] Jan, Supervision of normal first V22.0 [facility] [address] [facility] [id number] [address] [place] [id number] Jan, Dental examination V72.2 [facility] [place] [address] [facility] [id number] [place] [phone] Jan, Supervision of normal first V22.0 [facility] [place] [address] [facility] [id number] [place] [phone] Jan, Supervision of normal first V22.0 [facility] [place] [address] [facility] [id number] [place] [phone] Dec, [facility] [place] [address] [facility] [id number] [place] [id number] Dec, Supervision of normal first V22.0 [facility] [place] [address] [facility] [id number] [place] [phone] Dec, [facility] [place] [address] [facility] [id number] [place] [id number] Dec, Supervision of normal first V22.0 [facility] [place] [address] [facility] [id number] [place] [phone] Dec, Supervision of normal first V22.0 [facility] [place] [address] [facility] [id number] [place] [id number] Dec, [facility] [place] [address] [id number] [address] [place] [id number] Dec, Supervision of normal first V22.0 [facility] [address] [id number] [address] [place] [id number] November, Dental examination V72.2 [facility] [place] [address] [id number] [address] [place] [phone] November, Rubella non-immune status, a ntepartum 646.83 and Supervision of normal first V22.0 [facility] [place] [address] [id number] [address] [place] [phone] November, [facility] [place] [address] [id number] [address] [place] [phone] November, Supervision of normal first V22.0 ; Screening for diabetes mellitus V77.1 and Screening, iron deficiency anemia V78.0 [facility] [place] [address] [id number] [address] [place] [phone] Oct, [facility] [place] [address] [id number] [address] [place] [phone] Oct, [facility] [place] [address] [id number] [address] [place] [phone] Sep, [facility] [place] [address] [id number] [address] [place] [phone] Sep, [facility] [place] [address] [id number] [address] [place] [id number] Sep, [facility] [place] [address] [id number] [address] [place] [id number] Sep, [facility] [place] [address] [id number] [address] [place] [phone] Sep, [facility] [place] [address] [id number] [address] [place] [id number] Sep, [facility] [place] [address] [id number] [address] [place] [address], [place] [address] 04 Sep, 2014 [facility] [address] [id number] [address] [place] [address], [place] [address] Sep, [facility] [address] [id number] [address] [place] [address], [place] [address] Sep, [facility] [address] [id number] [address] [place] [address], [place] [address] Sep, [facility] [address] [id number] [address] [place] [address], [place] [address] Sep, [facility] [address] [id number] [address] [place] [address], [place] [address] Aug, [facility] [address] [id number] [address] [place] [address], [place] [address] Aug, [facility] [address] [id number] [address] [place] [address], [place] [address] 15 Aug, 2014 [facility] [address] [id number] [address] [place] [address], [place] [address] Aug, [facility] [address] [id number] [address] [place] [address], [place] [address] Aug, [facility] [address] [id number] [address] [place] [address], [place] [address] Aug, [facility] [address] [id number] [address] [place] [address], [place] [address] Jul, [facility] [address] [id number] [address] [place] [address], [place] [address] Jul, [facility] [address] [id number] [address] [place] [address], [place] [address] Jul, [facility] [address] [id number] [address] [place] [address], [place] [address] Jul, [facility] [address] [id number] [address] [place] [address], [place] [address] Jun, [facility] [address] [id number] [address] [place] [id number] Jun, [facility] [place] [address] [id number] [address] [place] [id number] Jun, [facility] [place] [address] [id number] [address] [place] [id number] Jun, [facility] [place] [address] [id number] [address] [place] [id number] May, [facility] [place] [address] [id number] [address] [place] [id number] May, [facility] [place] [address] [id number] [address] [place] [id number] Dec, [facility] [place] [address] [id number] [address] [place] [id number] Dec, [facility] [place] [address] [id number] [address] [place] [id number] Jun, [facility] [place] [address] [id number] [address] [place] [id number] Jun, IMMUNIZATIONS No Known Immunizations SOCIAL HISTORY [...]
--- OUTSIDE RECORDS SUMMARY | 2019-11-03 06:01 | XMS REPORT ---
Author Author Ciara Posey Organization [facility] Address [address] [place] [address] Care Team Providers Care Chuck Wagon Cook Name Role Phone PATRICIA Posey Unavailable PROBLEMS Type Condition ICD9-CM Code QQN02-EZ Code Onset Dates Condition S tatus SNOMED Code Problem Migraine with aura and without status migrainosu s, not intractable G43.109 Active 2946771 Problem Encounter for genetic screening for Down Syndrome Z13.79 Active [id number] ALLERGIES No Information ENCOUNTERS Encounter Location Date Diagnosis [place] [address] [address] Jul, [place] [address] [place] [address] Jul, Second trimester Z 34.[address] [address] Jul, Second trimester Z34.92 and 25 weeks gestation of Z3A.25 [place] [id number] [place] [address] Jun, Second trimester Z34.92 [place] [address] [place] [address] May, Second trimester Z 34.92 [place] [address] [address] May, Second trimester Z34.92 and Pr enatal care, subsequent in second trimester Z34.82 [place] [address] [place] [id number] [place] [address] Apr, care, subsequent in s econd trimester Z34.82 [place] [address] [place] [address] 07 Apr, 2019 Second trimester Z34.92 ; Enco unter for immunization Z23 and 13 weeks gestation of Z3A.13 [place] [address] [place] [id number] [place] [address] 17 Mar, 2019 [facility] [address] [place] [address] 16 Mar, 2019 care, subsequent pr egnancy in first trimester Z34.81 [place] [address] [address] 09 Mar, 2019 care, subsequent in f irst trimester Z34.81 and 9 weeks gestation of Z3A.09 [place] [address] [address] 22 Feb, 2019 [place] [address] [address] Feb, [place] [address] [address] Feb, [place] [address] [address] Jan, Encounter for visit Z39.2 and control counseling Z30.09 [place] [address] [address] Dec, care, subsequent in t hird trimester Z34.83 and 37 weeks gestation of Z3A.37 [place] [address] [address] Dec, care, subsequent in t hird trimester Z34.83 ; 36 weeks gestation of Z3A.36 and Antepartum malpresentation of fetus P01.7 [place] [address] [place] [id number] [place] [address] November, care, subsequent in t hird trimester Z34.83 ; 33 weeks gestation of Z3A.33 and Decreased movements in third trimester, single or unspecified fetus O36.8130 [place] [address] [place] [id number] [place] [address] Oct, care, subsequent in t hird trimester Z34.83 ; Encounter for immunization Z23 and 31 weeks gestation of Z3A.31 [place] [address] [address] Oct, Third trimester Z34.93 and 28 weeks gestation of Z3A.[address] [address] Sep, care, subsequent in s econd trimester Z34.82 ; Diabetes mellitus screening Z13.1 ; 25 weeks gestation of Z3A.25 and Evaluate anatomy not seen on prior sonogram Z04.[address] [address] 09 Aug, 2017 care, subsequent in s econd trimester Z34.82 ; Second trimester Z34.92 and 20 weeks gestation of Z3A.20 [place] [address] [address] Jul, [address] [address] Jul, Normal in multigravida Z34.80 ; care, subsequent in second trimester Z34.82 and 15 weeks gestation of Z3A.[address] [address] May, Normal in multigravida Z34.80 and 9 weeks gestation of Z3A.09 [place] [address] [address] Apr, [address] [address] Apr, Encounter for test Z32.[address] [address] Mar, Hirsutism L68.0 [place] [address] [place] [id number] [place] [address] Feb, Well woman exam (no gynecological exam) Z00.00 ; control counseling Z30.9 ; Migraine with aura and without status migrainosus, not intractable G43.109 and Hirsutism L68.0 [facility] [address] [address] Mar, Routine follow-up V24.2 ; Pos tpartum anemia 648.24 and Contraception management V25.9 [facility] [address] [address] Jan, Supervision of normal first V2 2.0 [facility] [address] [facility] [place] [id number] Jan, Dental examination V72.2 [place] [address] [address] Jan, Supervision of normal first V2 2.0 [place] [address] [address] Jan, Supervision of normal first V2 2.0 [place] [address] [address] Dec, [facility] [address] [address] Dec, Supervision of normal first V2 2.0 [facility] [address] [address] Dec, [facility] [address] [address] Dec, Supervision of normal first V2 2.0 [place] [address] [address] Dec, Supervision of normal first V2 2.0 [facility] [address] [address] Dec, [facility] [address] [place] [address] Dec, Supervision of normal first V2 2.0 [facility] [address] [facility] [place] [id number] November, Dental examination V72.2 [facility] [address] [place] [id number] [place] [address] November, Rubella non-immune status, antepartum 64 6.83 and Supervision of normal first V22.0 [facility] [address] [place] [address] [place] [address] November, [facility] [address] [address] November, Supervision of normal first V2 2.0 ; Screening for diabetes mellitus V77.1 and Screening, iron deficiency anemia V78.0 [facility] [address] [place] [id number] [place] [address] 14 Oct, 2014 [facility] [address] [place] [id number] [place] [address] Oct, [facility] [address] [place] [id number] [place] [address] Sep, [facility] [address] [place] [id number] [place] [address] Sep, [facility] [address] [place] [id number] [place] [address] Sep, [facility] [address] [place] [id number] [place] [address] Sep, [facility] [address] [place] [address] [id number] [place] [address] Sep, [facility] [address] [place] [address] [place] [address] Sep, [facility] [address] [place] [id number] [place] [address] Sep, [facility] [address] [address] Sep, [facility] [address] [id number] [place] [address] Sep, 2014 [facility] [address] [id number] [place] [address] Sep, [facility] [address] [id number] [place] [address] Sep, [facility] [address] [id number] [place] [address] Aug, [facility] [address] [facility] [id number] [place] [address] Aug, 2014 [facility] [address] [id number] [place] [address] Aug, [facility] [address] [id number] [place] [address] Aug, [facility] [address] [id number] [place] [address] Aug, [facility] [address] [id number] [place] [address] Aug, [facility] [address] [id number] [place] [address] Jul, [facility] [address] [id number] [place] [address] Jul, [facility] [address] [id number] [place] [address] Jul, [facility] [address] [id number] [place] [address] Jul, [facility] [address] [id number] [place] [address] Jun, [facility] [address] [id number] [place] [address] Jun, [facility] [address] [id number] [place] [address] Jun, [facility] [address] [facility] [place] [address] Jun, [facility] [address] [place] [id number] [place] [address] May, [facility] [address] [facility] [place] [address] May, [facility] [address] [place] [id number] [place] [address] Dec, [facility] [address] [place] [address] [place] [address] Dec, [facility] [address] [place] [id number] [place] [address] Jun, [facility] [address] [place] [id number] [place] [address] Jun, IMMUNIZATIONS No Known Immunizations SOCIAL HISTORY Never Assessed REASON FOR VISIT PLAN OF CARE VITAL SIGNS Height 63 in 2014-01-12 Weight 192.3 lbs 2014-01-12 Temperature 98.3 degrees Fahrenheit 2014-01-12 Heart Rate 80 bpm 2014-01-12 Respiratory Rate 18 2014-01-12 Blood pressure systolic 115 mmHg 2014-01-12 Blood pressure diastolic 74 mmHg 2014-01-12 MEDICATIONS Unknown Medications RESULTS No Results PROCEDURES [...]
--- OUTSIDE RECORDS SUMMARY | 2019-11-03 06:01 | XMS REPORT ---
Author Author Ciara LOZANO Organization [facility] Address [address] [place] [address] Care Team Providers Care Outside Repairer Special Name Role Phone BLAKELEONELLAXMI Unavailable PROBLEMS Type Condition ICD9-CM Code RNT03-RB Code Onset Dates Condition S tatus SNOMED Code Problem Migraine with aura and without status migrainosu s, not intractable G43.109 Active 3974673 ALLERGIES No Information ENCOUNTERS Encounter Location Date Diagnosis [place] [address] [place] [id number] [place] [address] 07 Apr, 2019 [place] [address] [place] [id number] [place] [address] 17 Mar, [address] [address] 16 Mar, 2019 care, subsequent in f irst trimester Z34.81 [place] [address] [place] [address] 09 Mar, 2019 care, subsequent pr egnancy in first trimester Z34.81 and 9 weeks gestation of Z3A.09 [place] [address] [place] [address] 22 Feb, 2019 [place] [address] [place] [id number] [place] [address] 15 Feb, 2019 [place] [address] [place] [id number] [place] [address] Feb, [place] [address] [place] [id number] [place] [address] Jan, Encounter for vis it Z39.2 and control counseling Z30.09 [place] [address] [place] [id number] [place] [address] 08 Dec, 2017 care, subsequent pr egnancy in third trimester Z34.83 and 37 weeks gestation of Z3A.37 [place] [address] [place] [id number] [place] [address] Dec, care, subsequent pr egnancy in third trimester Z34.83 ; 36 weeks gestation of Z3A.36 and Antepartum malpresentation of fetus P01.7 [place] [address] [address] November, care, subsequent pr egnancy in third trimester Z34.83 ; 33 weeks gestation of Z3A.33 and Decreased movements in third trimester, single or unspecified fetus O36.8130 [place] [address] [place] [id number] [place] [address] Oct, care, subsequent pr egnancy in third trimester Z34.83 ; Encounter for immunization Z23 and 31 weeks gestation of Z3A.31 [place] [address] [place] [id number] [place] [address] Oct, Third trimester Z3 4.93 and 28 weeks gestation of Z3A.28 [place] [address] [place] [id number] [place] [address] Sep, care, subsequent pr egnancy in second trimester Z34.82 ; Diabetes mellitus screening Z13.1 ; 25 weeks gestation of Z3A.25 and Evaluate anatomy not seen on prior sonogram Z04.8 [place] [address] [place] [id number] [place] [address] Aug, care, subsequent pr egnancy in second trimester Z34.82 ; Second trimester Z34.92 and 20 weeks gestation of Z3A.20 [place] [address] [facility] [id number] [address] [place] [address] Jul, [place] [address] [address] Jul, Normal in multigra michael Z34.80 ; care, subsequent in second trimester Z34.82 and 15 weeks gestation of Z3A.15 [place] [address] [place] [address] May, Normal in adelinaa michael Z34.80 and 9 weeks gestation of Z3A.09 [place] [address] [place] [id number] [place] [address] Apr, [place] [address] [place] [id number] [place] [address] Apr, Encounter for test Z32.00 [place] [address] [place] [id number] [place] [address] Mar, Hirsutism L68.0 [place] [address] [place] [id number] [place] [address] Feb, Well woman exam (no gynecolo gical exam) Z00.00 ; control counseling Z30.9 ; Migraine with aura and without status migrainosus, not intractable G43.109 and Hirsutism L68.0 [place] [address] [place] [id number] [place] [address] Mar, Routine follow-up V24.2 ; anemia 648.24 and Contraception management V25.9 [place] [address] [place] [address] Jan, Supervision of normal first V22.0 [facility] [address] [id number] [address] [place] [id number] Jan, Dental examination V72.2 [place] [address] [place] [id number] [place] [address] Jan, Supervision of normal first V22.0 [place] [address] [place] [id number] [place] [address] Jan, Supervision of normal first V22.0 [facility] [address] [id number] [address] [place] [address] Dec, [facility] [address] [id number] [address] [place] [address] Dec, Supervision of normal first V22.0 [facility] [address] [id number] [address] [place] [address] Dec, [facility] [address] [id number] [address] [place] [address] Dec, Supervision of normal first V22.0 [facility] [address] [id number] [address] [place] [address] Dec, Supervision of normal first V22.0 [facility] [address] [id number] [address] [place] [address] Dec, [facility] [address] [id number] [address] [place] [address] Dec, Supervision of normal first V22.0 [facility] [address] [id number] [address] [place] [id number] November, Dental examination V72.2 [facility] [address] [facility] [id number] [address] [place] [address] November, Rubella non-immune status, a ntepartum 646.83 and Supervision of normal first V22.0 [facility] [address] [id number] [address] [place] [address] November, [facility] [address] [id number] [address] [place] [address] November, Supervision of normal first V22.0 ; Screening for diabetes mellitus V77.1 and Screening, iron deficiency anemia V78.0 [facility] [address] [id number] [address] [place] [address] Oct, [facility] [address] [id number] [facility] [place] [address] 13 Oct, 2014 [facility] [address] [id number] [address] [place] [address], [place] [address] 30 Sep, 2014 [facility] [address] [id number] [address] [place] [address], [place] [address] 13 Sep, 2014 [facility] [address] [id number] [address] [place] [address], [place] [address] Sep, [facility] [address] [id number] [address] [place] [address], [place] [address] Sep, [facility] [address] [id number] [address] [place] [address], [place] [address] Sep, [facility] [address] [id number] [address] [place] [address], [place] [address] Sep, [facility] [address] [id number] [address] [place] [address], [place] [address] Sep, [facility] [address] [id number] [address] [place] [address], [place] [address] Sep, [facility] [address] [id number] [address] [place] [address], [place] [address] Sep, [facility] [address] [id number] [address] [place] [address], [place] [address] Sep, [facility] [address] [id number] [address] [place] [address], [place] [address] Sep, [facility] [address] [id number] [address] [place] [address], [place] [address] Aug, [facility] [address] [id number] [address] [place] [address], [place] [address] Aug, [facility] [address] [id number] [address] [place] [address], [place] [address] 15 Aug, 2014 [facility] [address] [id number] [address] [place] [address], [place] [address] 12 Aug, 2014 [facility] [address] [id number] [address] [place] [address], [place] [address] Aug, [facility] [address] [id number] [address] [place] [address], [place] [address] Aug, [facility] [address] [id number] [address] [place] [address], [place] [address] 16 Jul, 2014 [facility] [address] [id number] [address] [place] [address], [place] [address] 15 Jul, 2014 [facility] [address] [id number] [address] [place] [address], [place] [address] Jul, [facility] [address] [id number] [address] [place] [address], [place] [address] Jul, [facility] [address] [id number] [address] [place] [address], [place] [address] 17 Jun, 2014 [facility] [address] [id number] [address] [place] [address], [place] [address] 16 Jun, 2014 [facility] [address] [id number] [address] [place] [address], [place] [address] 15 Jun, 2014 [facility] [address] [id number] [address] [place] [address], [place] [address] 15 Jun, 2014 [facility] [address] [id number] [address] [place] [address], [place] [address] 24 May, 2014 [facility] [address] [id number] [address] [place] [address], [place] [address] 24 May, 2014 [facility] [address] [id number] [address] [place] [address], [place] [address] 24 Dec, 2013 [facility] [address] [id number] [address] [place] [address], [place] [address] 24 Dec, 2013 [facility] [address] [id number] [address] [place] [address], [place] [address] 18 Jun, 2013 [facility] [address] [id number] [address] [place] [address] [place] [address] Jun, IMMUNIZATIONS No Known Immunizations SOCIAL HISTORY Never Assessed REASON FOR VISIT PLAN OF CARE VITAL SIGNS Height 63 in 2014-09-01 Weight 200 lbs 2014-09-01 Temperature 98 degrees Fahrenheit 2014-09-01 Blood pressure systolic 120 mmHg 2014-09-01 Blood pressure diastolic 78 mmHg 2014-09-01 MEDICATIONS Unknown Medications RESULTS No Results PROCEDURES Procedure Date Ordered Result Body Site OB US >/= 14 WKS, SNGL FETUS Sep 01, 2014 VENIPUNCT, ROUTINE* Sep 01, 2014 URINE-NO MICRO Sep 01, 2014 INSTRUCTIONS MEDICATIONS ADMINISTERED No Known Medications MEDICAL (GENERAL) HISTORY Type Description Date Medical History Migraines with aura Medical History Anemia Surgical History oral surgery to remove prima ry teeth and excise permanent teeth from roof of mouth Hospitalization History see surgeries Hospitalization History L&D 01/2015 Hospitalization History L&D 12/2017
--- OUTSIDE RECORDS SUMMARY | 2019-11-03 06:01 | XMS REPORT ---
Author Author Ciara LOZANO Organization [facility] Address [address] [place] [address] Care Team Providers Care Skull Splitter Name Role Phone BLAKE LAXMI Unavailable PROBLEMS Type Condition ICD9-CM Code LRU15-QG Code Onset Dates Condition S tatus SNOMED Code Problem Migraine with aura and without status migrainosu s, not intractable G43.109 Active 4514307 ALLERGIES No Information ENCOUNTERS Encounter Location Date Diagnosis [place] [id number] [address] [place] [address] Feb, [address] [address] Jan, Encounter for vis it Z39.2 and control counseling Z30.09 [place] [address] [address] [place] [id number] [address] [place] [address] Dec, care, subsequent pr egnancy in third trimester Z34.83 and 37 weeks gestation of Z3A.37 [place] [address] [address] [place] [id number] [address] [place] [address] Dec, care, subsequent pr egnancy in third trimester Z34.83 ; 36 weeks gestation of Z3A.36 and Antepartum malpresentation of fetus P01.7 [place] [address] [address] [place] [id number] [address] [place] [address] November, care, subsequent pr egnancy in third trimester Z34.83 ; 33 weeks gestation of Z3A.33 and Decreased movements in third trimester, single or unspecified fetus O36.8130 [place] [address] [address] [place] [id number] [address] [place] [address] Oct, care, subsequent pr egnancy in third trimester Z34.83 ; Encounter for immunization Z23 and 31 weeks gestation of Z3A.31 [place] [address] [address] [facility] [id number] [address] [place] [address] Oct, Third trimester Z3 4.93 and 28 weeks gestation of Z3A.28 [place] [address] [address] [facility] [id number] [address] [place] [address] Sep, care, subsequent pr egnancy in second trimester Z34.82 ; Diabetes mellitus screening Z13.1 ; 25 weeks gestation of Z3A.25 and Evaluate anatomy not seen on prior sonogram Z04.8 [place] [address] [address] [facility] [id number] [address] [place] [phone] 09 Aug, 2017 care, subsequent pr egnancy in second trimester Z34.82 ; Second trimester Z34.92 and 20 weeks gestation of Z3A.20 [place] [address] [address] [facility] [id number] [address] [place] [address] Jul, [place] [address] [address] [facility] [id number] [address] [place] [phone] Jul, Normal in multigra michael Z34.80 ; care, subsequent in second trimester Z34.82 and 15 weeks gestation of Z3A.15 [place] [address] [address] [facility] [id number] [address] [place] [address] May, Normal in multigra michael Z34.80 and 9 weeks gestation of Z3A.09 [place] [address] [id number] [address] [place] [address] Apr, [place] [address] [address] [facility] [id number] [address] [place] [address] Apr, Encounter for test Z32.00 [place] [address] [address] [facility] [id number] [address] [place] [phone] 09 Mar, 2016 Hirsutism L68.0 [place] [address] [address] [facility] [id number] [address] [place] [address] Feb, Well woman exam (no gynecolo gical exam) Z00.00 ; control counseling Z30.9 ; Migraine with aura and without status migrainosus, not intractable G43.109 and Hirsutism L68.0 [facility] [address] [facility] [id number] [address] [place] [address] Mar, Routine follow-up V24.2 ; anemia 648.24 and Contraception management V25.9 [facility] [address] [facility] [id number] [address] [place] [address] Jan, Supervision of normal first V22.0 [facility] [address] [facility] [id number] [address] [place] [id number] Jan, Dental examination V72.2 [facility] [address] [facility] [id number] [address] [place] [address] Jan, Supervision of normal first V22.0 [facility] [address] [facility] [id number] [address] [place] [phone] Jan, Supervision of normal first V22.0 [facility] [address] [facility] [id number] [address] [place] [address] Dec, [facility] [address] [facility] [id number] [address] [place] [phone] Dec, Supervision of normal first V22.0 [facility] [address] [facility] [id number] [address] [place] [phone] Dec, [facility] [address] [facility] [id number] [address] [place] [address] Dec, Supervision of normal first V22.0 [facility] [address] [facility] [id number] [address] [place] [address] Dec, Supervision of normal first V22.0 [facility] [address] [facility] [id number] [address] [place] [address] Dec, [facility] [address] [id number] [address] [place] [address] Dec, Supervision of normal first V22.0 [facility] [address] [id number] [address] [place] [id number] November, Dental examination V72.2 [facility] [address] [id number] [address] [place] [address] November, Rubella non-immune status, a ntepartum 646.83 and Supervision of normal first V22.0 [facility] [address] [id number] [address] [place] [address] November, [facility] [address] [id number] [address] [place] [phone] November, Supervision of normal first V22.0 ; Screening for diabetes mellitus V77.1 and Screening, iron deficiency anemia V78.0 [facility] [address] [id number] [address] [place] [phone] Oct, [facility] [address] [id number] [address] [place] [phone] Oct, [facility] [address] [id number] [address] [place] [phone] Sep, [facility] [address] [id number] [address] [place] [phone] Sep, [facility] [address] [id number] [address] [place] [phone] Sep, [facility] [address] [id number] [address] [place] [phone] Sep, [facility] [address] [id number] [address] [place] [phone] Sep, [facility] [address] [id number] [address] [place] [phone] Sep, [facility] [address] [id number] [address] [place] [address], [place] [address] 04 Sep, 2014 [facility] [address] [id number] [address] [place] [address], [place] [address] Sep, [facility] [address] [id number] [address] [place] [address], [place] [address] Sep, [facility] [address] [id number] [address] [place] [address], [place] [address] Sep, [facility] [address] [id number] [address] [place] [address], [place] [address] Sep, [facility] [address] [id number] [address] [place] [address], [place] [address] Aug, [facility] [address] [id number] [address] [place] [address], [place] [address] Aug, [facility] [address] [id number] [address] [place] [address], [place] [address] 15 Aug, 2014 [facility] [address] [id number] [address] [place] [address], [place] [address] Aug, [facility] [address] [id number] [address] [place] [address], [place] [address] Aug, [facility] [address] [id number] [address] [place] [address], [place] [address] Aug, [facility] [address] [id number] [address] [place] [address], [place] [address] Jul, [facility] [address] [id number] [address] [place] [address], [place] [address] Jul, [facility] [address] [id number] [address] [place] [address], [place] [address] Jul, [facility] [address] [id number] [address] [place] [address], [place] [address] Jul, [facility] [address] [id number] [address] [place] [address], [place] [address] Jun, [facility] [address] [id number] [address] [place] [phone] Jun, [facility] [address] [id number] [address] [place] [phone] Jun, [facility] [address] [id number] [address] [place] [phone] Jun, [facility] [address] [id number] [address] [place] [phone] May, [facility] [address] [id number] [address] [place] [phone] May, [facility] [address] [id number] [address] [place] [phone] Dec, [facility] [address] [id number] [address] [place] [address] Dec, [facility] [address] [id number] [address] [place] [address] Jun, [facility] [address] [id number] [address] [place] [address] Jun, IMMUNIZATIONS No Known Immunizations SOCIAL HISTORY Never Assessed REASON FOR VISIT PLAN OF CARE VITAL SIGNS MEDICATIONS Unknown Medications RESULTS No Results PROCEDURES Procedure Date Ordered Result Body Site OB US >/= 14 WKS, SNGL FETUS September 22, 2014 INSTRUCTIONS MEDICATIONS ADMINISTERED No Known Medications MEDICAL (GENERAL) HISTORY Type Description Date Medical History Migraines with aura Surgical History oral surgery to remove prima ry teeth and excise permanent teeth from roof of mouth Hospitalization History see surgeries
--- OUTSIDE RECORDS SUMMARY | 2019-11-03 06:01 | XMS REPORT ---
Author Author Ciara LOZANO Organization [facility] Address [address] [place] [address] Care Team Providers Care Inset Cutter Name Role Phone BLAKE LAXMI Unavailable PROBLEMS Type Condition ICD9-CM Code GZB42-RC Code Onset Dates Condition S tatus SNOMED Code Problem Migraine with aura and without status migrainosu s, not intractable G43.109 Active 6352190 ALLERGIES No Information ENCOUNTERS Encounter Location Date Diagnosis [place] [id number] [address] [place] [phone] Feb, [address] [address] Jan, Encounter for vis it Z39.2 and control counseling Z30.09 [place] [address] [address] [place] [id number] [address] [place] [address] Dec, care, subsequent pr egnancy in third trimester Z34.83 and 37 weeks gestation of Z3A.37 [place] [address] [address] [place] [id number] [address] [place] [address] Dec, care, subsequent pr egnancy in third trimester Z34.83 ; 36 weeks gestation of Z3A.36 and Antepartum malpresentation of fetus P01.7 [place] [address] [address] [place] [id number] [address] [place] [address] November, care, subsequent pr egnancy in third trimester Z34.83 ; 33 weeks gestation of Z3A.33 and Decreased movements in third trimester, single or unspecified fetus O36.8130 [place] [address] [address] [place] [id number] [address] [place] [address] Oct, care, subsequent pr egnancy in third trimester Z34.83 ; Encounter for immunization Z23 and 31 weeks gestation of Z3A.31 [place] [address] [facility] [id number] [address] [place] [address] Oct, Third trimester Z3 4.93 and 28 weeks gestation of Z3A.28 [place] [address] [facility] [id number] [address] [place] [address] Sep, care, subsequent pr egnancy in second trimester Z34.82 ; Diabetes mellitus screening Z13.1 ; 25 weeks gestation of Z3A.25 and Evaluate anatomy not seen on prior sonogram Z04.8 [place] [address] [facility] [id number] [address] [place] [address] 09 Aug, 2017 care, subsequent pr egnancy in second trimester Z34.82 ; Second trimester Z34.92 and 20 weeks gestation of Z3A.20 [place] [address] [facility] [id number] [address] [place] [address] Jul, [place] [address] [facility] [id number] [address] [place] [address] Jul, Normal in multigra michael Z34.80 ; care, subsequent in second trimester Z34.82 and 15 weeks gestation of Z3A.15 [place] [address] [facility] [id number] [address] [place] [address] May, Normal in multigra michael Z34.80 and 9 weeks gestation of Z3A.09 [place] [address] [id number] [address] [place] [address] Apr, [place] [address] [facility] [id number] [address] [place] [address] Apr, Encounter for test Z32.00 [place] [address] [facility] [id number] [address] [place] [phone] 09 Mar, 2016 Hirsutism L68.[address] [place] [address] [facility] [id number] [address] [place] [address] Feb, Well woman exam (no gynecolo gical exam) Z00.00 ; control counseling Z30.9 ; Migraine with aura and without status migrainosus, not intractable G43.109 and Hirsutism L68.0 [facility] [address] [facility] [id number] [address] [place] [phone] Mar, Routine follow-up V24.2 ; anemia 648.24 and Contraception management V25.9 [facility] [address] [facility] [id number] [address] [place] [address] Jan, Supervision of normal first V22.0 [facility] [address] [facility] [id number] [address] [place] [place] [id number] Jan, Dental examination V72.2 [facility] [address] [facility] [id number] [address] [place] [address] Jan, Supervision of normal first V22.0 [facility] [address] [facility] [id number] [address] [place] [address] Jan, Supervision of normal first V22.0 [facility] [address] [facility] [id number] [address] [place] [address] Dec, [facility] [address] [facility] [id number] [address] [place] [address] Dec, Supervision of normal first V22.0 [facility] [address] [facility] [id number] [address] [place] [address] Dec, [facility] [address] [facility] [id number] [address] [place] [address] Dec, Supervision of normal first V22.0 [facility] [address] [facility] [id number] [address] [place] [address] Dec, Supervision of normal first V22.0 [facility] [address] [facility] [id number] [address] [place] [phone] Dec, [facility] [address] [id number] [address] [place] [address] Dec, Supervision of normal first V22.0 [facility] [address] [id number] [address] [place] [place] [id number] November, Dental examination V72.2 [facility] [address] [id number] [address] [place] [address] November, Rubella non-immune status, a ntepartum 646.83 and Supervision of normal first V22.0 [facility] [address] [id number] [address] [place] [address] November, [facility] [address] [id number] [address] [place] [address] November, Supervision of normal first V22.0 ; Screening for diabetes mellitus V77.1 and Screening, iron deficiency anemia V78.0 [facility] [address] [id number] [address] [place] [phone] Oct, [facility] [address] [id number] [address] [place] [address] Oct, [facility] [address] [id number] [address] [place] [address] Sep, [facility] [address] [id number] [address] [place] [phone] Sep, [facility] [address] [id number] [address] [place] [address] Sep, [facility] [address] [id number] [address] [place] [address] Sep, [facility] [address] [id number] [address] [place] [address] Sep, [facility] [address] [id number] [address] [place] [phone] Sep, [facility] [address] [id number] [address] [place] [address], [place] [address] 04 Sep, 2014 [facility] [address] [id number] [address] [place] [address], [place] [address] Sep, [facility] [address] [id number] [address] [place] [address], [place] [address] Sep, [facility] [address] [id number] [address] [place] [address], [place] [address] Sep, [facility] [address] [id number] [address] [place] [address], [place] [address] Sep, [facility] [address] [id number] [address] [place] [address], [place] [address] Aug, [facility] [address] [id number] [address] [place] [address], [place] [address] Aug, [facility] [address] [id number] [address] [place] [address], [place] [address] 15 Aug, 2014 [facility] [address] [id number] [address] [place] [address], [place] [address] Aug, [facility] [address] [id number] [address] [place] [address], [place] [address] Aug, [facility] [address] [id number] [address] [place] [address], [place] [address] Aug, [facility] [address] [id number] [address] [place] [address], [place] [address] Jul, [facility] [address] [id number] [address] [place] [address], [place] [address] Jul, [facility] [address] [id number] [address] [place] [address], [place] [address] Jul, [facility] [address] [id number] [address] [place] [address], [place] [address] Jul, [facility] [address] [id number] [address] [place] [address], [place] [address] Jun, [facility] [address] [id number] [address] [place] [phone] 16 Jun, 2014 [facility] [address] [id number] [address] [place] [address] Jun, [facility] [address] [id number] [address] [place] [address] Jun, [facility] [address] [id number] [address] [place] [phone] May, [facility] [address] [id number] [address] [place] [address] May, [facility] [address] [id number] [address] [place] [address] Dec, [facility] [address] [id number] [address] [place] [address] Dec, [facility] [address] [id number] [address] [place] [phone] Jun, [facility] [address] [id number] [address] [place] [phone] Jun, IMMUNIZATIONS No Known Immunizations SOCIAL HISTORY Never Assessed REASON FOR VISIT PLAN OF CARE VITAL SIGNS Height 63 in 2014-09-29 Weight 201.4 lbs 2014-09-29 Temperature 97.9 degrees Fahrenheit 2014-09-29 Heart Rate 78 bpm 2014-09-29 Respiratory Rate 18 2014-09-29 Blood pressure systolic 115 mmHg 2014-09-29 Blood pressure diastolic 64 mmHg 2014-09-29 MEDICATIONS Unknown Medications RESULTS No Results PROCEDURES Procedure Date Ordered Result Body Site URINE-NO MICRO September 29, 2014 INSTRUCTIONS MEDICATIONS ADMINISTERED No Known Medications MEDICAL (GENERAL) HISTORY Type Description Date Medical History Migraines with aura Surgical History oral surgery to remove prima ry teeth and excise permanent teeth from roof of mouth Hospitalization History see surgeries
--- OUTSIDE RECORDS SUMMARY | 2019-11-03 06:02 | XMS REPORT ---
Author Author Ciara Rea Doctor Organization [facility] Address Unknown Phone Unavailable Care Team Providers Care Senior Project Architect Name Role Phone Migration, Doctor Unavailable Unavailable PROBLEMS Type Condition ICD9-CM Code LUZ63-TS Code Onset Dates Condition S tatus SNOMED Code Problem Migraine with aura and without status migrainosu s, not intractable G43.109 Active [id number] ALLERGIES No Information ENCOUNTERS Encounter Location Date Diagnosis [address] [address] Feb, [address] [address] Jan, Encounter for vis it Z39.2 and control counseling Z30.[address] [address] Dec, care, subsequent pr egnancy in third trimester Z34.83 and 37 weeks gestation of Z3A.37 [place] [id number] [address] [place] [address] Dec, care, subsequent pr egnancy in third trimester Z34.83 ; 36 weeks gestation of Z3A.36 and Antepartum malpresentation of fetus P01.7 [place] [id number] [address] [place] [address] November, care, subsequent pr egnancy in third trimester Z34.83 ; 33 weeks gestation of Z3A.33 and Decreased movements in third trimester, single or unspecified fetus O36.8130 [place] [address] [address] [place] [id number] [address] [place] [address] Oct, care, subsequent pr egnancy in third trimester Z34.83 ; Encounter for immunization Z23 and 31 weeks gestation of Z3A.31 [place] [address] [address] [facility] [id number] [address] [place] [address] Oct, Third trimester Z3 4.93 and 28 weeks gestation of Z3A.28 [place] [address] [address] [place] [id number] [address] [place] [phone] 16 Sep, 2017 care, subsequent pr egnancy in second trimester Z34.82 ; Diabetes mellitus screening Z13.1 ; 25 weeks gestation of Z3A.25 and Evaluate anatomy not seen on prior sonogram Z04.8 [place] [address] [address] [facility] [id number] [address] [place] [phone] 09 Aug, 2017 care, subsequent pr egnancy in second trimester Z34.82 ; Second trimester Z34.92 and 20 weeks gestation of Z3A.20 [place] [address] [address] [place] [id number] [address] [place] [address] Jul, [place] [address] [address] Jul, Normal in multigra michael Z34.80 ; care, subsequent in second trimester Z34.82 and 15 weeks gestation of Z3A.15 [place] [address] [address] [place] [id number] [address] [place] [address] May, Normal in multigra michael Z34.80 and 9 weeks gestation of Z3A.09 [place] [address] [address] [place] [id number] [address] [place] [address] Apr, [place] [address] [address] [place] [id number] [address] [place] [address] Apr, Encounter for test Z32.00 [place] [address] [address] [place] [id number] [address] [place] [address] Mar, Hirsutism L68.0 [place] [address] [address] [place] [id number] [address] [place] [phone] Feb, Well woman exam (no gynecolo gical exam) Z00.00 ; control counseling Z30.9 ; Migraine with aura and without status migrainosus, not intractable G43.109 and Hirsutism L68.0 [facility] [place] [address] [id number] [address] [place] [address] 02 Mar, 2015 Routine follow-up V24.2 ; anemia 648.24 and Contraception management V25.9 [facility] [place] [address] [facility] [id number] [address] [place] [address] Jan, Supervision of normal first V22.0 [facility] [address] [id number] [address] [place] [id number] Jan, Dental examination V72.2 [facility] [place] [address] [facility] [id number] [address] [place] [phone] Jan, Supervision of normal first V22.0 [facility] [place] [address] [facility] [id number] [address] [place] [address] Jan, Supervision of normal first V22.0 [facility] [place] [address] [id number] [address] [place] [address] Dec, [facility] [place] [address] [id number] [address] [place] [phone] Dec, Supervision of normal first V22.0 [facility] [place] [address] [id number] [address] [place] [phone] Dec, [facility] [place] [address] [facility] [id number] [address] [place] [phone] Dec, Supervision of normal first V22.0 [facility] [place] [address] [id number] [address] [place] [address] Dec, Supervision of normal first V22.0 [facility] [place] [address] [id number] [address] [place] [phone] Dec, [facility] [place] [address] [facility] [id number] [address] [place] [phone] Dec, Supervision of normal first V22.0 [facility] [address] [id number] [address] [place] [id number] November, Dental examination V72.2 [facility], [place] [address] [id number] [address] [place] [address] November, Rubella non-immune status, a ntepartum 646.83 and Supervision of normal first V22.0 [facility] [place] [address] [id number] [address] [place] [address] November, [facility] [place] [address] [id number] [address] [place] [phone] November, Supervision of normal first V22.0 ; Screening for diabetes mellitus V77.1 and Screening, iron deficiency anemia V78.0 [facility] [place] [address] [id number] [address] [place] [phone] 14 Oct, 2014 [facility] [place] [address] [id number] [address] [place] [phone] Oct, [facility] [place] [address] [id number] [address] [place] [address] Sep, [facility] [place] [address] [id number] [address] [place] [address] Sep, [facility] [place] [address] [id number] [address] [place] [phone] Sep, [facility] [place] [address] [id number] [address] [place] [address] Sep, [facility] [place] [address] [id number] [address] [place] [phone] Sep, [facility] [place] [address] [id number] [address] [place] [phone] Sep, [facility] [place] [address] [id number] [address] [place] [phone] Sep, [facility] [address] [id number] [address] [place] [address], [place] [address] Sep, [facility] [address] [id number] [address] [place] [address], [place] [address] Sep, [facility] [address] [id number] [address] [place] [address], [place] [address] Sep, [facility] [address] [id number] [address] [place] [address], [place] [address] Sep, [facility] [address] [id number] [address] [place] [address], [place] [address] Aug, [facility] [address] [id number] [address] [place] [address], [place] [address] Aug, [facility] [address] [id number] [address] [place] [address], [place] [address] Aug, [facility] [address] [id number] [address] [place] [address], [place] [address] Aug, [facility] [address] [id number] [address] [place] [address], [place] [address] Aug, [facility] [address] [id number] [address] [place] [address], [place] [address] Aug, [facility] [address] [id number] [address] [place] [address], [place] [address] Jul, [facility] [address] [id number] [address] [place] [address], [place] [address] Jul, [facility] [address] [id number] [address] [place] [address], [place] [address] Jul, [facility] [address] [id number] [address] [place] [address], [place] [address] Jul, [facility] [address] [id number] [address] [place] [address], [place] [address] Jun, [facility] [address] [id number] [address] [place] [address] [address] Jun, [facility] [place] [address] [id number] [address] [place] [phone] Jun, [facility] [place] [address] [id number] [address] [place] [phone] Jun, [facility] [place] [address] [id number] [address] [place] [phone] May, [facility] [place] [address] [id number] [address] [place] [phone] May, [facility] [place] [address] [id number] [address] [place] [phone] Dec, [facility] [place] [address] [id number] [address] [place] [phone] Dec, [facility] [place] [address] [id number] [address] [place] [phone] Jun, [facility] [place] [address] [id number] [address] [place] [phone] Jun, IMMUNIZATIONS No Known Immunizations SOCIAL HISTORY Never Assessed REASON FOR VISIT EMR-[facility] PLAN OF CARE VITAL SIGNS MEDICATIONS Medication Instructions Dosage Frequency Start Date End Date Duration S tatus Azithromycin 250 mg 2 Tablet by Oral rou te on day 1 then take 1 daily for 4 days Jun, Active PredniSONE 10 mg 1 Tablet by Oral rou te 2 times per day for 5 days Take at 8 am and noon. Jun, Active Calcium 500 + D by oral route Jun, Active RESULTS No Results PROCEDURES No Known procedures INSTRUCTIONS MEDICATIONS ADMINISTERED No Known Medications MEDICAL (GENERAL) HISTORY Type Description Date Medical History Migraines with aura Surgical History oral surgery to remove prima ry teeth and excise permanent teeth from roof of mouth Hospitalization History see surgeries
--- OUTSIDE RECORDS SUMMARY | 2019-11-03 06:02 | XMS REPORT ---
Author Author Ciara Rea Doctor Organization [facility] Address Unknown Phone Unavailable Care Team Providers Care Plate Hanger Name Role Phone Migration, Doctor Unavailable Unavailable PROBLEMS Type Condition ICD9-CM Code AIC27-PA Code Onset Dates Condition S tatus SNOMED Code Problem Migraine with aura and without status migrainosu s, not intractable G43.109 Active [id number] ALLERGIES No Information ENCOUNTERS Encounter Location Date Diagnosis [address] [id number] Feb, [address] [address] Jan, Encounter for vis it Z39.2 and control counseling Z30.[address] [address] Dec, care, subsequent pr egnancy in third trimester Z34.83 and 37 weeks gestation of Z3A.37 [place] [id number] [address] [place] [address] Dec, care, subsequent pr egnancy in third trimester Z34.83 ; 36 weeks gestation of Z3A.36 and Antepartum malpresentation of fetus P01.7 [place] [id number] [address] [place] [address] November, care, subsequent pr egnancy in third trimester Z34.83 ; 33 weeks gestation of Z3A.33 and Decreased movements in third trimester, single or unspecified fetus O36.8130 [place] [address] [address] [place] [id number] [address] [place] [address] Oct, care, subsequent pr egnancy in third trimester Z34.83 ; Encounter for immunization Z23 and 31 weeks gestation of Z3A.31 [place] [address] [address] [facility] [id number] [address] [place] [address] Oct, Third trimester Z3 4.93 and 28 weeks gestation of Z3A.28 [place] [address] [address] [place] [id number] [address] [place] [address] 16 Sep, 2017 care, subsequent pr egnancy in second trimester Z34.82 ; Diabetes mellitus screening Z13.1 ; 25 weeks gestation of Z3A.25 and Evaluate anatomy not seen on prior sonogram Z04.8 [place] [address] [address] [facility] [id number] [address] [place] [phone] 09 Aug, 2017 care, subsequent pr egnancy in second trimester Z34.82 ; Second trimester Z34.92 and 20 weeks gestation of Z3A.20 [place] [address] [address] [place] [id number] [address] [place] [address] Jul, [place] [address] [address] Jul, Normal in multigra michael Z34.80 ; care, subsequent in second trimester Z34.82 and 15 weeks gestation of Z3A.15 [place] [address] [address] [place] [id number] [address] [place] [address] May, Normal in multigra michael Z34.80 and 9 weeks gestation of Z3A.09 [place] [address] [address] [place] [id number] [address] [place] [address] Apr, [place] [address] [address] [place] [id number] [address] [place] [address] Apr, Encounter for test Z32.00 [place] [address] [address] [place] [id number] [address] [place] [address] Mar, Hirsutism L68.0 [place] [address] [address] [place] [id number] [address] [place] [address] Feb, Well woman exam (no gynecolo gical exam) Z00.00 ; control counseling Z30.9 ; Migraine with aura and without status migrainosus, not intractable G43.109 and Hirsutism L68.0 [facility] [address] [id number] [address] [place] [phone] 02 Mar, 2015 Routine follow-up V24.2 ; anemia 648.24 and Contraception management V25.9 [facility] [address] [facility] [id number] [address] [place] [address] Jan, Supervision of normal first V22.0 [facility] [address] [id number] [address] [place] [id number] Jan, Dental examination V72.2 [facility] [address] [facility] [id number] [address] [place] [address] Jan, Supervision of normal first V22.0 [facility] [address] [facility] [id number] [address] [place] [phone] Jan, Supervision of normal first V22.0 [facility] [address] [id number] [address] [place] [address] Dec, [facility] [address] [id number] [address] [place] [phone] Dec, Supervision of normal first V22.0 [facility] [address] [id number] [address] [place] [phone] Dec, [facility] [address] [facility] [id number] [address] [place] [phone] Dec, Supervision of normal first V22.0 [facility] [address] [id number] [address] [place] [phone] Dec, Supervision of normal first V22.0 [facility] [address] [id number] [address] [place] [address] Dec, [facility] [address] [facility] [id number] [address] [place] [phone] Dec, Supervision of normal first V22.0 [facility] [address] [id number] [address] [place] [id number] November, Dental examination V72.2 [facility] [address] [id number] [address] [place] [address] November, Rubella non-immune status, a ntepartum 646.83 and Supervision of normal first V22.0 [facility] [address] [id number] [address] [place] [address] November, [facility] [address] [id number] [address] [place] [phone] November, Supervision of normal first V22.0 ; Screening for diabetes mellitus V77.1 and Screening, iron deficiency anemia V78.0 [facility] [address] [id number] [address] [place] [address] 14 Oct, 2014 [facility] [address] [id number] [address] [place] [address] Oct, [facility] [address] [id number] [address] [place] [address] Sep, [facility] [address] [id number] [address] [place] [phone] Sep, [facility] [address] [id number] [address] [place] [phone] Sep, [facility] [address] [id number] [address] [place] [phone] Sep, [facility] [address] [id number] [address] [place] [phone] Sep, [facility] [address] [id number] [address] [place] [phone] Sep, [facility] [address] [id number] [address] [place] [phone] Sep, [facility] [address] [id number] [address] [place] [address], [place] [address] Sep, [facility] [address] [id number] [address] [place] [address], [place] [address] Sep, [facility] [address] [id number] [address] [place] [address], [place] [address] Sep, [facility] [address] [id number] [address] [place] [address], [place] [address] Sep, [facility] [address] [id number] [address] [place] [address], [place] [address] Aug, [facility] [address] [id number] [address] [place] [address], [place] [address] Aug, [facility] [address] [id number] [address] [place] [address], [place] [address] Aug, [facility] [address] [id number] [address] [place] [address], [place] [address] Aug, [facility] [address] [id number] [address] [place] [address], [place] [address] Aug, [facility] [address] [id number] [address] [place] [address], [place] [address] Aug, [facility] [address] [id number] [address] [place] [address], [place] [address] Jul, [facility] [address] [id number] [address] [place] [address], [place] [address] Jul, [facility] [address] [id number] [address] [place] [address], [place] [address] Jul, [facility] [address] [id number] [address] [place] [address], [place] [address] Jul, [facility] [address] [id number] [address] [place] [address], [place] [address] Jun, [facility] [address] [id number] [address] [place] [address] [address] Jun, [facility] [address] [id number] [address] [place] [phone] Jun, [facility] [address] [id number] [address] [place] [phone] Jun, [facility] [address] [id number] [address] [place] [phone] May, [facility] [address] [id number] [address] [place] [phone] May, [facility] [address] [id number] [address] [place] [phone] Dec, [facility] [address] [id number] [address] [place] [phone] Dec, [facility] [address] [id number] [address] [place] [phone] Jun, [facility] [address] [id number] [address] [place] [phone] Jun, IMMUNIZATIONS No Known Immunizations SOCIAL HISTORY Never Assessed REASON FOR VISIT EMR-[facility] PLAN OF CARE VITAL SIGNS MEDICATIONS Unknown Medications RESULTS No Results PROCEDURES No Known procedures INSTRUCTIONS MEDICATIONS ADMINISTERED No Known Medications MEDICAL (GENERAL) HISTORY Type Description Date Medical History Migraines with aura Surgical History oral surgery to remove prima ry teeth and excise permanent teeth from roof of mouth Hospitalization History see surgeries
--- OUTSIDE RECORDS SUMMARY | 2019-11-03 06:02 | XMS REPORT ---
Author Author Ciara LOZANO Organization [facility] Address [address] [place] [address] Care Team Providers Care Steel Heater Name Role Phone BLAKE LAXMI Unavailable PROBLEMS Type Condition ICD9-CM Code XLQ09-FP Code Onset Dates Condition S tatus SNOMED Code Problem Migraine with aura and without status migrainosu s, not intractable G43.109 Active 3430290 ALLERGIES No Information ENCOUNTERS Encounter Location Date Diagnosis [place] [id number] [address] [place] [address] Feb, [address] [address] Jan, Encounter for vis it Z39.2 and control counseling Z30.09 [place] [address] [address] [place] [id number] [address] [place] [address] Dec, care, subsequent pr egnancy in third trimester Z34.83 and 37 weeks gestation of Z3A.37 [place] [address] [address] [place] [id number] [address] [place] [address] Dec, care, subsequent pr egnancy in third trimester Z34.83 ; 36 weeks gestation of Z3A.36 and Antepartum malpresentation of fetus P01.7 [place] [address] [place] [id number] [address] [place] [address] November, care, subsequent pr egnancy in third trimester Z34.83 ; 33 weeks gestation of Z3A.33 and Decreased movements in third trimester, single or unspecified fetus O36.8130 [place] [address] [address] [place] [id number] [address] [place] [address] Oct, care, subsequent pr egnancy in third trimester Z34.83 ; Encounter for immunization Z23 and 31 weeks gestation of Z3A.31 [place] [address] [facility] [id number] [address] [place] [address] Oct, Third trimester Z3 4.93 and 28 weeks gestation of Z3A.28 [place] [address] [address] [facility] [id number] [address] [place] [address] Sep, care, subsequent pr egnancy in second trimester Z34.82 ; Diabetes mellitus screening Z13.1 ; 25 weeks gestation of Z3A.25 and Evaluate anatomy not seen on prior sonogram Z04.8 [place] [address] [facility] [id number] [address] [place] [address] 09 Aug, 2017 care, subsequent pr egnancy in second trimester Z34.82 ; Second trimester Z34.92 and 20 weeks gestation of Z3A.20 [place] [address] [facility] [id number] [address] [place] [address] Jul, [place] [address] [facility] [id number] [address] [place] [phone] Jul, Normal in multigra michael Z34.80 ; care, subsequent in second trimester Z34.82 and 15 weeks gestation of Z3A.15 [place] [address] [facility] [id number] [address] [place] [address] May, Normal in multigra michael Z34.80 and 9 weeks gestation of Z3A.09 [place] [address] [id number] [address] [place] [address] Apr, [place] [address] [facility] [id number] [address] [place] [address] Apr, Encounter for test Z32.00 [place] [address] [facility] [id number] [address] [place] [address] 09 Mar, 2016 Hirsutism L68.0 [place] [address] [facility] [id number] [address] [place] [address] Feb, Well woman exam (no gynecolo gical exam) Z00.00 ; control counseling Z30.9 ; Migraine with aura and without status migrainosus, not intractable G43.109 and Hirsutism L68.0 [facility] [address] [facility] [id number] [address] [place] [address] Mar, Routine follow-up V24.2 ; anemia 648.24 and Contraception management V25.9 [facility] [address] [facility] [id number] [address] [place] [address] Jan, Supervision of normal first V22.0 [facility] [address] [facility] [id number] [address] [place] [id number] Jan, Dental examination V72.2 [facility] [address] [facility] [id number] [address] [place] [address] Jan, Supervision of normal first V22.0 [facility] [address] [facility] [id number] [address] [place] [address] Jan, Supervision of normal first V22.0 [facility] [address] [facility] [id number] [address] [place] [phone] Dec, [facility] [address] [facility] [id number] [address] [place] [address] Dec, Supervision of normal first V22.0 [facility] [address] [facility] [id number] [address] [place] [address] Dec, [facility] [address] [facility] [id number] [address] [place] [address] Dec, Supervision of normal first V22.0 [facility] [address] [facility] [id number] [address] [place] [address] Dec, Supervision of normal first V22.0 [facility] [address] [facility] [id number] [address] [place] [address] Dec, [facility] [address] [id number] [address] [place] [address] Dec, Supervision of normal first V22.0 [facility] [address] [id number] [address] [place] [id number] November, Dental examination V72.2 [facility] [address] [id number] [address] [place] [address] November, Rubella non-immune status, a ntepartum 646.83 and Supervision of normal first V22.0 [facility] [address] [id number] [address] [place] [address] November, [facility] [address] [id number] [address] [place] [address] November, Supervision of normal first V22.0 ; Screening for diabetes mellitus V77.1 and Screening, iron deficiency anemia V78.0 [facility] [address] [id number] [address] [place] [phone] Oct, [facility] [address] [id number] [address] [place] [address] Oct, [facility] [address] [id number] [address] [place] [address] Sep, [facility] [address] [id number] [address] [place] [phone] Sep, [facility] [address] [id number] [address] [place] [phone] Sep, [facility] [address] [id number] [address] [place] [phone] Sep, [facility] [address] [id number] [address] [place] [address] Sep, [facility] [address] [id number] [address] [place] [address] Sep, [facility] [address] [id number] [address] [place] [address], [place] [address] 04 Sep, 2014 [facility] [address] [id number] [address] [place] [address], [place] [address] Sep, [facility] [address] [id number] [address] [place] [address], [place] [address] Sep, [facility] [address] [id number] [address] [place] [address], [place] [address] Sep, [facility] [address] [id number] [address] [place] [address], [place] [address] Sep, [facility] [address] [id number] [address] [place] [address], [place] [address] Aug, [facility] [address] [id number] [address] [place] [address], [place] [address] Aug, [facility] [address] [id number] [address] [place] [address], [place] [address] 15 Aug, 2014 [facility] [address] [id number] [address] [place] [address], [place] [address] Aug, [facility] [address] [id number] [address] [place] [address], [place] [address] Aug, [facility] [address] [id number] [address] [place] [address], [place] [address] Aug, [facility] [address] [id number] [address] [place] [address], [place] [address] Jul, [facility] [address] [id number] [address] [place] [address], [place] [address] Jul, [facility] [address] [id number] [address] [place] [address], [place] [address] Jul, [facility] [address] [id number] [address] [place] [address], [place] [address] Jul, [facility] [address] [id number] [address] [place] [address], [place] [address] Jun, [facility] [address] [id number] [address] [place] [address] Jun, [facility] [address] [id number] [address] [place] [phone] Jun, [facility] [address] [id number] [address] [place] [address] Jun, [facility] [address] [id number] [address] [place] [address] May, [facility] [address] [id number] [address] [place] [address] May, [facility] [address] [id number] [address] [place] [address] Dec, [facility] [address] [id number] [address] [place] [address] Dec, [facility] [address] [id number] [address] [place] [address] Jun, [facility] [address] [id number] [address] [place] [phone] Jun, IMMUNIZATIONS No Known Immunizations SOCIAL HISTORY Never Assessed REASON FOR VISIT OB 2wk f/u -- tara conley PLAN OF CARE Activity Details Follow Up 2 Weeks, 2 Weeks, 2 Weeks, 2 Weeks Reason: VITAL SIGNS Height 63 in 2017-11-29 Weight 210.0 lbs 2017-11-29 Temperature 98.0 degrees Fahrenheit 2017-11-29 BMI 37.2 kg/m2 2017-11-29 Blood pressure systolic 118 mmHg 2017-11-29 Blood pressure diastolic 74 mmHg 2017-11-29 MEDICATIONS Medication Instructions Dosage Frequency Start Date End Date Duration S tatus Loratadine 10 MG Orally Once a day 1 tablet 24h Active Iron 325 (65 Fe) MG Orally Once a day 1 tablet 24h Active Vitamin 27-0.8 MG Active RESULTS Name Result Date Reference Range UA OB DIP (IN HOUSE) 2017-11-29 Glucose negative Protein trace PROCEDURES Procedure Date Ordered Result Body Site NON-STRESS TEST 2017-11-29 N/A URINE-NO MICRO November 29, 2017 NON-STRESS TEST November 29, 2017 INSTRUCTIONS MEDICATIONS ADMINISTERED No Known Medications MEDICAL (GENERAL) HISTORY Type Description Date Medical History Migraines with aura Surgical History oral surgery to remove prima ry teeth and excise permanent teeth from roof of mouth Hospitalization History see surgeries
--- OUTSIDE RECORDS SUMMARY | 2019-11-03 06:02 | XMS REPORT ---
Author Author Ciara LOZANO Organization [facility] Address [address] [place] [address] Care Team Providers Care Shingles Roofer Helper Name Role Phone BLAKE LAXMI Unavailable PROBLEMS Type Condition ICD9-CM Code HRA67-IC Code Onset Dates Condition S tatus SNOMED Code Problem Migraine with aura and without status migrainosu s, not intractable G43.109 Active 4443510 ALLERGIES No Information ENCOUNTERS Encounter Location Date Diagnosis [place] [id number] [address] [place] [address] Feb, [address] [address] Jan, Encounter for vis it Z39.2 and control counseling Z30.09 [place] [address] [address] [place] [id number] [address] [place] [address] Dec, care, subsequent pr egnancy in third trimester Z34.83 and 37 weeks gestation of Z3A.37 [place] [address] [address] [place] [id number] [address] [place] [address] Dec, care, subsequent pr egnancy in third trimester Z34.83 ; 36 weeks gestation of Z3A.36 and Antepartum malpresentation of fetus P01.7 [place] [address] [address] [place] [id number] [address] [place] [address] November, care, subsequent pr egnancy in third trimester Z34.83 ; 33 weeks gestation of Z3A.33 and Decreased movements in third trimester, single or unspecified fetus O36.8130 [place] [address] [address] [place] [id number] [address] [place] [address] Oct, care, subsequent pr egnancy in third trimester Z34.83 ; Encounter for immunization Z23 and 31 weeks gestation of Z3A.31 [place] [address] [facility] [id number] [address] [place] [address] Oct, Third trimester Z3 4.93 and 28 weeks gestation of Z3A.28 [place] [address] [address] [facility] [id number] [address] [place] [address] Sep, care, subsequent pr egnancy in second trimester Z34.82 ; Diabetes mellitus screening Z13.1 ; 25 weeks gestation of Z3A.25 and Evaluate anatomy not seen on prior sonogram Z04.8 [place] [address] [facility] [id number] [address] [place] [address] 09 Aug, 2017 care, subsequent pr egnancy in second trimester Z34.82 ; Second trimester Z34.92 and 20 weeks gestation of Z3A.20 [place] [address] [facility] [id number] [address] [place] [address] Jul, [place] [address] [facility] [id number] [address] [place] [address] Jul, Normal in multigra michael Z34.80 ; care, subsequent in second trimester Z34.82 and 15 weeks gestation of Z3A.15 [place] [address] [facility] [id number] [address] [place] [address] May, Normal in multigra michael Z34.80 and 9 weeks gestation of Z3A.09 [place] [address] [id number] [address] [place] [address] Apr, [place] [address] [facility] [id number] [address] [place] [address] Apr, Encounter for test Z32.00 [place] [address] [facility] [id number] [address] [place] [address] 09 Mar, 2016 Hirsutism L68.0 [place] [address] [facility] [id number] [address] [place] [address] Feb, Well woman exam (no gynecolo gical exam) Z00.00 ; control counseling Z30.9 ; Migraine with aura and without status migrainosus, not intractable G43.109 and Hirsutism L68.0 [facility] [address] [facility] [id number] [address] [place] [address] Mar, Routine follow-up V24.2 ; anemia 648.24 and Contraception management V25.9 [facility] [address] [facility] [id number] [address] [place] [address] Jan, Supervision of normal first V22.0 [facility] [address] [facility] [id number] [address] [place] [id number] Jan, Dental examination V72.2 [facility] [address] [facility] [id number] [address] [place] [address] Jan, Supervision of normal first V22.0 [facility] [address] [facility] [id number] [address] [place] [address] Jan, Supervision of normal first V22.0 [facility] [address] [facility] [id number] [address] [place] [address] Dec, [facility] [address] [facility] [id number] [address] [place] [address] Dec, Supervision of normal first V22.0 [facility] [address] [facility] [id number] [address] [place] [address] Dec, [facility] [address] [facility] [id number] [address] [place] [address] Dec, Supervision of normal first V22.0 [facility] [address] [facility] [id number] [address] [place] [address] Dec, Supervision of normal first V22.0 [facility] [address] [facility] [id number] [address] [place] [address] Dec, [facility] [address] [id number] [address] [place] [address] Dec, Supervision of normal first V22.0 [facility] [address] [id number] [address] [place] [id number] November, Dental examination V72.2 [facility] [address] [id number] [address] [place] [address] November, Rubella non-immune status, a ntepartum 646.83 and Supervision of normal first V22.0 [facility] [address] [id number] [address] [place] [address] November, [facility] [address] [id number] [address] [place] [address] November, Supervision of normal first V22.0 ; Screening for diabetes mellitus V77.1 and Screening, iron deficiency anemia V78.0 [facility] [address] [id number] [address] [place] [phone] Oct, [facility] [address] [id number] [address] [place] [address] Oct, [facility] [address] [id number] [address] [place] [address] Sep, [facility] [address] [id number] [address] [place] [address] Sep, [facility] [address] [id number] [address] [place] [address] Sep, [facility] [address] [id number] [address] [place] [address] Sep, [facility] [address] [id number] [address] [place] [address] Sep, [facility] [address] [id number] [address] [place] [address] Sep, [facility] [address] [id number] [address] [place] [address], [place] [address] 04 Sep, 2014 [facility] [address] [id number] [address] [place] [address], [place] [address] Sep, [facility] [address] [id number] [address] [place] [address], [place] [address] Sep, [facility] [address] [id number] [address] [place] [address], [place] [address] Sep, [facility] [address] [id number] [address] [place] [address], [place] [address] Sep, [facility] [address] [id number] [address] [place] [address], [place] [address] Aug, [facility] [address] [id number] [address] [place] [address], [place] [address] Aug, [facility] [address] [id number] [address] [place] [address], [place] [address] 15 Aug, 2014 [facility] [address] [id number] [address] [place] [address], [place] [address] Aug, [facility] [address] [id number] [address] [place] [address], [place] [address] Aug, [facility] [address] [id number] [address] [place] [address], [place] [address] Aug, [facility] [address] [id number] [address] [place] [address], [place] [address] Jul, [facility] [address] [id number] [address] [place] [address], [place] [address] Jul, [facility] [address] [id number] [address] [place] [address], [place] [address] Jul, [facility] [address] [id number] [address] [place] [address], [place] [address] Jul, [facility] [address] [id number] [address] [place] [address], [place] [address] Jun, [facility] [address] [id number] [address] [place] [address] Jun, [facility] [address] [id number] [address] [place] [address] Jun, [facility] [address] [id number] [address] [place] [address] Jun, [facility] [address] [id number] [address] [place] [address] May, [facility] [address] [id number] [address] [place] [address] May, [facility] [address] [id number] [address] [place] [address] Dec, [facility] [address] [id number] [address] [place] [address] Dec, [facility] [address] [id number] [address] [place] [address] Jun, [facility] [address] [id number] [address] [place] [address] Jun, IMMUNIZATIONS No Known Immunizations SOCIAL HISTORY Never Assessed REASON FOR VISIT other PLAN OF CARE VITAL SIGNS MEDICATIONS Unknown Medications RESULTS No Results PROCEDURES No Known procedures INSTRUCTIONS MEDICATIONS ADMINISTERED No Known Medications MEDICAL (GENERAL) HISTORY Type Description Date Medical History Migraines with aura Surgical History oral surgery to remove prima ry teeth and excise permanent teeth from roof of mouth Hospitalization History see surgeries
--- OUTSIDE RECORDS SUMMARY | 2019-11-03 06:02 | XMS REPORT ---
Author Author Ciara LOZANO Organization [facility] Address [address] [place] [address] Care Team Providers Care Crabber Name Role Phone BLAKE LAXMI Unavailable PROBLEMS Type Condition ICD9-CM Code PEK94-WP Code Onset Dates Condition S tatus SNOMED Code Problem Migraine with aura and without status migrainosu s, not intractable G43.109 Active 3423954 ALLERGIES No Information ENCOUNTERS Encounter Location Date Diagnosis [place] [id number] [address] [place] [phone] Feb, [address] [phone] Jan, Encounter for vis it Z39.2 and control counseling Z30.09 [place] [address] [address] [place] [id number] [address] [place] [address] Dec, care, subsequent pr egnancy in third trimester Z34.83 and 37 weeks gestation of Z3A.37 [place] [address] [address] [place] [id number] [address] [place] [phone] Dec, care, subsequent pr egnancy in third trimester Z34.83 ; 36 weeks gestation of Z3A.36 and Antepartum malpresentation of fetus P01.7 [place] [address] [address] [place] [id number] [address] [place] [phone] November, care, subsequent pr egnancy in third trimester Z34.83 ; 33 weeks gestation of Z3A.33 and Decreased movements in third trimester, single or unspecified fetus O36.8130 [place] [address] [address] [place] [id number] [address] [place] [address] Oct, care, subsequent pr egnancy in third trimester Z34.83 ; Encounter for immunization Z23 and 31 weeks gestation of Z3A.31 [place] [address] [facility] [id number] [address] [place] [phone] Oct, Third trimester Z3 4.93 and 28 weeks gestation of Z3A.28 [place] [address] [address] [facility] [id number] [address] [place] [address] Sep, care, subsequent pr egnancy in second trimester Z34.82 ; Diabetes mellitus screening Z13.1 ; 25 weeks gestation of Z3A.25 and Evaluate anatomy not seen on prior sonogram Z04.8 [place] [address] [address] [facility] [id number] [address] [place] [phone] 09 Aug, 2017 care, subsequent pr egnancy in second trimester Z34.82 ; Second trimester Z34.92 and 20 weeks gestation of Z3A.20 [place] [address] [address] [facility] [id number] [address] [place] [phone] Jul, [place] [address] [address] [facility] [id number] [address] [place] [address] Jul, Normal in multigra michael Z34.80 ; care, subsequent in second trimester Z34.82 and 15 weeks gestation of Z3A.15 [place] [address] [address] [facility] [id number] [address] [place] [address] May, Normal in multigra michael Z34.80 and 9 weeks gestation of Z3A.09 [place] [address] [id number] [address] [place] [phone] Apr, [place] [address] [facility] [id number] [address] [place] [phone] Apr, Encounter for test Z32.00 [place] [address] [address] [facility] [id number] [address] [place] [phone] 09 Mar, 2016 Hirsutism L68.0 [place] [address] [facility] [id number] [address] [place] [address] Feb, Well woman exam (no gynecolo gical exam) Z00.00 ; control counseling Z30.9 ; Migraine with aura and without status migrainosus, not intractable G43.109 and Hirsutism L68.0 [facility] [address] [facility] [id number] [address] [place] [phone] Mar, Routine follow-up V24.2 ; anemia 648.24 and Contraception management V25.9 [facility] [address] [facility] [id number] [address] [place] [phone] Jan, Supervision of normal first V22.0 [facility] [address] [facility] [id number] [address] [place] [id number] Jan, Dental examination V72.2 [facility] [address] [facility] [id number] [address] [place] [phone] Jan, Supervision of normal first V22.0 [facility] [address] [facility] [id number] [address] [place] [phone] Jan, Supervision of normal first V22.0 [facility] [address] [facility] [id number] [address] [place] [phone] Dec, [facility] [address] [facility] [id number] [address] [place] [phone] Dec, Supervision of normal first V22.0 [facility] [address] [facility] [id number] [address] [place] [address] Dec, [facility] [address] [facility] [id number] [address] [place] [phone] Dec, Supervision of normal first V22.0 [facility] [address] [facility] [id number] [address] [place] [phone] Dec, Supervision of normal first V22.0 [facility] [address] [facility] [id number] [address] [place] [address] Dec, [facility] [address] [id number] [address] [place] [phone] Dec, Supervision of normal first V22.0 [facility] [address] [id number] [address] [place] [id number] November, Dental examination V72.2 [facility] [address] [id number] [address] [place] [phone] November, Rubella non-immune status, a ntepartum 646.83 and Supervision of normal first V22.0 [facility] [address] [id number] [address] [place] [address] November, [facility] [address] [id number] [address] [place] [phone] November, Supervision of normal first V22.0 ; Screening for diabetes mellitus V77.1 and Screening, iron deficiency anemia V78.0 [facility] [address] [id number] [address] [place] [phone] Oct, [facility] [address] [id number] [address] [place] [phone] Oct, [facility] [address] [id number] [address] [place] [phone] Sep, [facility] [address] [id number] [address] [place] [phone] Sep, [facility] [address] [id number] [address] [place] [phone] Sep, [facility] [address] [id number] [address] [place] [phone] Sep, [facility] [address] [id number] [address] [place] [phone] Sep, [facility] [address] [id number] [address] [place] [phone] Sep, [facility] [address] [id number] [address] [place] [address], [place] [address] 04 Sep, 2014 [facility] [address] [id number] [address] [place] [address], [place] [address] Sep, [facility] [address] [id number] [address] [place] [address], [place] [address] Sep, [facility] [address] [id number] [address] [place] [address], [place] [address] Sep, [facility] [address] [id number] [address] [place] [address], [place] [address] Sep, [facility] [address] [id number] [address] [place] [address], [place] [address] Aug, [facility] [address] [id number] [address] [place] [address], [place] [address] Aug, [facility] [address] [id number] [address] [place] [address], [place] [address] 15 Aug, 2014 [facility] [address] [id number] [address] [place] [address], [place] [address] Aug, [facility] [address] [id number] [address] [place] [address], [place] [address] Aug, [facility] [address] [id number] [address] [place] [address], [place] [address] Aug, [facility] [address] [id number] [address] [place] [address], [place] [address] Jul, [facility] [address] [id number] [address] [place] [address], [place] [address] Jul, [facility] [address] [id number] [address] [place] [address], [place] [address] Jul, [facility] [address] [id number] [address] [place] [address], [place] [address] Jul, [facility] [address] [id number] [address] [place] [address], [place] [address] Jun, [facility] [address] [id number] [address] [place] [phone] Jun, [facility] [address] [id number] [address] [place] [address] Jun, [facility] [address] [id number] [address] [place] [phone] Jun, [facility] [address] [id number] [address] [place] [phone] May, [facility] [address] [id number] [address] [place] [address] May, [facility] [address] [id number] [address] [place] [phone] Dec, [facility] [address] [id number] [address] [place] [phone] Dec, [facility] [address] [id number] [address] [place] [address] Jun, [facility] [address] [id number] [address] [place] [phone] Jun, IMMUNIZATIONS No Known Immunizations SOCIAL HISTORY Never Assessed REASON FOR VISIT ob f/u 1 wk-VILMA Mistry PLAN OF CARE Activity Details Follow Up 1 Week, 1 Week Reason: VITAL SIGNS Height 63 in 2017-12-27 Weight 217 lbs 2017-12-27 Temperature 98.3 degrees Fahrenheit 2017-12-27 Heart Rate 90 bpm 2017-12-27 Respiratory Rate 18 2017-12-27 BMI 38.44 kg/m2 2017-12-27 Blood pressure systolic 110 mmHg 2017-12-27 Blood pressure diastolic 70 mmHg 2017-12-27 MEDICATIONS Medication Instructions Dosage Frequency Start Date End Date Duration S tatus Vitamin 27-0.8 MG Active Iron 325 (65 Fe) MG Orally Once a day 1 tablet 24h Active Loratadine 10 MG Orally Once a day 1 tablet 24h Active RESULTS Name Result Date Reference Range UA OB DIP (IN HOUSE) 2017-12-27 Glucose neg Protein neg PROCEDURES Procedure Date Ordered Result Body Site URINE-NO MICRO December 27, 2017 INSTRUCTIONS MEDICATIONS ADMINISTERED No Known Medications MEDICAL (GENERAL) HISTORY Type Description Date Medical History Migraines with aura Surgical History oral surgery to remove prima ry teeth and excise permanent teeth from roof of mouth Hospitalization History see surgeries
--- OUTSIDE RECORDS SUMMARY | 2019-11-03 06:02 | XMS REPORT ---
Author Author Ciara LOZANO Organization [facility] Address [address] [place] [address] Care Team Providers Care Senior Sales Manager Name Role Phone BLAKE LAXMI Unavailable PROBLEMS Type Condition ICD9-CM Code XCW23-UP Code Onset Dates Condition S tatus SNOMED Code Problem Migraine with aura and without status migrainosu s, not intractable G43.109 Active 1603329 ALLERGIES No Known Allergies ENCOUNTERS Encounter Location Date Diagnosis [place] [id number] [address] [place] [phone] Feb, [place] [id number] [address] [place] [address] Jan, Encounter for vis it Z39.2 and control counseling Z30.09 [place] [id number] [address] [place] [phone] Dec, care, subsequent pr egnancy in third trimester Z34.83 and 37 weeks gestation of Z3A.37 [place] [id number] [address] [place] [phone] Dec, care, subsequent pr egnancy in third trimester Z34.83 ; 36 weeks gestation of Z3A.36 and Antepartum malpresentation of fetus P01.7 [place] [id number] [address] [place] [address] November, care, subsequent pr egnancy in third trimester Z34.83 ; 33 weeks gestation of Z3A.33 and Decreased movements in third trimester, single or unspecified fetus O36.8130 [place] [address] [address] [place] [id number] [address] [place] [address] Oct, care, subsequent pr egnancy in third trimester Z34.83 ; Encounter for immunization Z23 and 31 weeks gestation of Z3A.31 [place] [address] [facility] [id number] [address] [place] [phone] 06 Oct, 2017 Third trimester Z3 4.93 and 28 weeks gestation of Z3A.28 [place] [address] [address] [facility] [id number] [address] [place] [address] Sep, care, subsequent pr egnancy in second trimester Z34.82 ; Diabetes mellitus screening Z13.1 ; 25 weeks gestation of Z3A.25 and Evaluate anatomy not seen on prior sonogram Z04.8 [place] [address] [address] [facility] [id number] [address] [place] [phone] 09 Aug, 2017 care, subsequent pr egnancy in second trimester Z34.82 ; Second trimester Z34.92 and 20 weeks gestation of Z3A.20 [place] [address] [address] [place] [id number] [address] [place] [phone] Jul, [place] [address] [facility] [id number] [address] [place] [address] Jul, Normal in multigra michael Z34.80 ; care, subsequent in second trimester Z34.82 and 15 weeks gestation of Z3A.15 [place] [address] [facility] [id number] [address] [place] [address] May, Normal in multigra michael Z34.80 and 9 weeks gestation of Z3A.09 [place] [address] [id number] [address] [place] [address] Apr, [place] [address] [facility] [id number] [address] [place] [phone] Apr, Encounter for test Z32.00 [place] [address] [facility] [id number] [address] [place] [phone] 09 Mar, 2016 Hirsutism L68.0 [place] [address] [place] [id number] [address] [place] [phone] Feb, Well woman exam (no gynecolo gical exam) Z00.00 ; control counseling Z30.9 ; Migraine with aura and without status migrainosus, not intractable G43.109 and Hirsutism L68.0 [facility] [address] [facility] [id number] [address] [place] [phone] Mar, Routine follow-up V24.2 ; anemia 648.24 and Contraception management V25.9 [facility] [address] [facility] [id number] [address] [place] [phone] Jan, Supervision of normal first V22.0 [facility] [address] [id number] [address] [place] [id number] Jan, Dental examination V72.2 [facility] [address] [facility] [id number] [address] [place] [phone] Jan, Supervision of normal first V22.0 [facility] [address] [facility] [id number] [address] [place] [phone] Jan, Supervision of normal first V22.0 [facility] [address] [facility] [id number] [address] [place] [phone] Dec, [facility] [address] [facility] [id number] [address] [place] [phone] Dec, Supervision of normal first V22.0 [facility] [address] [facility] [id number] [address] [place] [address] Dec, [facility] [address] [facility] [id number] [address] [place] [phone] Dec, Supervision of normal first V22.0 [facility] [address] [facility] [id number] [address] [place] [phone] Dec, Supervision of normal first V22.0 [facility] [address] [facility] [id number] [address] [place] [phone] Dec, [facility] [address] [id number] [address] [place] [phone] Dec, Supervision of normal first V22.0 [facility] [address] [id number] [address] [place] [id number] November, Dental examination V72.2 [facility] [address] [id number] [address] [place] [phone] November, Rubella non-immune status, a ntepartum 646.83 and Supervision of normal first V22.0 [facility] [address] [id number] [address] [place] [phone] November, [facility] [address] [facility] [id number] [address] [place] [phone] November, Supervision of normal first V22.0 ; Screening for diabetes mellitus V77.1 and Screening, iron deficiency anemia V78.0 [facility] [address] [id number] [address] [place] [phone] Oct, [facility] [address] [id number] [address] [place] [phone] Oct, [facility] [address] [facility] [id number] [address] [place] [phone] Sep, [facility] [address] [id number] [address] [place] [phone] Sep, [facility] [address] [id number] [address] [place] [phone] Sep, [facility] [address] [id number] [address] [place] [phone] Sep, [facility] [address] [id number] [address] [place] [phone] Sep, [facility] [address] [facility] [id number] [address] [place] [phone] Sep, [facility] [address] [id number] [address] [place] [address], [place] [address] 04 Sep, 2014 [facility] [address] [id number] [address] [place] [address], [place] [address] Sep, [facility] [address] [id number] [address] [place] [address], [place] [address] Sep, [facility] [address] [id number] [address] [place] [address], [place] [address] Sep, [facility] [address] [id number] [address] [place] [address], [place] [address] Sep, [facility] [address] [id number] [address] [place] [address], [place] [address] Aug, [facility] [address] [id number] [address] [place] [address], [place] [address] Aug, [facility] [address] [id number] [address] [place] [address], [place] [address] Aug, [facility] [address] [id number] [address] [place] [address], [place] [address] Aug, [facility] [address] [id number] [address] [place] [address], [place] [address] Aug, [facility] [address] [id number] [address] [place] [address], [place] [address] Aug, [facility] [address] [id number] [address] [place] [address], [place] [address] Jul, [facility] [address] [id number] [address] [place] [address], [place] [address] Jul, [facility] [address] [id number] [address] [place] [address], [place] [address] Jul, [facility] [address] [id number] [address] [place] [address], [place] [address] Jul, [facility] [address] [id number] [address] [place] [address], [place] [address] Jun, [facility] [address] [id number] [address] [place] [phone] 16 Jun, 2014 [facility] [address] [id number] [address] [place] [phone] Jun, [facility] [address] [id number] [address] [place] [phone] Jun, [facility] [address] [id number] [address] [place] [phone] May, [facility] [address] [id number] [address] [place] [phone] May, [facility] [address] [id number] [address] [place] [phone] Dec, [facility] [address] [id number] [address] [place] [phone] Dec, [facility] [address] [id number] [address] [place] [phone] Jun, [facility] [address] [id number] [address] [place] [phone] Jun, IMMUNIZATIONS No Known Immunizations SOCIAL HISTORY Never Assessed REASON FOR VISIT 6wk [employer] PLAN OF CARE Activity Details Follow Up 1 Year Reason:well woman VITAL SIGNS Height 63 in 2018-02-11 Weight 185.6 lbs 2018-02-11 Temperature 98 degrees Fahrenheit 2018-02-11 Heart Rate 103 bpm 2018-02-11 Respiratory Rate 18 2018-02-11 BMI 32.87 kg/m2 2018-02-11 Blood pressure systolic 116 mmHg 2018-02-11 Blood pressure diastolic 24 mmHg 2018-02-11 MEDICATIONS Medication Instructions Dosage Frequency Start Date End Date Duration S tatus Vitamin 27-0.8 MG Active Ortho Micronor 0.35 MG Orally Once a day 1 tablet 24h Jan, 28 day(s) Active Loratadine 10 MG Orally Once a day 1 tablet 24h Not-Taking Iron 325 (65 Fe) MG Orally Once a day 1 tablet 24h Active RESULTS Name Result Date Reference Range TEST, URINE (IN HOUSE) 2018-02-11 RESULTS neg Lot # [id number] Control + Exp date 07/2019 PROCEDURES Procedure Date Ordered Result Body Site URINE TEST February 11, 2018 INSTRUCTIONS MEDICATIONS ADMINISTERED No Known Medications MEDICAL (GENERAL) HISTORY Type Description Date Medical History Migraines with aura Surgical History oral surgery to remove prima ry teeth and excise permanent teeth from roof of mouth Hospitalization History see surgeries
--- OUTSIDE RECORDS SUMMARY | 2019-11-03 06:02 | XMS REPORT ---
Author Author Ciara Posey Organization [facility] Address [address] [place] [address] Care Team Providers Care Experimental Mechanic Name Role Phone PATRICIA Posey Unavailable PROBLEMS Type Condition ICD9-CM Code [id number] Code Onset Dates Condition S tatus SNOMED Code Problem Migraine with aura and without status migrainosu s, not intractable G43.109 Active 7161659 ALLERGIES No Information ENCOUNTERS Encounter Location Date Diagnosis [place] [id number] [address] [place] [phone] Feb, [place] [id number] [address] [place] [address] Jan, Encounter for vis it Z39.2 and control counseling Z30.09 [place] [id number] [address] [place] [phone] Dec, care, subsequent pr egnancy in third trimester Z34.83 and 37 weeks gestation of Z3A.37 [place] [id number] [address] [place] [address] Dec, care, subsequent pr egnancy in third trimester Z34.83 ; 36 weeks gestation of Z3A.36 and Antepartum malpresentation of fetus P01.7 [place] [id number] [address] [place] [address] November, care, subsequent pr egnancy in third trimester Z34.83 ; 33 weeks gestation of Z3A.33 and Decreased movements in third trimester, single or unspecified fetus O36.8130 [place] [address] [address] [place] [id number] [address] [place] [address] Oct, care, subsequent pr egnancy in third trimester Z34.83 ; Encounter for immunization Z23 and 31 weeks gestation of Z3A.31 [place] [address] [address] [facility] [id number] [address] [place] [address] Oct, Third trimester Z3 4.93 and 28 weeks gestation of Z3A.28 [place] [address] [address] [facility] [id number] [address] [place] [address] Sep, care, subsequent pr egnancy in second trimester Z34.82 ; Diabetes mellitus screening Z13.1 ; 25 weeks gestation of Z3A.25 and Evaluate anatomy not seen on prior sonogram Z04.8 [place] [address] [address] [facility] [id number] [address] [place] [phone] 09 Aug, 2017 care, subsequent pr egnancy in second trimester Z34.82 ; Second trimester Z34.92 and 20 weeks gestation of Z3A.20 [place] [address] [address] [facility] [id number] [address] [place] [address] Jul, [place] [address] [address] [facility] [id number] [address] [place] [address] Jul, Normal in multigra michael Z34.80 ; care, subsequent in second trimester Z34.82 and 15 weeks gestation of Z3A.15 [place] [address] [address] [facility] [id number] [address] [place] [address] May, Normal in multigra michael Z34.80 and 9 weeks gestation of Z3A.09 [place] [address] [id number] [address] [place] [phone] Apr, [place] [address] [address] [facility] [id number] [address] [place] [address] Apr, Encounter for test Z32.00 [place] [address] [address] [facility] [id number] [address] [place] [address] Mar, Hirsutism L68.0 [place] [address] [address] [facility] [id number] [address] [place] [address] Feb, Well woman exam (no gynecolo gical exam) Z00.00 ; control counseling Z30.9 ; Migraine with aura and without status migrainosus, not intractable G43.109 and Hirsutism L68.0 [facility] [address] [facility] [id number] [address] [place] [address] Mar, Routine follow-up V24.2 ; anemia 648.24 and Contraception management V25.9 [facility] [address] [facility] [id number] [address] [place] [address] Jan, Supervision of normal first V22.0 [facility] [address] [id number] [address] [place] [id number] Jan, Dental examination V72.2 [facility] [address] [facility] [id number] [address] [place] [address] Jan, Supervision of normal first V22.0 [facility] [address] [facility] [id number] [address] [place] [address] Jan, Supervision of normal first V22.0 [facility] [address] [facility] [id number] [address] [place] [address] Dec, [facility] [address] [facility] [id number] [address] [place] [phone] Dec, Supervision of normal first V22.0 [facility] [address] [facility] [id number] [address] [place] [phone] Dec, [facility] [address] [facility] [id number] [address] [place] [address] Dec, Supervision of normal first V22.0 [facility] [address] [facility] [id number] [address] [place] [address] Dec, Supervision of normal first V22.0 [facility] [address] [facility] [id number] [address] [place] [phone] Dec, [facility] [address] [id number] [address] [place] [phone] Dec, Supervision of normal first V22.0 [facility] [address] [id number] [address] [place] [id number] November, Dental examination V72.2 [facility] [address] [id number] [address] [place] [phone] November, Rubella non-immune status, a ntepartum 646.83 and Supervision of normal first V22.0 [facility] [address] [id number] [address] [place] [address] November, [facility] [address] [facility] [id number] [address] [place] [address] November, Supervision of normal first V22.0 ; Screening for diabetes mellitus V77.1 and Screening, iron deficiency anemia V78.0 [facility] [address] [id number] [address] [place] [phone] Oct, [facility] [address] [id number] [address] [place] [phone] Oct, [facility] [address] [id number] [address] [place] [phone] Sep, [facility] [address] [id number] [address] [place] [phone] Sep, [facility] [address] [id number] [address] [place] [phone] Sep, [facility] [address] [id number] [address] [place] [phone] Sep, [facility] [address] [id number] [address] [place] [phone] Sep, [facility] [address] [id number] [address] [place] [phone] Sep, [facility] [address] [id number] [address] [place] [address], [place] [address] 04 Sep, 2014 [facility] [address] [id number] [address] [place] [address], [place] [address] Sep, [facility] [address] [id number] [address] [place] [address], [place] [address] Sep, [facility] [address] [id number] [address] [place] [address], [place] [address] Sep, [facility] [address] [id number] [address] [place] [address], [place] [address] Sep, [facility] [address] [id number] [address] [place] [address], [place] [address] Aug, [facility] [address] [id number] [address] [place] [address], [place] [address] Aug, [facility] [address] [id number] [address] [place] [address], [place] [address] Aug, [facility] [address] [id number] [address] [place] [address], [place] [address] Aug, [facility] [address] [id number] [address] [place] [address], [place] [address] Aug, [facility] [address] [id number] [address] [place] [address], [place] [address] Aug, [facility] [address] [id number] [address] [place] [address], [place] [address] Jul, [facility] [address] [id number] [address] [place] [address], [place] [address] Jul, [facility] [address] [id number] [address] [place] [address], [place] [address] Jul, [facility] [address] [id number] [address] [place] [address], [place] [address] Jul, [facility] [address] [id number] [address] [place] [address], [place] [address] Jun, [facility] [address] [id number] [address] [place] [phone] 16 Jun, 2014 [facility] [address] [id number] [address] [place] [phone] Jun, [facility] [address] [id number] [address] [place] [phone] Jun, [facility] [address] [id number] [address] [place] [phone] May, [facility] [address] [id number] [address] [place] [phone] May, [facility] [address] [id number] [address] [place] [address] Dec, [facility] [address] [id number] [address] [place] [phone] Dec, [facility] [address] [id number] [address] [place] [phone] Jun, [facility] [address] [id number] [address] [place] [address] Jun, IMMUNIZATIONS No Known Immunizations SOCIAL HISTORY Never Assessed REASON FOR VISIT PLAN OF CARE VITAL SIGNS Height 63 in 2014-08-02 Weight 195.8 lbs 2014-08-02 Temperature 97.7 degrees Fahrenheit 2014-08-02 Heart Rate 74 bpm 2014-08-02 Respiratory Rate 18 2014-08-02 Blood pressure systolic 108 mmHg 2014-08-02 Blood pressure diastolic 72 mmHg 2014-08-02 MEDICATIONS Unknown Medications RESULTS No Results PROCEDURES Procedure Date Ordered Result Body Site TRICHOMONAS VAGIN, DIR PROBE Aug 02, 2014 SCR PAP SMER;NEW PT OBTAIN PREP&CONVY-LAB Aug 02, 2014 CYTOPATH C/V AUTO FLUID REDO Aug 02, 2014 CHYLMD TRACH, DNA, AMP PROBE Aug 02, 2014 CULTURE, BACTERIA, OTHER Aug 02, 2014 URINE-NO MICRO Aug 02, 2014 INSTRUCTIONS MEDICATIONS ADMINISTERED No Known Medications MEDICAL (GENERAL) HISTORY Type Description Date Medical History Migraines with aura Surgical History oral surgery to remove prima ry teeth and excise permanent teeth from roof of mouth Hospitalization History see surgeries
--- OUTSIDE RECORDS SUMMARY | 2019-11-03 06:02 | XMS REPORT ---
Author Author Ciara LOZANO Organization [facility] Address [address] [place] [address] Care Team Providers Care Sign Board Erector Name Role Phone BLAKE LAXMI Unavailable PROBLEMS Type Condition ICD9-CM Code RCQ27-OI Code Onset Dates Condition S tatus SNOMED Code Problem Migraine with aura and without status migrainosu s, not intractable G43.109 Active 0369108 ALLERGIES No Known Allergies ENCOUNTERS Encounter Location Date Diagnosis [place] [id number] [address] [place] [address] Feb, [place] [id number] [address] [place] [address] Jan, Encounter for vis it Z39.2 and control counseling Z30.09 [place] [id number] [address] [place] [address] Dec, care, subsequent pr egnancy in third trimester Z34.83 and 37 weeks gestation of Z3A.37 [place] [id number] [address] [place] [address] Dec, care, subsequent pr egnancy in third trimester Z34.83 ; 36 weeks gestation of Z3A.36 and Antepartum malpresentation of fetus P01.7 [place] [id number] [address] [place] [address] November, care, subsequent pr egnancy in third trimester Z34.83 ; 33 weeks gestation of Z3A.33 and Decreased movements in third trimester, single or unspecified fetus O36.8130 [place] [address] [address] [place] [id number] [address] [place] [address] Oct, care, subsequent pr egnancy in third trimester Z34.83 ; Encounter for immunization Z23 and 31 weeks gestation of Z3A.31 [place] [address] [address] [facility] [id number] [address] [place] [address] 06 Oct, 2017 Third trimester Z3 4.93 and 28 weeks gestation of Z3A.28 [place] [address] [address] [facility] [id number] [address] [place] [address] Sep, care, subsequent pr egnancy in second trimester Z34.82 ; Diabetes mellitus screening Z13.1 ; 25 weeks gestation of Z3A.25 and Evaluate anatomy not seen on prior sonogram Z04.8 [place] [address] [address] [facility] [id number] [address] [place] [phone] 09 Aug, 2017 care, subsequent pr egnancy in second trimester Z34.82 ; Second trimester Z34.92 and 20 weeks gestation of Z3A.20 [place] [address] [address] [place] [id number] [address] [place] [address] Jul, [place] [address] [address] [facility] [id number] [address] [place] [address] Jul, Normal in multigra michael Z34.80 ; care, subsequent in second trimester Z34.82 and 15 weeks gestation of Z3A.15 [place] [address] [address] [facility] [id number] [address] [place] [address] May, Normal in multigra mihcael Z34.80 and 9 weeks gestation of Z3A.09 [place] [address] [id number] [address] [place] [address] Apr, [place] [address] [address] [facility] [id number] [address] [place] [address] Apr, Encounter for test Z32.00 [place] [address] [address] [facility] [id number] [address] [place] [id number] 09 Mar, 2016 Hirsutism L68.0 [place] [address] [address] [place] [id number] [address] [place] [phone] Feb, Well woman exam (no gynecolo gical exam) Z00.00 ; control counseling Z30.9 ; Migraine with aura and without status migrainosus, not intractable G43.109 and Hirsutism L68.0 [facility] [address] [facility] [id number] [address] [place] [address] Mar, Routine follow-up V24.2 ; anemia 648.24 and Contraception management V25.9 [facility] [address] [facility] [id number] [address] [place] [address] Jan, Supervision of normal first V22.0 [facility] [address] [id number] [address] [place] [address] [id number] Jan, Dental examination V72.2 [facility] [address] [facility] [id number] [address] [place] [phone] Jan, Supervision of normal first V22.0 [facility] [address] [facility] [id number] [address] [place] [phone] Jan, Supervision of normal first V22.0 [facility] [address] [facility] [id number] [address] [place] [phone] Dec, [facility] [address] [facility] [id number] [address] [place] [address] Dec, Supervision of normal first V22.0 [facility] [address] [facility] [id number] [address] [place] [address] Dec, [facility] [address] [facility] [id number] [address] [place] [phone] Dec, Supervision of normal first V22.0 [facility] [address] [facility] [id number] [address] [place] [address] Dec, Supervision of normal first V22.0 [facility] [address] [facility] [id number] [address] [place] [phone] Dec, [facility] [address] [id number] [address] [place] [address] Dec, Supervision of normal first V22.0 [facility] [address] [id number] [address] [place] [id number] November, Dental examination V72.2 [facility] [address] [id number] [address] [place] [address] November, Rubella non-immune status, a ntepartum 646.83 and Supervision of normal first V22.0 [facility] [address] [id number] [address] [place] [phone] November, [facility] [address] [facility] [id number] [address] [place] [phone] November, Supervision of normal first V22.0 ; Screening for diabetes mellitus V77.1 and Screening, iron deficiency anemia V78.0 [facility] [address] [id number] [address] [place] [address] Oct, [facility] [address] [id number] [address] [place] [phone] Oct, [facility] [address] [facility] [id number] [address] [place] [address] Sep, [facility] [address] [id number] [address] [place] [phone] Sep, [facility] [address] [id number] [address] [place] [phone] Sep, [facility] [address] [id number] [address] [place] [phone] Sep, [facility] [address] [id number] [address] [place] [phone] Sep, [facility] [address] [facility] [id number] [address] [place] [phone] Sep, [facility] [address] [id number] [address] [place] [address], [place] [address] 04 Sep, 2014 [facility] [address] [id number] [address] [place] [address], [place] [address] Sep, [facility] [address] [id number] [address] [place] [address], [place] [address] Sep, [facility] [address] [id number] [address] [place] [address], [place] [address] Sep, [facility] [address] [id number] [address] [place] [address], [place] [address] Sep, [facility] [address] [id number] [address] [place] [address], [place] [address] Aug, [facility] [address] [id number] [address] [place] [address], [place] [address] Aug, [facility] [address] [id number] [address] [place] [address], [place] [address] Aug, [facility] [address] [id number] [address] [place] [address], [place] [address] Aug, [facility] [address] [id number] [address] [place] [address], [place] [address] Aug, [facility] [address] [id number] [address] [place] [address], [place] [address] Aug, [facility] [address] [id number] [address] [place] [address], [place] [address] Jul, [facility] [address] [id number] [address] [place] [address], [place] [address] Jul, [facility] [address] [id number] [address] [place] [address], [place] [address] Jul, [facility] [address] [id number] [address] [place] [address], [place] [address] Jul, [facility] [address] [id number] [address] [place] [address], [place] [address] Jun, [facility] [address] [id number] [address] [place] [address] Jun, [facility] [address] [id number] [address] [place] [phone] Jun, [facility] [address] [id number] [address] [place] [phone] Jun, [facility] [address] [id number] [address] [place] [address] May, [facility] [address] [id number] [address] [place] [phone] May, [facility] [address] [id number] [address] [place] [id number] Dec, [facility] [address] [id number] [address] [place] [address] Dec, [facility] [address] [id number] [address] [place] [phone] Jun, [facility] [address] [id number] [address] [place] [id number] Jun, IMMUNIZATIONS No Known Immunizations SOCIAL HISTORY Never Assessed REASON FOR VISIT OB 3wk f/u-twoodenma PLAN OF CARE Activity Details Follow Up 1 Week, 1 Week Reason: VITAL SIGNS Height 63 in 2017-12-20 Weight 214.1 lbs 2017-12-20 Temperature 98.0 degrees Fahrenheit 2017-12-20 Heart Rate 92 bpm 2017-12-20 Respiratory Rate 20 2017-12-20 BMI 37.926 kg/m2 2017-12-20 Blood pressure systolic 116 mmHg 2017-12-20 Blood pressure diastolic 82 mmHg 2017-12-20 MEDICATIONS Medication Instructions Dosage Frequency Start Date End Date Duration S tatus Vitamin 27-0.8 MG Active Iron 325 (65 Fe) MG Orally Once a day 1 tablet 24h Active Loratadine 10 MG Orally Once a day 1 tablet 24h Active RESULTS No Results PROCEDURES Procedure Date Ordered Result Body Site STREP CULTURE December 20, 2017 URINE-NO MICRO December 20, 2017 INSTRUCTIONS MEDICATIONS ADMINISTERED No Known Medications MEDICAL (GENERAL) HISTORY Type Description Date Medical History Migraines with aura Surgical History oral surgery to remove prima ry teeth and excise permanent teeth from roof of mouth Hospitalization History see surgeries
--- OUTSIDE RECORDS SUMMARY | 2019-11-03 06:02 | XMS REPORT ---
Author Author Ciara Rea Doctor Organization [facility] Address Unknown Phone Unavailable Care Team Providers Care Gang Mower Operator Name Role Phone Migration, Doctor Unavailable Unavailable PROBLEMS Type Condition ICD9-CM Code ORS65-HI Code Onset Dates Condition S tatus SNOMED Code Problem Migraine with aura and without status migrainosu s, not intractable G43.109 Active 3573812 ALLERGIES No Information ENCOUNTERS Encounter Location Date Diagnosis [address] [address] Feb, [address] [address] Jan, Encounter for vis it Z39.2 and control counseling Z30.[address] [address] Dec, care, subsequent pr egnancy in third trimester Z34.83 and 37 weeks gestation of Z3A.37 [place] [id number] [address] [place] [address] Dec, care, subsequent pr egnancy in third trimester Z34.83 ; 36 weeks gestation of Z3A.36 and Antepartum malpresentation of fetus P01.7 [place] [id number] [address] [place] [address] November, care, subsequent pr egnancy in third trimester Z34.83 ; 33 weeks gestation of Z3A.33 and Decreased movements in third trimester, single or unspecified fetus O36.8130 [place] [address] [address] [place] [id number] [address] [place] [address] Oct, care, subsequent pr egnancy in third trimester Z34.83 ; Encounter for immunization Z23 and 31 weeks gestation of Z3A.31 [place] [address] [address] [facility] [id number] [address] [place] [address] Oct, Third trimester Z3 4.93 and 28 weeks gestation of Z3A.28 [place] [address] [address] [place] [id number] [address] [place] [address] 16 Sep, 2017 care, subsequent pr egnancy in second trimester Z34.82 ; Diabetes mellitus screening Z13.1 ; 25 weeks gestation of Z3A.25 and Evaluate anatomy not seen on prior sonogram Z04.8 [place] [address] [address] [facility] [id number] [address] [place] [id number] 09 Aug, 2017 care, subsequent pr egnancy in second trimester Z34.82 ; Second trimester Z34.92 and 20 weeks gestation of Z3A.20 [place] [address] [address] [place] [id number] [address] [place] [address] Jul, [place] [address] [address] Jul, Normal in multigra michael Z34.80 ; care, subsequent in second trimester Z34.82 and 15 weeks gestation of Z3A.15 [place] [address] [address] [place] [id number] [address] [place] [address] May, Normal in multigra michale Z34.80 and 9 weeks gestation of Z3A.09 [place] [address] [address] [place] [id number] [address] [place] [address] Apr, [place] [address] [address] [place] [id number] [address] [place] [address] Apr, Encounter for test Z32.00 [place] [address] [address] [place] [id number] [address] [place] [address] Mar, Hirsutism L68.0 [place] [address] [address] [place] [id number] [address] [place] [address] Feb, Well woman exam (no gynecolo gical exam) Z00.00 ; control counseling Z30.9 ; Migraine with aura and without status migrainosus, not intractable G43.109 and Hirsutism L68.0 [facility] [address] [id number] [address] [place] [address] 02 Mar, 2015 Routine follow-up V24.2 ; anemia 648.24 and Contraception management V25.9 [facility] [address] [facility] [id number] [address] [place] [phone] Jan, Supervision of normal first V22.0 [facility] [address] [id number] [address] [place] [id number] Jan, Dental examination V72.2 [facility] [address] [facility] [id number] [address] [place] [phone] Jan, Supervision of normal first V22.0 [facility] [address] [facility] [id number] [address] [place] [phone] Jan, Supervision of normal first V22.0 [facility] [address] [id number] [address] [place] [phone] Dec, [facility] [address] [id number] [address] [place] [phone] Dec, Supervision of normal first V22.0 [facility] [address] [id number] [address] [place] [phone] Dec, [facility] [address] [facility] [id number] [address] [place] [phone] Dec, Supervision of normal first V22.0 [facility] [address] [id number] [address] [place] [phone] Dec, Supervision of normal first V22.0 [facility] [address] [id number] [address] [place] [phone] Dec, [facility] [address] [facility] [id number] [address] [place] [phone] Dec, Supervision of normal first V22.0 [facility] [address] [id number] [address] [place] [id number] November, Dental examination V72.2 [facility] [address] [id number] [address] [place] [address] November, Rubella non-immune status, a ntepartum 646.83 and Supervision of normal first V22.0 [facility] [address] [id number] [address] [place] [phone] November, [facility] [address] [id number] [address] [place] [phone] November, Supervision of normal first V22.0 ; Screening for diabetes mellitus V77.1 and Screening, iron deficiency anemia V78.0 [facility] [address] [id number] [address] [place] [id number] 14 Oct, 2014 [facility] [address] [id number] [address] [place] [phone] Oct, [facility] [address] [id number] [address] [place] [phone] Sep, [facility] [address] [id number] [address] [place] [address] Sep, [facility] [address] [id number] [address] [place] [phone] Sep, [facility] [address] [id number] [address] [place] [address] Sep, [facility] [address] [id number] [address] [place] [address] Sep, [facility] [address] [id number] [address] [place] [address] Sep, [facility] [address] [id number] [address] [place] [phone] Sep, [facility] [address] [id number] [address] [place] [address], [place] [address] Sep, [facility] [address] [id number] [address] [place] [address], [place] [address] Sep, [facility] [address] [id number] [address] [place] [address], [place] [address] Sep, [facility] [address] [id number] [address] [place] [address], [place] [address] Sep, [facility] [address] [id number] [address] [place] [address], [place] [address] Aug, [facility] [address] [id number] [address] [place] [address], [place] [address] Aug, [facility] [address] [id number] [address] [place] [address], [place] [address] Aug, [facility] [address] [id number] [address] [place] [address], [place] [address] Aug, [facility] [address] [id number] [address] [place] [address], [place] [address] Aug, [facility] [address] [id number] [address] [place] [address], [place] [address] Aug, [facility] [address] [id number] [address] [place] [address], [place] [address] Jul, [facility] [address] [id number] [address] [place] [address], [place] [address] Jul, [facility] [address] [id number] [address] [place] [address], [place] [address] Jul, [facility] [address] [id number] [address] [place] [address], [place] [address] Jul, [facility] [address] [id number] [address] [place] [address], [place] [address] Jun, [facility] [address] [id number] [address] [place] [address] [address] Jun, [facility] [address] [id number] [address] [place] [phone] Jun, [facility] [address] [id number] [address] [place] [phone] Jun, [facility] [address] [id number] [address] [place] [phone] May, [facility] [address] [id number] [address] [place] [phone] May, [facility] [address] [id number] [address] [place] [phone] Dec, [facility] [address] [id number] [address] [place] [phone] Dec, [facility] [address] [id number] [address] [place] [address] Jun, [facility] [address] [id number] [address] [place] [address] Jun, IMMUNIZATIONS No Known Immunizations SOCIAL HISTORY Never Assessed REASON FOR VISIT EMR-[facility] PLAN OF CARE VITAL SIGNS MEDICATIONS Unknown Medications RESULTS No Results PROCEDURES No Known procedures INSTRUCTIONS MEDICATIONS ADMINISTERED No Known Medications MEDICAL (GENERAL) HISTORY Type Description Date Medical History Migraines with aura Surgical History oral surgery to remove prima ry teeth and excise permanent teeth from roof of mouth Hospitalization History see surgeries
--- OUTSIDE RECORDS SUMMARY | 2019-11-03 06:03 | XMS REPORT ---
Author Ciara Mills [facility] eClinical[employer] Address Unknown Phone Unavailable Care Team Providers Care Unix Engineer Name Role Phone LAXMI LOZANO CP Unavailable Allergies No Known Allergies Problems Problem Type Condition ICD-9 Code Onset Dates Condition Statu s Problem Rubella non-immune status, antepartum 646.83 Active Problem Supervision of normal first V22.0 Active Problem Anemia complicating 648.20 Active Assessment anemia 648.24 Active Assessment Contraception management V25.9 Act will Problem examination or test, positive result V72.42 Active Assessment Routine follow-up V24.2 Active Medications Medication Code System Code Instructions Start Date End Date Status Dosage Ortho [facility] [address]-31 0.35 MG Orally Once a day Mar 23, 2015 1 tablet Procedures Procedure Coding System Code Date URINE TEST CPT-4 92681 Mar 23 15 Office Visit, Est Pt., Level 3 CPT-4 87365 S ep2014 COMPLETE CBC W/AUTO DIFF WBC CPT-4 69453 Mar t 2014 VENIPUNCT, ROUTINE* CPT-4 33961 Mar 23, 201 5 Vital Signs Date/Time: Mar 23, 2015 Temperature 98.4 F Weight 188.2 lbs Height 63 in BMI 33.33 Index Blood Pressure Diastolic 64 mmHg Blood Pressure Systolic 118 mmHg Cardiac Monitoring Heart Rate 76 bpm Results Name Result Date Reference Range Unit Abnormali ty Flag TEST, URINE (IN HOUSE) Summary Purpose eClinicalWorks Submission
--- OUTSIDE RECORDS SUMMARY | 2019-11-03 06:03 | XMS REPORT ---
Author Author Ciara LOZANO [facility] Address [address] [place] [address] Care Team Providers Care Computer Aide Name Role Phone BLAKE LAXMI Unavailable PROBLEMS Type Condition ICD9-CM Code LEX17-VT Code Onset Dates Condition S tatus SNOMED Code Problem care, subsequent in third trimester Z34.83 Active 256881961 Problem Migraine with aura and without status migrainosu s, not intractable G43.109 Active 3799280 Problem Other specified diseases and conditions complicating , childbirth and the puerperium O99.89 Active 713336224 Problem Underimmunization status Z28.3 Activ e [id number] ALLERGIES No Known Allergies ENCOUNTERS Encounter Location Date Diagnosis [place] [id number] [place] [address] Dec, [place] [address] [address] [place] [id number] [address] [place] [address] Dec, [place] [address] [address] [place] [id number] [address] [place] [address] Dec, [place] [address] [address] [place] [id number] [address] [place] [address] November, care, subsequent pr egnancy in third trimester Z34.83 ; 33 weeks gestation of Z3A.33 and Decreased movements in third trimester, single or unspecified fetus O36.8130 [place] [address] [address] [place] [id number] [address] [place] [address] Oct, care, subsequent pr egnancy in third trimester Z34.83 ; Encounter for immunization Z23 and 31 weeks gestation of Z3A.31 [place] [address] [address] [place] [id number] [address] [place] [address] Oct, Third trimester Z3 4.93 and 28 weeks gestation of Z3A.28 [place] [address] [address] Sep, care, subsequent pr egnancy in second trimester Z34.82 ; Diabetes mellitus screening Z13.1 ; 25 weeks gestation of Z3A.25 and Evaluate anatomy not seen on prior sonogram Z04.8 [place] [address] [address] 09 Aug, 2017 care, subsequent pr egnancy in second trimester Z34.82 ; Second trimester Z34.92 and 20 weeks gestation of Z3A.20 [place] [address] [address] Jul, [place] [address] [address] Jul, Normal in multigra michael Z34.80 ; care, subsequent in second trimester Z34.82 and 15 weeks gestation of Z3A.15 [place] [address] [address] May, Normal in multigra michael Z34.80 and 9 weeks gestation of Z3A.09 [place] [address] [address] Apr, [place] [address] [address] Apr, Encounter for test Z32.00 [place] [address] [address] 09 Mar, 2016 Hirsutism L68.0 [place] [address] [place] [id number] [place] [address] Feb, Well woman exam (no gynecolo gical exam) Z00.00 ; control counseling Z30.9 ; Migraine with aura and without status migrainosus, not intractable G43.109 and Hirsutism L68.0 [facility] [address] [id number] [address] [place] [address] 02 Mar, 2015 Routine follow-up V24.2 ; anemia 648.24 and Contraception management V25.9 [facility] [address] [id number] [address] [place] [address] Jan, Supervision of normal first V22.0 [facility] [address] [id number] [address] [place] [id number] Jan, Dental examination V72.2 [facility] [address] [id number] [address] [place] [address] Jan, Supervision of normal first V22.0 [facility] [address] [id number] [address] [place] [address] Jan, Supervision of normal first V22.0 [facility] [address] [id number] [address] [place] [address] Dec, [facility] [address] [id number] [address] [place] [address] Dec, Supervision of normal first V22.0 [facility] [address] [id number] [address] [place] [address] Dec, [facility] [address] [id number] [address] [place] [address] Dec, Supervision of normal first V22.0 [facility] [address] [id number] [address] [place] [address] Dec, Supervision of normal first V22.0 [facility] [address] [id number] [address] [place] [address] Dec, [facility] [address] [id number] [address] [place] [address] Dec, Supervision of normal first V22.0 [facility] [address] [id number] [address] [place] [id number] November, Dental examination V72.2 [facility] [address] [facility] [id number] [address] [place] [address] November, Rubella non-immune status, a ntepartum 646.83 and Supervision of normal first V22.0 [facility] [address] [id number] [address] [place] [address] November, [facility] [address] [id number] [address] [place] [address] November, Supervision of normal first V22.0 ; Screening for diabetes mellitus V77.1 and Screening, iron deficiency anemia V78.0 [facility] [address] [id number] [address] [place] [address] 14 Oct, 2014 [facility] [address] [id number] [address] [place] [phone] Oct, [facility] [address] [id number] [address] [place] [address] Sep, [facility] [address] [id number] [address] [place] [address] Sep, [facility] [address] [id number] [address] [place] [address] Sep, [facility] [address] [id number] [address] [place] [address] Sep, [facility] [address] [id number] [address] [place] [address] Sep, [facility] [address] [id number] [address] [place] [address] Sep, [facility] [address] [id number] [address] [place] [address] Sep, [facility] [address] [id number] [address] [place] [address] Sep, [facility] [address] [id number] [address] [place] [address], [place] [address] Sep, [facility] [address] [id number] [address] [place] [address], [place] [address] Sep, [facility] [address] [id number] [address] [place] [address], [place] [address] Sep, [facility] [address] [id number] [address] [place] [address], [place] [address] Aug, [facility] [address] [id number] [address] [place] [address], [place] [address] Aug, [facility] [address] [id number] [address] [place] [address], [place] [address] Aug, [facility] [address] [id number] [address] [place] [address], [place] [address] Aug, [facility] [address] [id number] [address] [place] [address], [place] [address] Aug, [facility] [address] [id number] [address] [place] [address], [place] [address] Aug, [facility] [address] [id number] [address] [place] [address], [place] [address] Jul, [facility] [address] [id number] [address] [place] [address], [place] [address] Jul, [facility] [address] [id number] [address] [place] [address], [place] [address] Jul, [facility] [address] [id number] [address] [place] [address], [place] [address] Jul, [facility] [address] [id number] [address] [place] [address], [place] [address] Jun, [facility] [address] [id number] [address] [place] [address], [place] [address] Jun, [facility] [address] [id number] [address] [place] [id number] 15 Jun, 2014 [facility] [address] [id number] [address] [place] [address] Jun, [facility] [address] [id number] [address] [place] [address] May, [facility] [address] [id number] [address] [place] [address] May, [facility] [address] [id number] [address] [place] [address] Dec, [facility] [address] [id number] [address] [place] [address] Dec, [facility] [address] [id number] [address] [place] [address] Jun, [facility] [address] [id number] [address] [place] [address] Jun, IMMUNIZATIONS No Known Immunizations SOCIAL HISTORY Never Assessed REASON FOR VISIT OB-intake -- tara conley PLAN OF CARE Activity Details Follow Up 4W, 4 Weeks Reason: VITAL SIGNS Height 63 in 2017-06-18 Weight 187.6 lbs 2017-06-18 Temperature 98.7 degrees Fahrenheit 2017-06-18 Heart Rate 80 bpm 2017-06-18 Respiratory Rate 22 2017-06-18 BMI 33.232 kg/m2 2017-06-18 Blood pressure systolic 126 mmHg 2017-06-18 Blood pressure diastolic 80 mmHg 2017-06-18 MEDICATIONS Medication Instructions Dosage Frequency Start Date End Date Duration S tatus Vitamin 27-0.8 MG Active RESULTS No Results PROCEDURES Procedure Date Ordered Result Body Site BLOOD TYPING, ABO Jun 18, 2017 BLOOD TYPING, RH (D) Jun 18, 2017 SPECIMEN HANDLING Jun 18, 2017 TRICHOMONAS ASSAY W/OPTIC Jun 18, 2017 No Charge Jun 18, 2017 URINE CULTURE/COLONY COUNT Jun 18, 2017 RBC ANTIBODY SCREEN Jun 18, 2017 COMPLETE CBC W/AUTO DIFF WBC Jun 18, 2017 CULTURE, BACTERIA, OTHER Jun 18, 2017 URINALYSIS, AUTO, W/O SCOPE Jun 18, 2017 ASSAY THYROID STIM HORMONE Jun 18, 2017 VENIPUNCT, ROUTINE* Jun 18, 2017 DRUG TEST PRSMV DIR OPT OBS Jun 18, 2017 INSTRUCTIONS MEDICATIONS ADMINISTERED No Known Medications MEDICAL (GENERAL) HISTORY Type Description Date Medical History Migraines with aura Surgical History oral surgery to remove prima ry teeth and excise permanent teeth from roof of mouth Hospitalization History see surgeries
--- OUTSIDE RECORDS SUMMARY | 2019-11-03 06:03 | XMS REPORT ---
Author Author Ciara LOZANO [facility] Address [address] [place] [address] Care Team Providers Care Carton Forming Machine Helper Name Role Phone BLAKE LAXMI Unavailable PROBLEMS Type Condition ICD9-CM Code WVV04-ZG Code Onset Dates Condition S tatus SNOMED Code Problem care, subsequent in third trimester Z34.83 Active 107525388 Problem Migraine with aura and without status migrainosu s, not intractable G43.109 Active 6221824 Problem Other specified diseases and conditions complicating , childbirth and the puerperium O99.89 Active 503900809 Problem Underimmunization status Z28.3 Activ e [id number] ALLERGIES No Known Allergies ENCOUNTERS Encounter Location Date Diagnosis [place] [address] [address] [facility] [id number] [address] [place] [address] Jan, [place] [address] [place] [id number] [address] [place] [address] Dec, care, subsequent pr egnancy in third trimester Z34.83 and 37 weeks gestation of Z3A.37 [place] [address] [address] [facility] [id number] [address] [place] [address] Dec, care, subsequent pr egnancy in third trimester Z34.83 ; 36 weeks gestation of Z3A.36 and Antepartum malpresentation of fetus P01.7 [place] [address] [place] [id number] [address] [place] [address] November, care, subsequent pr egnancy in third trimester Z34.83 ; 33 weeks gestation of Z3A.33 and Decreased movements in third trimester, single or unspecified fetus O36.8130 [place] [address] [place] [id number] [address] [place] [address] Oct, care, subsequent pr egnancy in third trimester Z34.83 ; Encounter for immunization Z23 and 31 weeks gestation of Z3A.31 [place] [address] [place] [id number] [address] [place] [address] Oct, Third trimester Z3 4.93 and 28 weeks gestation of Z3A.28 [place] [address] [place] [id number] [address] [place] [address] Sep, care, subsequent pr egnancy in second trimester Z34.82 ; Diabetes mellitus screening Z13.1 ; 25 weeks gestation of Z3A.25 and Evaluate anatomy not seen on prior sonogram Z04.8 [place] [address] [place] [id number] [address] [place] [address] 09 Aug, 2017 care, subsequent pr egnancy in second trimester Z34.82 ; Second trimester Z34.92 and 20 weeks gestation of Z3A.20 [place] [address] [place] [id number] [address] [place] [address] Jul, [place] [address] [place] [id number] [address] [place] [address] Jul, Normal in multigra michael Z34.80 ; care, subsequent in second trimester Z34.82 and 15 weeks gestation of Z3A.15 [place] [address] [place] [id number] [address] [place] [address] May, Normal in multigra michael Z34.80 and 9 weeks gestation of Z3A.09 [place] [address] [place] [id number] [address] [place] [address] Apr, [place] [address] [place] [id number] [address] [place] [address] Apr, Encounter for test Z32.00 [place] [address] [place] [id number] [address] [place] [address] Mar, Hirsutism L68.0 [facility] [address] [id number] [address] [place] [address] Feb, Well woman exam (no gynecolo gical exam) Z00.00 ; control counseling Z30.9 ; Migraine with aura and without status migrainosus, not intractable G43.109 and Hirsutism L68.0 [facility] [address] [id number] [address] [place] [address] Mar, Routine follow-up V24.2 ; anemia 648.24 and Contraception management V25.9 [facility] [address] [id number] [address] [place] [address] Jan, Supervision of normal first V22.0 [facility] [address] [id number] [address] [place] [address] [phone] Jan, Dental examination V72.2 [facility] [address] [facility] [id number] [address] [place] [address] Jan, Supervision of normal first V22.0 [facility] [address] [id number] [address] [place] [address] Jan, Supervision of normal first V22.0 [facility] [address] [id number] [address] [place] [address] Dec, [facility] [address] [id number] [address] [place] [address] Dec, Supervision of normal first V22.0 [facility] [address] [id number] [address] [place] [address] Dec, [facility] [address] [id number] [address] [place] [address] Dec, Supervision of normal first V22.0 [facility] [address] [id number] [address] [place] [address] Dec, Supervision of normal first V22.0 [facility] [address] [id number] [address] [place] [address] Dec, [facility] [address] [id number] [address] [place] [address] Dec, Supervision of normal first V22.0 [facility] [address] [id number] [address] [place] [id number] November, Dental examination V72.2 [facility] [address] [id number] [address] [place] [address] November, Rubella non-immune status, a ntepartum 646.83 and Supervision of normal first V22.0 [facility] [address] [id number] [address] [place] [address] November, [facility] [address] [id number] [address] [place] [address] November, Supervision of normal first V22.0 ; Screening for diabetes mellitus V77.1 and Screening, iron deficiency anemia V78.0 [facility] [address] [id number] [address] [place] [address] Oct, [facility] [address] [id number] [address] [place] [address] Oct, [facility] [address] [id number] [address] [place] [address] Sep, [facility] [address] [id number] [address] [place] [phone] Sep, [facility] [address] [id number] [address] [place] [address] Sep, [facility] [address] [id number] [address] [place] [address] Sep, [facility] [address] [id number] [address] [place] [address] Sep, [facility] [address] [id number] [address] [place] [address] Sep, [facility] [address] [id number] [address] [place] [address], [place] [address] 04 Sep, 2014 [facility] [address] [id number] [address] [place] [address], [place] [address] Sep, [facility] [address] [id number] [address] [place] [address], [place] [address] Sep, [facility] [address] [id number] [address] [place] [address], [place] [address] Sep, [facility] [address] [id number] [address] [place] [address], [place] [address] Sep, [facility] [address] [id number] [address] [place] [address], [place] [address] Aug, [facility] [address] [id number] [address] [place] [address], [place] [address] Aug, [facility] [address] [id number] [address] [place] [address], [place] [address] Aug, [facility] [address] [id number] [address] [place] [address], [place] [address] Aug, [facility] [address] [id number] [address] [place] [address], [place] [address] Aug, [facility] [address] [id number] [address] [place] [address], [place] [address] Aug, [facility] [address] [id number] [address] [place] [address], [place] [address] Jul, [facility] [address] [id number] [address] [place] [address], [place] [address] Jul, [facility] [address] [id number] [address] [place] [address], [place] [address] Jul, [facility] [address] [id number] [address] [place] [address], [place] [address] Jul, [facility] [address] [id number] [address] [place] [address] 17 Jun, 2014 [facility] [address] [id number] [address] [place] [address] 16 Jun, 2014 [facility] [address] [id number] [address] [place] [address] Jun, [facility] [address] [id number] [address] [place] [address] Jun, [facility] [address] [id number] [address] [place] [address] May, [facility] [address] [id number] [address] [place] [address] May, [facility] [address] [id number] [address] [place] [address] Dec, [facility] [address] [id number] [address] [place] [phone] Dec, [facility] [address] [id number] [address] [place] [address] Jun, [facility] [address] [id number] [address] [place] [phone] Jun, IMMUNIZATIONS No Known Immunizations SOCIAL HISTORY Never Assessed REASON FOR VISIT OB f/u--tcuppettRN PLAN OF CARE Activity Details Follow Up 4 Weeks Reason: VITAL SIGNS Height 63 in 2017-07-26 Weight 188.5 lbs 2017-07-26 Temperature 97.8 degrees Fahrenheit 2017-07-26 Heart Rate 76 bpm 2017-07-26 Respiratory Rate 20 2017-07-26 BMI 33.391 kg/m2 2017-07-26 Blood pressure systolic 124 mmHg 2017-07-26 Blood pressure diastolic 70 mmHg 2017-07-26 MEDICATIONS Medication Instructions Dosage Frequency Start Date End Date Duration S tatus Loratadine 10 MG Orally Once a day 1 tablet 24h Active Vitamin 27-0.8 MG Active RESULTS No Results PROCEDURES Procedure Date Ordered Result Body Site URINE-NO MICRO Jul 26, 2017 CHEMILUMINESCENT ASSAY Jul 26, 2017 RUBELLA ANTIBODY Jul 26, 2017 VENIPUNCT, ROUTINE* Jul 26, 2017 INHIBIN A Jul 26, 2017 ALPHA-FETOPROTEIN, SERUM Jul 26, 2017 CHORIONIC GONADOTROPIN TEST Jul 26, 2017 ASSAY OF ESTRIOL Jul 26, 2017 INSTRUCTIONS MEDICATIONS ADMINISTERED No Known Medications MEDICAL (GENERAL) HISTORY Type Description Date Medical History Migraines with aura Surgical History oral surgery to remove prima ry teeth and excise permanent teeth from roof of mouth Hospitalization History see surgeries
--- OUTSIDE RECORDS SUMMARY | 2019-11-03 06:03 | XMS REPORT ---
Author Author Ciara LOZANO Organization [facility] Address [address] [place] [address] Care Team Providers Care Watch Engineer Name Role Phone LAXMI LOZANO Unavailable PROBLEMS Type Condition ICD9-CM Code POR53-VV Code Onset Dates Condition S tatus SNOMED Code Problem Migraine with aura and without status migrainosu s, not intractable G43.109 Active 0946783 Assessment Hirsutism L68.0 Mar, Active 554580 002 ALLERGIES Unknown Allergies SOCIAL HISTORY No smoking Hx information available PLAN OF CARE VITAL SIGNS MEDICATIONS Unknown Medications RESULTS Name Result Date Reference Range TESTOSTERONE, TOTAL (WOMEN, CHILDREN, HYPOGONADAL MALES) 2016-03-30 Testosterone, Total, LC/MS 26 Comment: TSH 2016-03-30 TSH 1.010 0.450-4.500 INSULIN LEVEL 2016-03-30 Insulin 7.7 2.6-24.9 LIPID PANEL 2016-03-30 Cholesterol, Total 199 100-199 Triglycerides 96 0-149 HDL Cholesterol 71 >39 VLDL Cholesterol Amrik 19 5-40 LDL Cholesterol Calc 109 0-99 CMP 2016-03-30 Glucose, Serum 76 65-99 BUN 12 6-20 Creatinine, Serum 0.73 0.57-1.00 eGFR If NonAfricn Am 116 >59 eGFR If Africn Am 133 >59 BUN/Creatinine Ratio 16 8-20 Sodium, Serum 141 134-144 Potassium, Serum 4.5 3.5-5.2 Chloride, Serum 101 97-108 Carbon Dioxide, Total 26 18-29 Calcium, Serum 9.2 8.7-10.2 Protein, Total, Serum 7.0 6.0-8.5 Albumin, Serum 4.3 3.5-5.5 Globulin, Total 2.7 1.5-4.5 A/G Ratio 1.6 1.1-2.5 Bilirubin, Total 0.5 0.0-1.2 Alkaline Phosphatase, S 90 39-117 AST (SGOT) 18 0-40 ALT (SGPT) 26 0-32 PROCEDURES Procedure Date Ordered Related Diagnosis Body Site ASSAY OF TOTAL TESTOSTERONE Mar 30, 2016 ASSAY THYROID STIM HORMONE Mar 30, 2016 LIPID PANEL Mar 30, 2016 ASSAY OF INSULIN Mar 30, 2016 VENIPUNCT, ROUTINE* Mar 30, 2016 COMPREHEN METABOLIC PANEL Mar 30, 2016 IMMUNIZATIONS No Known Immunizations
--- OUTSIDE RECORDS SUMMARY | 2019-11-03 06:03 | XMS REPORT ---
Author Author Ciara HARDY [facility] Address [address] [place] [address] Care Team Providers Care Correction Officer Penitentiary Name Role Phone ANTONY ERIC Unavailable PROBLEMS Type Condition ICD9-CM Code MWM15-HE Code Onset Dates Condition S tatus SNOMED Code Problem care, subsequent in third trimester Z34.83 Active 412677117 Problem Migraine with aura and without status migrainosu s, not intractable G43.109 Active 9608025 Problem Other specified diseases and conditions complicating , childbirth and the puerperium O99.89 Active 381890712 Problem Underimmunization status Z28.3 Activ e [id number] ALLERGIES No Known Allergies ENCOUNTERS Encounter Location Date Diagnosis [place] [address] [place] [id number] [address] [place] [address] Dec, [place] [place] [id number] [address] [place] [address] Dec, [place] [address] [place] [id number] [address] [place] [address] Dec, [place] [address] [place] [id number] [address] [place] [address] November, care, subsequent pr egnancy in third trimester Z34.83 ; 33 weeks gestation of Z3A.33 and Decreased movements in third trimester, single or unspecified fetus O36.8130 [facility] [address] [place] [id number] [address] [place] [address] Oct, care, subsequent pr egnancy in third trimester Z34.83 ; Encounter for immunization Z23 and 31 weeks gestation of Z3A.31 [facility] [address] [place] [id number] [address] [place] [address] Oct, Third trimester Z3 4.93 and 28 weeks gestation of Z3A.28 [place] [address] [address] 16 Sep, 2017 care, subsequent pr egnancy in second trimester Z34.82 ; Diabetes mellitus screening Z13.1 ; 25 weeks gestation of Z3A.25 and Evaluate anatomy not seen on prior sonogram Z04.8 [place] [address] [address] 09 Aug, 2017 care, subsequent pr egnancy in second trimester Z34.82 ; Second trimester Z34.92 and 20 weeks gestation of Z3A.20 [place] [address] [address] Jul, [place] [address] [address] Jul, Normal in multigra michael Z34.80 ; care, subsequent in second trimester Z34.82 and 15 weeks gestation of Z3A.[address] [address] May, Normal in multigra michael Z34.80 and 9 weeks gestation of Z3A.09 [place] [address] [address] Apr, [place] [address] [address] Apr, Encounter for test Z32.00 [place] [address] [address] Mar, Hirsutism L68.0 [place] [address] [place] [id number] [address] [place] [address] Feb, Well woman exam (no gynecolo gical exam) Z00.00 ; control counseling Z30.9 ; Migraine with aura and without status migrainosus, not intractable G43.109 and Hirsutism L68.0 [facility] [address] [id number] [address] [place] [address] 02 Mar, 2015 Routine follow-up V24.2 ; anemia 648.24 and Contraception management V25.9 [facility] [address] [id number] [address] [place] [address] Jan, Supervision of normal first V22.0 [facility] [address] [id number] [address] [place] [id number] Jan, Dental examination V72.2 [facility] [address] [id number] [address] [place] [address] Jan, Supervision of normal first V22.0 [facility] [address] [id number] [address] [place] [address] Jan, Supervision of normal first V22.0 [facility] [address] [id number] [address] [place] [address] Dec, [facility] [address] [id number] [address] [place] [address] Dec, Supervision of normal first V22.0 [facility] [address] [id number] [address] [place] [address] Dec, [facility] [address] [id number] [address] [place] [address] Dec, Supervision of normal first V22.0 [facility] [address] [id number] [address] [place] [address] Dec, Supervision of normal first V22.0 [facility] [address] [id number] [address] [place] [address] Dec, [facility] [address] [id number] [address] [place] [address] Dec, Supervision of normal first V22.0 [facility] [address] [id number] [address] [place] [id number] November, Dental examination V72.2 [facility] [address] [facility] [id number] [address] [place] [address] November, Rubella non-immune status, a ntepartum 646.83 and Supervision of normal first V22.0 [facility] [address] [facility] [id number] [address] [place] [address] November, [facility] [address] [facility] [id number] [address] [place] [address] November, Supervision of normal first V22.0 ; Screening for diabetes mellitus V77.1 and Screening, iron deficiency anemia V78.0 [facility] [address] [id number] [address] [place] [address] 14 Oct, 2014 [facility] [address] [id number] [address] [place] [address] Oct, [facility] [address] [id number] [address] [place] [address] Sep, [facility] [address] [id number] [address] [place] [address] Sep, [facility] [address] [facility] [id number] [address] [place] [address] Sep, [facility] [address] [id number] [address] [place] [address] Sep, [facility] [address] [id number] [address] [place] [address] Sep, [facility] [address] [id number] [address] [place] [address] Sep, [facility] [address] [facility] [id number] [address] [place] [address] Sep, [facility] [address] [id number] [address] [place] [address] Sep, [facility] [address] [id number] [address] [place] [address], [place] [address] Sep, [facility] [address] [id number] [address] [place] [address], [place] [address] Sep, [facility] [address] [id number] [address] [place] [address], [place] [address] Sep, [facility] [address] [id number] [address] [place] [address], [place] [address] Aug, [facility] [address] [id number] [address] [place] [address], [place] [address] Aug, [facility] [address] [id number] [address] [place] [address], [place] [address] Aug, [facility] [address] [id number] [address] [place] [address], [place] [address] Aug, [facility] [address] [id number] [address] [place] [address], [place] [address] Aug, [facility] [address] [id number] [address] [place] [address], [place] [address] Aug, [facility] [address] [id number] [address] [place] [address], [place] [address] Jul, [facility] [address] [id number] [address] [place] [address], [place] [address] Jul, [facility] [address] [id number] [address] [place] [address], [place] [address] Jul, [facility] [address] [id number] [address] [place] [address], [place] [address] Jul, [facility] [address] [id number] [address] [place] [address], [place] [address] Jun, [facility] [address] [id number] [address] [place] [address], [place] [address] Jun, [facility] [address] [id number] [address] [place] [address] Jun, [facility] [address] [id number] [address] [place] [address] Jun, [facility] [address] [id number] [address] [place] [address] May, [facility] [address] [id number] [address] [place] [address] May, [facility] [address] [id number] [address] [place] [address] Dec, [facility] [address] [facility] [id number] [address] [place] [address] Dec, [facility] [address] [facility] [id number] [address] [place] [address] Jun, [facility] [address] [facility] [id number] [address] [place] [id number] Jun, IMMUNIZATIONS No Known Immunizations SOCIAL HISTORY Never Assessed REASON FOR VISIT OB HX PLAN OF CARE VITAL SIGNS MEDICATIONS Unknown Medications RESULTS No Results PROCEDURES No Known procedures INSTRUCTIONS MEDICATIONS ADMINISTERED No Known Medications MEDICAL (GENERAL) HISTORY Type Description Date Medical History Migraines with aura Surgical History oral surgery to remove prima ry teeth and excise permanent teeth from roof of mouth Hospitalization History see surgeries
--- OUTSIDE RECORDS SUMMARY | 2019-11-03 06:03 | XMS REPORT ---
Author Author Ciara LOZANO [facility] Address [address] [place] [address] Care Team Providers Care Childcare Aide Name Role Phone BLAKE LAXIM Unavailable PROBLEMS Type Condition ICD9-CM Code SCY34-IC Code Onset Dates Condition S tatus SNOMED Code Problem care, subsequent in third trimester Z34.83 Active 072335902 Problem Migraine with aura and without status migrainosu s, not intractable G43.109 Active 2153675 Problem Other specified diseases and conditions complicating , childbirth and the puerperium O99.89 Active 635416881 Problem Underimmunization status Z28.3 Activ e [id number] ALLERGIES No Information ENCOUNTERS Encounter Location Date Diagnosis [place] [address] [address] [place] [id number] [address] [place] [address] Jan, [place] [address] [address] [place] [id number] [address] [place] [address] Dec, care, subsequent pr egnancy in third trimester Z34.83 and 37 weeks gestation of Z3A.37 [place] [address] [address] [facility] [id number] [address] [place] [address] Dec, care, subsequent pr egnancy in third trimester Z34.83 ; 36 weeks gestation of Z3A.36 and Antepartum malpresentation of fetus P01.7 [place] [address] [place] [id number] [address] [place] [address] November, care, subsequent pr egnancy in third trimester Z34.83 ; 33 weeks gestation of Z3A.33 and Decreased movements in third trimester, single or unspecified fetus O36.8130 [place] [address] [place] [id number] [address] [place] [address] Oct, care, subsequent pr egnancy in third trimester Z34.83 ; Encounter for immunization Z23 and 31 weeks gestation of Z3A.31 [place] [address] [place] [id number] [address] [place] [phone] Oct, Third trimester Z3 4.93 and 28 weeks gestation of Z3A.28 [place] [address] [place] [id number] [address] [place] [address] Sep, care, subsequent pr egnancy in second trimester Z34.82 ; Diabetes mellitus screening Z13.1 ; 25 weeks gestation of Z3A.25 and Evaluate anatomy not seen on prior sonogram Z04.8 [place] [address] [address] [place] [id number] [address] [place] [phone] 09 Aug, 2017 care, subsequent pr egnancy in second trimester Z34.82 ; Second trimester Z34.92 and 20 weeks gestation of Z3A.20 [place] [address] [place] [id number] [address] [place] [address] Jul, [place] [address] [place] [id number] [address] [place] [address] Jul, Normal in multigra michael Z34.80 ; care, subsequent in second trimester Z34.82 and 15 weeks gestation of Z3A.15 [place] [address] [place] [id number] [address] [place] [address] May, Normal in multigra michael Z34.80 and 9 weeks gestation of Z3A.09 [place] [address] [place] [id number] [address] [place] [address] Apr, [place] [address] [place] [id number] [address] [place] [address] Apr, Encounter for test Z32.00 [place] [address] [address] [place] [id number] [address] [place] [address] Mar, Hirsutism L68.0 [place] [address] [id number] [address] [place] [phone] Feb, Well woman exam (no gynecolo gical exam) Z00.00 ; control counseling Z30.9 ; Migraine with aura and without status migrainosus, not intractable G43.109 and Hirsutism L68.0 [facility] [address] [id number] [address] [place] [address] Mar, Routine follow-up V24.2 ; anemia 648.24 and Contraception management V25.9 [facility] [address] [facility] [id number] [address] [place] [address] Jan, Supervision of normal first V22.0 [facility] [address] [id number] [address] [place] [id number] Jan, Dental examination V72.2 [facility] [address] [facility] [id number] [address] [place] [phone] Jan, Supervision of normal first V22.0 [facility] [address] [facility] [id number] [address] [place] [phone] Jan, Supervision of normal first V22.0 [facility] [address] [facility] [id number] [address] [place] [address] Dec, [facility] [address] [id number] [address] [place] [phone] Dec, Supervision of normal first V22.0 [facility] [address] [id number] [address] [place] [address] Dec, [facility] [address] [id number] [address] [place] [address] Dec, Supervision of normal first V22.0 [facility] [address] [id number] [address] [place] [address] Dec, Supervision of normal first V22.0 [facility] [address] [id number] [address] [place] [phone] Dec, [facility] [address] [id number] [address] [place] [address] Dec, Supervision of normal first V22.0 [facility] [address] [id number] [address] [place] [id number] November, Dental examination V72.2 [facility] [address] [id number] [address] [place] [address] November, Rubella non-immune status, a ntepartum 646.83 and Supervision of normal first V22.0 [facility] [address] [id number] [address] [place] [address] November, [facility] [address] [facility] [id number] [address] [place] [address] November, Supervision of normal first V22.0 ; Screening for diabetes mellitus V77.1 and Screening, iron deficiency anemia V78.0 [facility] [address] [id number] [address] [place] [address] Oct, [facility] [address] [id number] [address] [place] [address] Oct, [facility] [address] [id number] [address] [place] [address] Sep, [facility] [address] [id number] [address] [place] [address] Sep, [facility] [address] [id number] [address] [place] [address] Sep, [facility] [address] [id number] [address] [place] [address] Sep, [facility] [address] [id number] [address] [place] [phone] Sep, [facility] [address] [id number] [address] [place] [address] Sep, [facility] [address] [id number] [address] [place] [address], [place] [address] Sep, [facility] [address] [id number] [address] [place] [address], [place] [address] Sep, [facility] [address] [id number] [address] [place] [address], [place] [address] Sep, [facility] [address] [id number] [address] [place] [address], [place] [address] Sep, [facility] [address] [id number] [address] [place] [address], [place] [address] Sep, [facility] [address] [id number] [address] [place] [address], [place] [address] Aug, [facility] [address] [id number] [address] [place] [address], [place] [address] Aug, [facility] [address] [id number] [address] [place] [address], [place] [address] Aug, [facility] [address] [id number] [address] [place] [address], [place] [address] Aug, [facility] [address] [id number] [address] [place] [address], [place] [address] Aug, [facility] [address] [id number] [address] [place] [address], [place] [address] Aug, [facility] [address] [id number] [address] [place] [address] Jul, [facility] [address] [id number] [address] [place] [address], [place] [address] Jul, [facility] [address] [id number] [address] [place] [address], [place] [address] Jul, [facility] [address] [id number] [address] [place] [address], [place] [address] Jul, [facility] [address] [id number] [address] [place] [phone] 17 Jun, 2014 [facility] [address] [id number] [address] [place] [address] Jun, [facility] [address] [id number] [address] [place] [address] Jun, [facility] [address] [id number] [address] [place] [address] Jun, [facility] [address] [id number] [address] [place] [address] May, [facility] [address] [id number] [address] [place] [phone] May, [facility] [address] [id number] [address] [place] [address] Dec, [facility] [address] [id number] [address] [place] [address] Dec, [facility] [address] [id number] [address] [place] [address] Jun, [facility] [address] [id number] [address] [place] [address] Jun, IMMUNIZATIONS No Known Immunizations SOCIAL HISTORY Never Assessed REASON FOR VISIT lab results PLAN OF CARE VITAL SIGNS MEDICATIONS Unknown Medications RESULTS No Results PROCEDURES No Known procedures INSTRUCTIONS MEDICATIONS ADMINISTERED No Known Medications MEDICAL (GENERAL) HISTORY Type Description Date Medical History Migraines with aura Surgical History oral surgery to remove prima ry teeth and excise permanent teeth from roof of mouth Hospitalization History see surgeries
--- OUTSIDE RECORDS SUMMARY | 2019-11-03 06:03 | XMS REPORT ---
Author Ciara Mills [facility] eClinical[employer] Address Unknown Phone Unavailable Care Team Providers Care Station Supervisor Name Role Phone LAXMI LOZANO CP Unavailable Allergies, Adverse Reactions, Alerts Substance Reaction Event Type N.K.D.A. Info Not Available Non Drug Allergy Problems Problem Type Condition Code Onset Dates Condition Statu s Assessment Well woman exam (no gynecological exam) Z00.00 Active Assessment control counseling Z30.9 Act will Problem Migraine with aura and without status mi grainosus, not intractable G43.109 Active Assessment Migraine with aura and without status mi grainosus, not intractable G43.109 Active Assessment Hirsutism L68.0 Active Medications Medication Code System Code Instructions Start Date End Date Status Dosage Vitamin [facility] [address] 27-0.8 MG Orally not defined Allergy [facility] [address]-58 4 MG Orally every 6 hrs 1 tablet as needed Ortho Micronor [facility] [address]-91 0.35 MG Orally Once a day Mar 23, 2015 1 tablet Procedures Procedure Coding System Code Date Preventive Care Est Pt. Age 18-39 CPT-4 75042 Mar 16, 2016 Vital Signs Date/Time: Mar 16, 2016 Cardiac Monitoring Heart Rate 80 bpm Weight 161.0 lbs Height 63 in BMI 28.52 Index Results No Known Results Summary Purpose eClinicalWorks Submission
--- OUTSIDE RECORDS SUMMARY | 2019-11-03 06:03 | XMS REPORT ---
Author Author Ciara LOZANO Organization [facility] Address [address] [place] [address] Care Team Providers Care Pickle Processor Name Role Phone BLAKE LAXMI Unavailable PROBLEMS Type Condition ICD9-CM Code ROE26-SY Code Onset Dates Condition S tatus SNOMED Code Problem Migraine with aura and without status migrainosu s, not intractable G43.109 Active 9899735 ALLERGIES No Known Allergies ENCOUNTERS Encounter Location Date Diagnosis [address] [address] Jan, Encounter for vis it Z39.2 and control counseling Z30.[address] [address] Dec, care, subsequent pr egnancy in third trimester Z34.83 and 37 weeks gestation of Z3A.[address] [address] Dec, care, subsequent pr egnancy in third trimester Z34.83 ; 36 weeks gestation of Z3A.36 and Antepartum malpresentation of fetus P01.7 [place] [id number] [address] [place] [address] November, care, subsequent pr egnancy in third trimester Z34.83 ; 33 weeks gestation of Z3A.33 and Decreased movements in third trimester, single or unspecified fetus O36.8130 [place] [id number] [address] [place] [address] Oct, care, subsequent pr egnancy in third trimester Z34.83 ; Encounter for immunization Z23 and 31 weeks gestation of Z3A.31 [place] [address] [facility] [id number] [address] [place] [phone] 06 Oct, 2017 Third trimester Z3 4.93 and 28 weeks gestation of Z3A.28 [place] [address] [facility] [id number] [address] [place] [address] Sep, care, subsequent pr egnancy in second trimester Z34.82 ; Diabetes mellitus screening Z13.1 ; 25 weeks gestation of Z3A.25 and Evaluate anatomy not seen on prior sonogram Z04.8 [place] [address] [facility] [id number] [address] [place] [phone] 09 Aug, 2017 care, subsequent pr egnancy in second trimester Z34.82 ; Second trimester Z34.92 and 20 weeks gestation of Z3A.20 [place] [address] [place] [id number] [address] [place] [address] Jul, [place] [address] [place] [id number] [address] [place] [phone] Jul, Normal in multigra michael Z34.80 ; care, subsequent in second trimester Z34.82 and 15 weeks gestation of Z3A.15 [place] [address] [address] [place] [id number] [address] [place] [address] May, Normal in multigra michael Z34.80 and 9 weeks gestation of Z3A.09 [place] [address] [place] [id number] [address] [place] [phone] Apr, [place] [address] [place] [id number] [address] [place] [address] Apr, Encounter for test Z32.00 [place] [address] [place] [id number] [address] [place] [phone] Mar, Hirsutism L68.0 [place] [address] [facility] [id number] [address] [place] [address] Feb, Well woman exam (no gynecolo gical exam) Z00.00 ; control counseling Z30.9 ; Migraine with aura and without status migrainosus, not intractable G43.109 and Hirsutism L68.0 [facility] [address] [id number] [address] [place] [phone] 02 Mar, 2015 Routine follow-up V24.2 ; anemia 648.24 and Contraception management V25.9 [facility] [address] [facility] [id number] [address] [place] [phone] Jan, Supervision of normal first V22.0 [facility] [address] [id number] [address] [place] [id number] Jan, Dental examination V72.2 [facility] [address] [facility] [id number] [address] [place] [phone] Jan, Supervision of normal first V22.0 [facility] [address] [facility] [id number] [address] [place] [phone] Jan, Supervision of normal first V22.0 [facility] [address] [id number] [address] [place] [phone] Dec, [facility] [address] [id number] [address] [place] [phone] Dec, Supervision of normal first V22.0 [facility] [address] [id number] [address] [place] [phone] Dec, [facility] [address] [facility] [id number] [address] [place] [phone] Dec, Supervision of normal first V22.0 [facility] [address] [id number] [address] [place] [phone] Dec, Supervision of normal first V22.0 [facility] [address] [id number] [address] [place] [phone] Dec, [facility] [address] [facility] [id number] [address] [place] [phone] Dec, Supervision of normal first V22.0 [facility] [address] [id number] [address] [place] [id number] November, Dental examination V72.2 [facility] [address] [facility] [id number] [address] [place] [phone] November, Rubella non-immune status, a ntepartum 646.83 and Supervision of normal first V22.0 [facility] [address] [id number] [address] [place] [phone] November, [facility] [address] [id number] [address] [place] [phone] November, Supervision of normal first V22.0 ; Screening for diabetes mellitus V77.1 and Screening, iron deficiency anemia V78.0 [facility] [address] [id number] [address] [place] [id number] 14 Oct, 2014 [facility] [address] [id number] [address] [place] [phone] Oct, [facility] [address] [id number] [address] [place] [phone] Sep, [facility] [address] [id number] [address] [place] [phone] Sep, [facility] [address] [id number] [address] [place] [phone] Sep, [facility] [address] [id number] [address] [place] [phone] Sep, [facility] [address] [id number] [address] [place] [phone] Sep, [facility] [address] [id number] [address] [place] [phone] Sep, [facility] [address] [id number] [address] [place] [phone] Sep, [facility] [address] [id number] [address] [place] [address], [place] [address] 03 Sep, 2014 [facility] [address] [id number] [address] [place] [address], [place] [address] Sep, [facility] [address] [id number] [address] [place] [address], [place] [address] Sep, [facility] [address] [id number] [address] [place] [address], [place] [address] Sep, [facility] [address] [id number] [address] [place] [address], [place] [address] Aug, [facility] [address] [id number] [address] [place] [address], [place] [address] Aug, [facility] [address] [id number] [address] [place] [address], [place] [address] 15 Aug, 2014 [facility] [address] [id number] [address] [place] [address], [place] [address] Aug, [facility] [address] [id number] [address] [place] [address], [place] [address] Aug, [facility] [address] [id number] [address] [place] [address], [place] [address] Aug, [facility] [address] [id number] [address] [place] [address], [place] [address] Jul, [facility] [address] [id number] [address] [place] [address], [place] [address] Jul, [facility] [address] [id number] [address] [place] [address], [place] [address] Jul, [facility] [address] [id number] [address] [place] [address], [place] [address] Jul, [facility] [address] [id number] [address] [place] [address], [place] [address] Jun, [facility] [address] [id number] [address] [place] [address], [place] [address] Jun, [facility] [address] [id number] [address] [place] [phone] Jun, [facility] [address] [id number] [address] [place] [phone] Jun, [facility] [address] [id number] [address] [place] [phone] May, [facility] [address] [id number] [address] [place] [phone] May, [facility] [address] [id number] [address] [place] [phone] Dec, [facility] [address] [id number] [address] [place] [phone] Dec, [facility] [address] [facility] [id number] [address] [place] [phone] Jun, [facility] [address] [facility] [id number] [address] [place] [phone] Jun, IMMUNIZATIONS No Known Immunizations SOCIAL HISTORY Never Assessed REASON FOR VISIT OB 3wk f/u--[facility] PLAN OF CARE Activity Details Follow Up 2 Weeks, 2 Weeks, 2 Weeks Re ason: VITAL SIGNS Height 63 in 2017-10-25 Weight 202.2 lbs 2017-10-25 Temperature 98.5 degrees Fahrenheit 2017-10-25 Heart Rate 86 bpm 2017-10-25 Respiratory Rate 20 2017-10-25 BMI 35.818 kg/m2 2017-10-25 Blood pressure systolic 112 mmHg 2017-10-25 Blood pressure diastolic 68 mmHg 2017-10-25 MEDICATIONS Medication Instructions Dosage Frequency Start Date End Date Duration S tatus Iron 325 (65 Fe) MG Orally Once a day 1 tablet 24h Active Vitamin 27-0.8 MG Active Loratadine 10 MG Orally Once a day 1 tablet 24h Active RESULTS Name Result Date Reference Range UA OB DIP (IN HOUSE) 2017-10-25 Glucose Negative Protein Trace PROCEDURES Procedure Date Ordered Result Body Site URINE-NO MICRO October 25, 2017 INSTRUCTIONS MEDICATIONS ADMINISTERED No Known Medications MEDICAL (GENERAL) HISTORY Type Description Date Medical History Migraines with aura Surgical History oral surgery to remove prima ry teeth and excise permanent teeth from roof of mouth Hospitalization History see surgeries
--- OUTSIDE RECORDS SUMMARY | 2019-11-03 06:03 | XMS REPORT ---
Author Author Ciara LOZANO Organization [facility] Address [address] [place] [address] Care Team Providers Care Supervisor Road Administrator Name Role Phone BLAKE LAXMI Unavailable PROBLEMS Type Condition ICD9-CM Code PKB19-TM Code Onset Dates Condition S tatus SNOMED Code Problem Migraine with aura and without status migrainosu s, not intractable G43.109 Active 8409864 ALLERGIES No Known Allergies ENCOUNTERS Encounter Location Date Diagnosis [address] [address] Jan, Encounter for vis it Z39.2 and control counseling Z30.[address] [address] Dec, care, subsequent pr egnancy in third trimester Z34.83 and 37 weeks gestation of Z3A.[address] [address] Dec, care, subsequent pr egnancy in third trimester Z34.83 ; 36 weeks gestation of Z3A.36 and Antepartum malpresentation of fetus P01.7 [place] [id number] [address] [place] [address] November, care, subsequent pr egnancy in third trimester Z34.83 ; 33 weeks gestation of Z3A.33 and Decreased movements in third trimester, single or unspecified fetus O36.8130 [place] [id number] [address] [address] Oct, care, subsequent pr egnancy in third trimester Z34.83 ; Encounter for immunization Z23 and 31 weeks gestation of Z3A.31 [place] [address] [address] [facility] [id number] [address] [place] [phone] 06 Oct, 2017 Third trimester Z3 4.93 and 28 weeks gestation of Z3A.28 [place] [address] [address] [facility] [id number] [address] [place] [phone] Sep, care, subsequent pr egnancy in second trimester Z34.82 ; Diabetes mellitus screening Z13.1 ; 25 weeks gestation of Z3A.25 and Evaluate anatomy not seen on prior sonogram Z04.8 [place] [address] [address] [facility] [id number] [address] [place] [phone] 09 Aug, 2017 care, subsequent pr egnancy in second trimester Z34.82 ; Second trimester Z34.92 and 20 weeks gestation of Z3A.20 [place] [address] [address] [place] [id number] [address] [place] [address] Jul, [place] [address] [address] [place] [id number] [address] [place] [address] Jul, Normal in multigra michael Z34.80 ; care, subsequent in second trimester Z34.82 and 15 weeks gestation of Z3A.15 [place] [address] [address] [place] [id number] [address] [address] May, Normal in multigra michael Z34.80 and 9 weeks gestation of Z3A.09 [place] [address] [address] [place] [id number] [address] [place] [address] Apr, [place] [address] [address] [place] [id number] [address] [address] Apr, Encounter for test Z32.00 [place] [address] [address] [place] [id number] [address] [address] Mar, Hirsutism L68.0 [place] [address] [address] [facility] [id number] [address] [place] [phone] Feb, Well woman exam (no gynecolo gical exam) Z00.00 ; control counseling Z30.9 ; Migraine with aura and without status migrainosus, not intractable G43.109 and Hirsutism L68.0 [facility] [address] [id number] [address] [place] [phone] 02 Mar, 2015 Routine follow-up V24.2 ; anemia 648.24 and Contraception management V25.9 [facility] [address] [facility] [id number] [address] [place] [phone] Jan, Supervision of normal first V22.0 [facility] [address] [id number] [address] [place] [id number] Jan, Dental examination V72.2 [facility] [address] [facility] [id number] [address] [place] [phone] Jan, Supervision of normal first V22.0 [facility] [address] [facility] [id number] [address] [phone] Jan, Supervision of normal first V22.0 [facility] [address] [id number] [address] [address] Dec, [facility] [address] [id number] [address] [address] Dec, Supervision of normal first V22.0 [facility] [address] [id number] [address] [address] Dec, [facility] [address] [facility] [id number] [address] [phone] Dec, Supervision of normal first V22.0 [facility] [address] [id number] [address] [place] [address] Dec, Supervision of normal first V22.0 [facility] [address] [id number] [address] [phone] Dec, [facility] [address] [facility] [id number] [address] [phone] Dec, Supervision of normal first V22.0 [facility] [address] [id number] [address] [place] [id number] November, Dental examination V72.2 [facility] [address] [facility] [id number] [address] [place] [address] November, Rubella non-immune status, a ntepartum 646.83 and Supervision of normal first V22.0 [facility] [address] [id number] [address] [phone] November, [facility] [address] [id number] [address] [place] [address] November, Supervision of normal first V22.0 ; Screening for diabetes mellitus V77.1 and Screening, iron deficiency anemia V78.0 [facility] [address] [id number] [address] [phone] 14 Oct, 2014 [facility] [address] [id number] [address] [phone] Oct, [facility] [address] [id number] [address] [phone] Sep, [facility] [address] [id number] [address] [address] Sep, [facility] [address] [id number] [address] [address] Sep, [facility] [address] [id number] [address] [phone] Sep, [facility] [address] [id number] [address] [phone] Sep, [facility] [address] [id number] [address] [address] Sep, [facility] [address] [id number] [address] [address] Sep, [facility] [address] [id number] [address] [place] [address], [place] [address] 03 Sep, 2014 [facility] [address] [id number] [address] [place] [address], [place] [address] Sep, [facility] [address] [id number] [address] [place] [address], [place] [address] Sep, [facility] [address] [id number] [address] [place] [address], [place] [address] Sep, [facility] [address] [id number] [address] [place] [address], [place] [address] Aug, [facility] [address] [id number] [address] [place] [address], [place] [address] Aug, [facility] [address] [id number] [address] [place] [address], [place] [address] 15 Aug, 2014 [facility] [address] [id number] [address] [place] [address], [place] [address] Aug, [facility] [address] [id number] [address] [place] [address], [place] [address] Aug, [facility] [address] [id number] [address] [place] [address], [place] [address] Aug, [facility] [address] [id number] [address] [place] [address], [place] [address] Jul, [facility] [address] [id number] [address] [place] [address], [place] [address] Jul, [facility] [address] [id number] [address] [place] [address], [place] [address] Jul, [facility] [address] [id number] [address] [place] [address], [place] [address] Jul, [facility] [address] [id number] [address] [place] [address], [place] [address] Jun, [facility] [address] [id number] [address] [place] [address], [place] [address] Jun, [facility] [address] [id number] [address] [place] [address] Jun, [facility] [address] [id number] [address] [address] Jun, [facility] [address] [id number] [address] [phone] May, [facility] [address] [id number] [address] [address] May, [facility] [address] [id number] [address] [address] Dec, [facility] [address] [id number] [address] [address] Dec, [facility] [address] [facility] [id number] [address] [address] Jun, [facility] [address] [facility] [id number] [address] [place] [address] Jun, IMMUNIZATIONS Vaccine Route Administration Date Status TDAP (BOOSTRIX) IM Intramuscular November 15, 2017 Administered SOCIAL HISTORY Never Assessed REASON FOR VISIT OB 2wk f/u--tcuppettRn PLAN OF CARE Activity Details Follow Up 2 Weeks Reason: VITAL SIGNS Height 63 in 2017-11-15 Weight 207.6 lbs 2017-11-15 Temperature 97.8 degrees Fahrenheit 2017-11-15 Heart Rate 100 bpm 2017-11-15 Respiratory Rate 18 2017-11-15 BMI 36.775 kg/m2 2017-11-15 Blood pressure systolic 102 mmHg 2017-11-15 Blood pressure diastolic 66 mmHg 2017-11-15 MEDICATIONS Medication Instructions Dosage Frequency Start Date End Date Duration S tatus Iron 325 (65 Fe) MG Orally Once a day 1 tablet 24h Active Vitamin 27-0.8 MG Active Loratadine 10 MG Orally Once a day 1 tablet 24h Active RESULTS Name Result Date Reference Range UA OB DIP (IN HOUSE) 2017-11-15 Glucose Negative Protein Negative PROCEDURES Procedure Date Ordered Result Body Site URINE-NO MICRO November 15, 2017 TDAP (BOOSTRIX) November 15, 2017 SINGLE IMMUNIZATION ADMIN November 15, 2017 INSTRUCTIONS MEDICATIONS ADMINISTERED No Known Medications MEDICAL (GENERAL) HISTORY Type Description Date Medical History Migraines with aura Surgical History oral surgery to remove prima ry teeth and excise permanent teeth from roof of mouth Hospitalization History see surgeries
--- OUTSIDE RECORDS SUMMARY | 2019-11-03 06:03 | XMS REPORT ---
Author Author Ciara LOZANO [facility] Address [address] [place] [address] Care Team Providers Care Apartment Manager Name Role Phone BLAKE LAXMI Unavailable PROBLEMS Type Condition ICD9-CM Code LMC66-OK Code Onset Dates Condition S tatus SNOMED Code Problem care, subsequent in third trimester Z34.83 Active 145118616 Problem Migraine with aura and without status migrainosu s, not intractable G43.109 Active 6995614 Problem Other specified diseases and conditions complicating , childbirth and the puerperium O99.89 Active 348944068 Problem Underimmunization status Z28.3 Activ e [id number] ALLERGIES No Information ENCOUNTERS Encounter Location Date Diagnosis [place] [address] [address] [place] [id number] [address] [place] [address] Jan, [place] [address] [address] [place] [id number] [address] [place] [address] Dec, care, subsequent pr egnancy in third trimester Z34.83 and 37 weeks gestation of Z3A.37 [place] [address] [facility] [id number] [address] [place] [address] Dec, care, subsequent pr egnancy in third trimester Z34.83 ; 36 weeks gestation of Z3A.36 and Antepartum malpresentation of fetus P01.7 [place] [address] [address] [place] [id number] [address] [place] [address] November, care, subsequent pr egnancy in third trimester Z34.83 ; 33 weeks gestation of Z3A.33 and Decreased movements in third trimester, single or unspecified fetus O36.8130 [place] [address] [address] [place] [id number] [address] [place] [address] Oct, care, subsequent pr egnancy in third trimester Z34.83 ; Encounter for immunization Z23 and 31 weeks gestation of Z3A.31 [place] [address] [address] [place] [id number] [address] [place] [address] Oct, Third trimester Z3 4.93 and 28 weeks gestation of Z3A.28 [place] [address] [address] [place] [id number] [address] [place] [address] Sep, care, subsequent pr egnancy in second trimester Z34.82 ; Diabetes mellitus screening Z13.1 ; 25 weeks gestation of Z3A.25 and Evaluate anatomy not seen on prior sonogram Z04.8 [place] [address] [address] [place] [id number] [address] [place] [phone] 09 Aug, 2017 care, subsequent pr egnancy in second trimester Z34.82 ; Second trimester Z34.92 and 20 weeks gestation of Z3A.20 [place] [address] [address] [place] [id number] [address] [place] [address] Jul, [place] [address] [address] [place] [id number] [address] [place] [address] Jul, Normal in multigra michael Z34.80 ; care, subsequent in second trimester Z34.82 and 15 weeks gestation of Z3A.15 [place] [address] [address] [place] [id number] [address] [place] [address] May, Normal in multigra michael Z34.80 and 9 weeks gestation of Z3A.09 [place] [address] [address] [place] [id number] [address] [place] [address] Apr, [place] [address] [address] [place] [id number] [address] [place] [address] Apr, Encounter for test Z32.00 [place] [address] [address] [place] [id number] [address] [place] [address] Mar, Hirsutism L68.0 [place] [address] [id number] [address] [place] [address] Feb, Well woman exam (no gynecolo gical exam) Z00.00 ; control counseling Z30.9 ; Migraine with aura and without status migrainosus, not intractable G43.109 and Hirsutism L68.0 [facility] [address] [id number] [address] [place] [address] Mar, Routine follow-up V24.2 ; anemia 648.24 and Contraception management V25.9 [facility] [address] [facility] [id number] [address] [place] [address] Jan, Supervision of normal first V22.0 [facility] [address] [id number] [address] [place] [id number] Jan, Dental examination V72.2 [facility] [address] [facility] [id number] [address] [place] [address] Jan, Supervision of normal first V22.0 [facility] [address] [facility] [id number] [address] [place] [address] Jan, Supervision of normal first V22.0 [facility] [address] [facility] [id number] [address] [place] [address] Dec, [facility] [address] [id number] [address] [place] [address] Dec, Supervision of normal first V22.0 [facility] [address] [id number] [address] [place] [phone] Dec, [facility] [address] [id number] [address] [place] [address] Dec, Supervision of normal first V22.0 [facility] [address] [id number] [address] [place] [address] Dec, Supervision of normal first V22.0 [facility] [address] [id number] [address] [place] [address] Dec, [facility] [address] [id number] [address] [place] [address] Dec, Supervision of normal first V22.0 [facility] [address] [id number] [address] [place] [id number] November, Dental examination V72.2 [facility] [address] [id number] [address] [place] [address] November, Rubella non-immune status, a ntepartum 646.83 and Supervision of normal first V22.0 [facility] [address] [id number] [address] [place] [phone] November, [facility] [address] [facility] [id number] [address] [place] [address] November, Supervision of normal first V22.0 ; Screening for diabetes mellitus V77.1 and Screening, iron deficiency anemia V78.0 [facility] [address] [id number] [address] [place] [address] Oct, [facility] [address] [id number] [address] [place] [address] Oct, [facility] [address] [id number] [address] [place] [phone] Sep, [facility] [address] [id number] [address] [place] [phone] Sep, [facility] [address] [id number] [address] [place] [phone] Sep, [facility] [address] [id number] [address] [place] [phone] Sep, [facility] [address] [id number] [address] [place] [address] Sep, [facility] [address] [id number] [address] [place] [phone] Sep, [facility] [address] [id number] [address] [place] [address], [place] [address] Sep, [facility] [address] [id number] [address] [place] [address], [place] [address] Sep, [facility] [address] [id number] [address] [place] [address], [place] [address] Sep, [facility] [address] [id number] [address] [place] [address], [place] [address] Sep, [facility] [address] [id number] [address] [place] [address], [place] [address] Sep, [facility] [address] [id number] [address] [place] [address], [place] [address] Aug, [facility] [address] [id number] [address] [place] [address], [place] [address] Aug, [facility] [address] [id number] [address] [place] [address], [place] [address] Aug, [facility] [address] [id number] [address] [place] [address], [place] [address] Aug, [facility] [address] [id number] [address] [place] [address], [place] [address] Aug, [facility] [address] [id number] [address] [place] [address], [place] [address] Aug, [facility] [address] [id number] [address] [place] [address] Jul, [facility] [address] [id number] [address] [place] [address], [place] [address] Jul, [facility] [address] [id number] [address] [place] [address], [place] [address] Jul, [facility] [address] [id number] [address] [place] [address], [place] [address] Jul, [facility] [address] [id number] [address] [place] [phone] 17 Jun, 2014 [facility] [address] [id number] [address] [place] [phone] 16 Jun, 2014 [facility] [address] [id number] [address] [place] [phone] Jun, [facility] [address] [id number] [address] [place] [phone] Jun, [facility] [address] [id number] [address] [place] [phone] May, [facility] [address] [id number] [address] [place] [address] May, [facility] [address] [id number] [address] [place] [address] Dec, [facility] [address] [id number] [address] [place] [phone] Dec, [facility] [address] [id number] [address] [place] [phone] Jun, [facility] [address] [id number] [address] [place] [address] Jun, IMMUNIZATIONS No Known Immunizations SOCIAL HISTORY Never Assessed REASON FOR VISIT OB f/u-4 wk-VILMA Mistry PLAN OF CARE Activity Details Follow Up 3 Weeks, 3 Weeks Reason: VITAL SIGNS Height 63 in 2017-10-04 Weight 196 lbs 2017-10-04 Temperature 97.9 degrees Fahrenheit 2017-10-04 Heart Rate 94 bpm 2017-10-04 Respiratory Rate 20 2017-10-04 BMI 34.72 kg/m2 2017-10-04 Blood pressure systolic 110 mmHg 2017-10-04 Blood pressure diastolic 70 mmHg 2017-10-04 MEDICATIONS Unknown Medications RESULTS No Results PROCEDURES Procedure Date Ordered Result Body Site COMPLETE CBC W/AUTO DIFF WBC October 04, 2017 GLUCOSE TEST October 04, 2017 URINE-NO MICRO October 04, 2017 VENIPUNCT, ROUTINE* October 04, 2017 INSTRUCTIONS MEDICATIONS ADMINISTERED No Known Medications MEDICAL (GENERAL) HISTORY Type Description Date Medical History Migraines with aura Surgical History oral surgery to remove prima ry teeth and excise permanent teeth from roof of mouth Hospitalization History see surgeries
--- OUTSIDE RECORDS SUMMARY | 2019-11-03 06:03 | XMS REPORT ---
Author Author Ciara PEDERSEN [facility] [place] eClinicalWorks Address Unknown Phone Unavailable Care Team Providers Care [employer] Stress Engineer Name Role Phone HANANE PEDERSEN CP Unavailable Allergies No Known Allergies Problems Problem Type Condition ICD-9 Code Onset Dates Condition Statu s Problem Rubella non-immune status, antepartum 646.83 Active Problem Supervision of normal first V22.0 Active Problem Anemia complicating 648.20 Active Problem examination or test, positive result V72.42 Active Assessment Dental examination V72.2 Active Medications No Known Medications Procedures Procedure Coding System Code Date RESIN COMPOS - 2 SURFACES POSTERIOR CPT-4 D2392 January 28, 2015 RESIN COMPOS - 2 SURFACES POSTERIOR CPT-4 D2392 January 28, 2015 RESIN COMPOS - 1 SURFACE POSTERIOR CPT-4 D2391 January 28, 2015 RESIN COMPOS - 3 SURFACES POSTERIOR CPT-4 D2393 January 28, 2015 Results No Known Results Summary Purpose eClinicalWorks Submission
--- OUTSIDE RECORDS SUMMARY | 2019-11-03 06:04 | XMS REPORT | Continuity of Care Document ---
Author Organization Unknown Address Unknown Phone Unavailable Allergies Active Description Code Type Severity Reaction Onset Reported/Identified Relationship to Patient Clinical Status Yes No Known Drug Allergies [id number] Drug Allergy Unknown N/A 02/10/2012 Medications There is no data. Problems Date Dx Coded Attending Type Code Diagnosis Diagnosed By 02/11/2012 Ot 882.0 OPEN WOUND OF HAND 02/11/2012 Ot E000.8 OTH ER EXTERNAL CAUSE STATUS 02/11/2012 Ot E849.0 ACC IDENT IN HOME 02/11/2012 Ot E888.0 FAL L STRIKING SHARP OBJECT 02/11/2012 Ot V06.1 [id number], COMBINED [ 02/25/2012 Ot V58.32 ENC OUNTER FOR REMOVAL OF SUTURES 07/08/2013 RAMSEY INVENTORY ACCOUNTANT, SKIP R 461.9 SINUSITIS ACUTE 07/08/2013 RAMSEY INVENTORY ACCOUNTANT, SKIP R 786.2 COUGH 07/08/2013 CLOTILDE INVENTORY ACCOUNTANT, PATRICIA A 46 1.9 SINUSITIS ACUTE 07/08/2013 CLOTILDE INVENTORY ACCOUNTANT, PATRICIA A 78 6.2 COUGH 07/08/2013 CLOTILDE INVENTORY ACCOUNTANT, PATRICIA A 46 1.9 SINUSITIS ACUTE 07/08/2013 CLOTILDE INVENTORY ACCOUNTANT, PATRICIA A 78 6.2 COUGH 07/08/2013 CLOTILDE INVENTORY ACCOUNTANT, PATRICIA A 46 1.9 SINUSITIS ACUTE 07/08/2013 CLOTILDE INVENTORY ACCOUNTANT, PATRICIA A 78 6.2 COUGH 07/08/2013 LAXMI LOZANO MD N 461 .9 SINUSITIS ACUTE 07/08/2013 LAXMI LOZANO MD N 786 .2 COUGH 07/08/2013 LAXMI LOZANO MD N 461 .9 SINUSITIS ACUTE 07/08/2013 LAXMI LOZANO MD N 786 .2 COUGH 07/08/2013 LAXMI LOZANO MD N 461 .9 SINUSITIS ACUTE 07/08/2013 LAXMI LOZANO MD N 786 .2 COUGH 07/08/2013 LAXMI LOZANO MD 461 .9 SINUSITIS ACUTE 07/08/2013 LAXMI LOZANO MD N 786 .2 COUGH 01/12/2014 PATRICIA MABRY APRN A V2 6.9 PROCREATIVE MANAGEMENT 01/12/2014 PATRICIA MABRY APRN A V2 6.9 PROCREATIVE MANAGEMENT 01/12/2014 PATRICIA MABRY APRN A V2 6.9 PROCREATIVE MANAGEMENT 01/12/2014 LAXMI LOZANO MD N V26 .9 PROCREATIVE MANAGEMENT 01/12/2014 LAXMI LOZANO MD V26 .9 PROCREATIVE MANAGEMENT 01/12/2014 LAXMI LOZANO MD N V26 .9 PROCREATIVE MANAGEMENT 01/12/2014 LAXMI LOZANO MD V26 .9 PROCREATIVE MANAGEMENT 06/14/2014 PATRICIA MABRY APRN V72.42 EXAMINATION OR TEST POSITIVE RESULT 06/14/2014 PATRICIA MABRY APRN A V72.42 EXAMINATION OR TEST POSITIVE RESULT 06/14/2014 LAXMI LOZANO MD N V72 .42 EXAMINATION OR TEST POSITIVE RESULT 06/14/2014 LAXMI LOZANO MD V72 .42 EXAMINATION OR TEST POSITIVE RESULT 06/14/2014 LAXMI LOZANO MD V72 .42 EXAMINATION OR TEST POSITIVE RESULT 06/14/2014 LAXMI LOZANO MD N V72 .42 EXAMINATION OR TEST POSITIVE RESULT 07/05/2014 PATRICIA MABRY APRN V2 2.0 , NORMAL FIRST 07/05/2014 PATRICIA MABRY APRN A V2 2.0 , NORMAL FIRST 07/05/2014 LAXMI LOZANO MD N V22 .0 , NORMAL FIRST 07/05/2014 LAXMI LOZANO MD N V22 .0 , NORMAL FIRST 07/05/2014 LAXMI LOZANO MD V22 .0 , NORMAL FIRST 07/05/2014 LAXMI LOZANO MD N V22 .0 , NORMAL FIRST 07/27/2014 PATRICIA MABRY APRN Ot 649.63 07/27/2014 PATRICIA MABRY APRN Ot 649.63 08/02/2014 PATRICIA MABRY APRN V7 4.5 STD SCREEN 08/02/2014 DILSHAD MABRY APRNSIDNEY Barnes V7 6.2 CERVICAL CANCER SCREENING (PAP SMEAR) 08/02/2014 LAXMI LOZANO MD V74 .5 STD SCREEN 08/02/2014 LAXMI LOZANO MD V76 .2 CERVICAL CANCER SCREENING (PAP SMEAR) 08/02/2014 LAXMI LOZANO MD V74 .5 STD SCREEN 08/02/2014 LAXMI LOZANO MD V76 .2 CERVICAL CANCER SCREENING (PAP SMEAR) 08/02/2014 LAXMI LOZANO MD V74 .5 STD SCREEN 08/02/2014 LAXMI LOZANO MD V76 .2 CERVICAL CANCER SCREENING (PAP SMEAR) 08/02/2014 LAXMI LOZANO MD V74 .5 STD SCREEN 08/02/2014 LAXMI LOZANO MD V76 .2 CERVICAL CANCER SCREENING (PAP SMEAR) 09/15/2014 PATRICIA MABRY APRN Ot 649.63 09/16/2014 Ot V28.81 09/16/2014 Ot V28.81 10/22/2014 Ot V28.81 11/05/2014 Ot V28.81 11/05/2014 Ot V28.81 11/05/2014 Ot V28.81 02/04/2015 Ot V28.81 02/04/2015 Ot V28.81 02/06/2015 LAXMI LOZANO MD Ot 285 .9 ANEMIA NOS 02/06/2015 LAXMI LOZANO MD Ot 648.21 ANEMIA-DELIVERED 02/06/2015 LAXMI LOZANO MD Ot 648.22 ANEMIA-DELIVERED W P/P 02/06/2015 LAXMI LOZANO MD Ot 658.21 PROLONG RUPT MEMB-DELIV 02/06/2015 LAXMI LOZANO MD Ot 663.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 NEC-DELIV 02/06/2015 LAXMI LOZANO MD Ot 664.11 DEL W 2 DEG LACERAT-DEL 02/06/2015 LAXMI LOZANO MD Ot 665.41 HIGH VAGINAL LACER-DELIV 02/06/2015 LAXMI LOZANO MD Ot V06 .4 [id number]-[id number] 02/06/2015 LAXMI LOZANO MD Ot V27 .0 DELIVER-SINGLE LIVEBORN 04/21/2015 Ot V28.81 07/18/2015 PATRICIA MABRY APRN Ot 649.63 07/18/2015 Ot V28.81 07/18/2015 Ot V28.81 07/18/2015 Ot V28.81 07/18/2015 Ot V28.81 07/18/2015 Ot V28.81 07/18/2015 Ot V28.81 07/18/2015 Ot V28.81 12/26/2015 Ot V28.81 ENC OUNTER FOR ANATOMIC SURVEY 12/26/2015 Ot V28.81 ENC OUNTER FOR ANATOMIC SURVEY 06/06/2016 Ot V28.81 ENC OUNTER FOR ANATOMIC SURVEY 06/06/2016 Ot V28.81 ENC OUNTER FOR ANATOMIC SURVEY 06/06/2016 Ot V28.81 ENC OUNTER FOR ANATOMIC SURVEY 06/11/2016 Ot V28.81 ENC OUNTER FOR ANATOMIC SURVEY 06/26/2017 LAXMI LOZANO MD Ot Z34.80 ENCOUNTER FOR SUPRVSN OF NORMAL PREGNANC 09/05/2017 Ot V28.81 ENC OUNTER FOR ANATOMIC SURVEY 09/05/2017 Ot V28.81 ENC OUNTER FOR ANATOMIC SURVEY 09/05/2017 LAXMI LOZANO MD Ot Z34.80 ENCOUNTER FOR SUPRVSN OF NORMAL PREGNANC 09/08/2017 LAXMI LOZANO MD Ot Z36.89 ENCOUNTER FOR OTHER SPECIFIED 09/08/2017 LAXMI LOZANO MD Ot Z3A.22 22 WEEKS GESTATION OF 09/25/2017 LAXMI LOZANO MD Ot Z36.89 ENCOUNTER FOR OTHER SPECIFIED 09/25/2017 LAXMI LOZANO MD Ot Z3A.22 22 WEEKS GESTATION OF 10/18/2017 Ot V28.81 ENC OUNTER FOR ANATOMIC SURVEY 10/18/2017 Ot V28.81 ENC OUNTER FOR ANATOMIC SURVEY 10/18/2017 LAXMI LOZANO MD Ot Z34.80 ENCOUNTER FOR SUPRVSN OF NORMAL PREGNANC 10/18/2017 LAXMI LOZANO MD Ot Z36.89 ENCOUNTER FOR OTHER SPECIFIED 10/18/2017 LAXMI LOZANO MD Ot Z3A.22 22 WEEKS GESTATION OF 10/21/2017 LAXMI LOZANO MD Ot Z04 .8 ENCOUNTER FOR EXAMINATION AND OBSERVATIO 10/21/2017 LAXMI LOZANO MD Ot Z3A.27 27 WEEKS GESTATION OF 12/09/2017 LAXMI LOZANO MD Ot Z36.89 ENCOUNTER FOR OTHER SPECIFIED 12/09/2017 LAXMI LOZANO MD Ot Z3A.22 22 WEEKS GESTATION OF 12/09/2017 LAXMI LOZANO MD Ot Z04 .8 ENCOUNTER FOR EXAMINATION AND OBSERVATIO 12/09/2017 LAXMI LOZANO MD Ot Z3A.27 27 WEEKS GESTATION OF 12/23/2017 Ot V28.81 ENC OUNTER FOR ANATOMIC SURVEY 12/23/2017 Ot V28.81 ENC OUNTER FOR ANATOMIC SURVEY 12/23/2017 LAXMI LOZANO MD Ot Z34.80 ENCOUNTER FOR SUPRVSN OF NORMAL PREGNANC 12/23/2017 LAXMI LOZANO MD Ot Z36.89 ENCOUNTER FOR OTHER SPECIFIED 12/23/2017 LAXMI LOZANO MD Ot Z3A.22 22 WEEKS GESTATION OF 12/23/2017 LAXMI LOZANO MD Ot Z04 .8 ENCOUNTER FOR EXAMINATION AND OBSERVATIO 12/23/2017 LAXMI LOZANO MD Ot Z3A.27 27 WEEKS GESTATION OF 12/30/2017 LAXMI LOZANO MD Ot P01 .7 AFFECTED BY MALPRESENTATION BEFO 12/30/2017 LAXMI LOZANO MD Ot Z3A.37 37 WEEKS GESTATION OF 12/30/2017 LAXMI LOZANO MD Ot P01 .7 AFFECTED BY MALPRESENTATION BEFO 12/30/2017 LAXMI LOZANO MD Ot Z3A.37 37 WEEKS GESTATION OF 12/30/2017 LAXMI LOZANO MD Ot O32.9XX0 MATERNAL CARE FOR MALPRESENTATION OF FET 12/30/2017 LAXMI LOZANO MD Ot Z3A.37 37 WEEKS GESTATION OF 12/30/2017 LAXMI LOZANO MD Ot O32.9XX0 MATERNAL CARE FOR MALPRESENTATION OF FET 12/30/2017 LAXMI LOZANO MD Ot Z3A.37 37 WEEKS GESTATION OF 12/31/2017 TIMOTHY MENDOZA MD Ot O70. 0 FIRST DEGREE PERINEAL LACERATION DURING 12/31/2017 TIMOTHY MENDOZA MD, Ot Z23 ENCOUNTER FOR IMMUNIZATION 12/31/2017 TIMOTHY MENDOZA MD, Ot Z37. 0 SINGLE LIVE 12/31/2017 TIMOTHY MENDOZA MD, Ot Z3A. 37 37 WEEKS GESTATION OF 01/01/2018 LAXMI LOZANO MD Ot O32.9XX0 MATERNAL CARE FOR MALPRESENTATION OF FET 01/01/2018 LAXMI LOZANO MD Ot Z3A.37 37 WEEKS GESTATION OF 01/02/2018 LAXMI LOZANO MD Ot O32.9XX0 MATERNAL CARE FOR MALPRESENTATION OF FET 01/02/2018 LAXMI LOZANO MD Ot Z3A.37 37 WEEKS GESTATION OF 01/15/2018 LAXMI LOZANO MD Ot O32.9XX0 MATERNAL CARE FOR MALPRESENTATION OF FET 01/15/2018 LAXMI LOZANO MD Ot Z3A.37 37 WEEKS GESTATION OF 03/21/2018 LAXMI LOZANO MD Ot O32.9XX0 MATERNAL CARE FOR MALPRESENTATION OF FET 03/21/2018 LAXMI LOZANO MD Ot Z3A.37 37 WEEKS GESTATION OF 03/21/2018 LAXMI LOZANO MD Ot Z04 .8 ENCOUNTER FOR EXAMINATION AND OBSERVATIO 03/21/2018 LAXMI LOZANO MD Ot Z3A.27 27 WEEKS GESTATION OF 03/21/2018 LAXMI LOZANO MD Ot Z36.89 ENCOUNTER FOR OTHER SPECIFIED 03/21/2018 LAXMI LOZANO MD Ot Z3A.22 22 WEEKS GESTATION OF 06/04/2018 LAXMI LOZANO MD Ot O32.9XX0 MATERNAL CARE FOR MALPRESENTATION OF FET 06/04/2018 LAXMI LOZANO MD Ot Z3A.37 37 WEEKS GESTATION OF 06/04/2018 LAXMI LOZANO MD Ot Z04 .8 ENCOUNTER FOR EXAMINATION AND OBSERVATIO 06/04/2018 LAXMI LOZANO MD Ot Z3A.27 27 WEEKS GESTATION OF 06/04/2018 BLAKE HEARN, LAXMI Vallecillo Ot Z36.89 ENCOUNTER FOR OTHER SPECIFIED 06/04/2018 LAXMI LOZANO MD, Ot Z3A.22 22 WEEKS GESTATION OF Procedures Code Description [place] [address] ROUT INE VENIPUNCTURE 07/05/2014 82287 UA L KATRIN DIP 07/05/2014 74968 CBC 07/06/2014 61258 TSH 07/06/2014 44890 HEP B SURFACE ANTIGEN (RML) 07/06/2014 12952 HIV ANTIBODIES (RML) 07/06/2014 0891090 AN TIBODY SCREEN (RESULT ONLY) 07/07/2014 43211 BLOO D TYPE/Rh FACTOR 07/07/2014 55435 RUBE LLA ANTIBODY, IGG 07/07/2014 10236 CULT URE URINE 07/07/2014 05859 US O B - EARLY <14 WEEKS 07/07/2014 84651 SYPH ILLIS TEST 07/07/2014 34341 ANTI BODY SCREEN (order) 07/07/2014 60909 UA OB DIP 08/02/2014 89358 TRIC HOMONAS (IN-HOUSE) 08/02/2014 06246 CULT URE UROGENITAL 08/04/2014 51696 GC/C HLAM PROBE (STATE) 08/04/2014 77940 PAP SMEAR 08/04/2014 Q0091 PAP SMEAR OBTAIN SMEAR 08/04/2014 38094 ROUT INE VENIPUNCTURE 09/01/2014 07664 UA OB DIP 09/01/2014 89379 US O B - COMPLETE >14 WEEKS 09/02/2014 TETRA TETR A SCREEN 09/02/2014 00367 UA L KATRIN DIP 10/27/2014 19029 UA W / CULTURE IF INDICATED 11/05/2014 75.69 REPA IR OB LACERATION NEC 02/03/2015 [id number] RE PAIR PERINEUM SKIN, EXTERNAL APPROACH 12/29/2017 [id number] DE LIVERY OF PRODUCTS OF CONCEPTION, EXTE 12/29/2017 Results Test Result Range Comp. Metabolic Panel (14) - 03/30/16 11 :43 Glucose, Serum 76 mg/dL 65-99 BUN 12 mg/dL 6-20 Creatinine, Serum 0.73 mg/dL 0.57-1.00 eGFR If NonAfricn Am 116 mL/min/1.73 >59 eGFR If Africn Am 133 mL/min/1.73 >5 9 BUN/Creatinine Ratio 16 8-20 Sodium, Serum 141 mmol/L 134-144 Potassium, Serum 4.5 mmol/L 3.5-5.2 Chloride, Serum 101 mmol/L 97-108 Carbon Dioxide, Total 26 mmol/L 18-29 Calcium, Serum 9.2 mg/dL 8.7-10.2 Protein, Total, Serum 7.0 g/dL 6.0-8.5 Albumin, Serum 4.3 g/dL 3.5-5.5 Globulin, Total 2.7 g/dL 1.5-4.5 A/G Ratio 1.6 1.1-2.5 Bilirubin, Total 0.5 mg/dL 0.0-1.2 Alkaline Phosphatase, S 90 IU/L 39-117 AST (SGOT) 18 IU/L 0-40 ALT (SGPT) 26 IU/L 0-32 Lipid Panel - 03/30/16 11:43 Cholesterol, Total 199 mg/dL 100-199 Triglycerides 96 mg/dL 0-149 HDL Cholesterol 71 mg/dL >39 VLDL Cholesterol Amrik 19 mg/dL 5-40 LDL Cholesterol Calc 109 mg/dL 0-99 Testosterone, Total, LC/MS - 03/30/16 11 :43 Testosterone, Total, LC/MS 26 ng/dL TSH - 03/30/16 11:43 TSH 1.010 uIU/mL 0.450-4.500 Insulin - 03/30/16 11:43 Insulin 7.7 uIU/mL 2.6-24.9 CULTURE, GENITAL - 06/18/17 14:25 CULTURE, GENITAL SEE NOTE [facility] SUREPATH PAP RFX HPV mRNA E6/E7 - 14:25 CLINICAL INFORMATION: NR LMP: NR PREV. PAP: NR PREV. BX: NR SOURCE: [facility] STATEMENT OF ADEQUACY: [facility] INTERPRETATION/RESULT: [facility] DESK SERGEANT: [facility] RUBELLA IMMUNE STATUS - 07/26/17 14:48 RUBELLA ANTIBODY (IGG) <0.90 index [facility] GLUCOSE TAE 1 HOUR - 10/04/17 16:07 GLUCOSE, POSTPRANDIAL/ 1 HOUR 70 mg/dL See Note: CBC - 10/04/17 16:07 WHITE BLOOD CELL COUNT 8.3 Thousand/uL 3 .8-10.8 RED BLOOD CELL COUNT 3.70 Million/uL 3.8 0-5.10 HEMOGLOBIN 11.0 g/dL 11.7-15.5 HEMATOCRIT 32.0 % 35.0-45.0 MCV 86.5 fL 80.0-100.0 MCH 29.7 pg 27.0-33.0 MCHC 34.4 g/dL 32.0-36.0 RDW 12.9 % 11.0-15.0 PLATELET COUNT 245 Thousand/uL 140-400 MPV 9.3 fL 7.5-12.5 ABSOLUTE NEUTROPHILS 6208 cells/uL 1500- 7800 ABSOLUTE LYMPHOCYTES 1494 cells/uL 850-3 900 ABSOLUTE MONOCYTES 515 cells/uL 200-950 ABSOLUTE EOSINOPHILS 66 cells/uL 15-500 ABSOLUTE BASOPHILS 17 cells/uL 0-200 NEUTROPHILS 74.8 % NRG LYMPHOCYTES 18.0 % NRG MONOCYTES 6.2 % NRG EOSINOPHILS 0.8 % NRG BASOPHILS 0.2 % NRG CULTURE, GROUP B STREP (VAGINAL) - 12/20 14:16 STREPTOCOCCUS, GROUP B CULTURE SEE NOTE NRG Complete blood count (CBC) with automate d white blood cell (WBC) differential - 12/29/17 18:43 Blood leukocytes automated count (number/volume) 13.7 10*3/uL 4.3-11.0 Blood erythrocytes automated count (number/volume) 3.57 10*6/uL 4.35-5.85 Venous blood hemoglobin measurement (mass/volume) 10.9 g/dL 11.5-16.0 Blood hematocrit (volume fraction) 33 % 35-52 Automated erythrocyte mean corpuscular volume 91 [ foz_us] 80-99 Automated erythrocyte mean corpuscular h emoglobin (mass per erythrocyte) 31 pg 25-34 Automated erythrocyte mean corpuscular h emoglobin concentration measurement (mass/volume) 34 g/dL 32-36 Automated erythrocyte distribution width ratio 15. 0 % 10.0- 14.5 Automated blood platelet count (count/volume) 191 10*3/uL 130-400 Automated blood platelet mean volume measurement 9.0 [foz_us] 7.4-10.4 Automated blood neutrophils/100 leukocytes 94 % 42-75 Automated blood lymphocytes/100 leukocytes 3 % 12-44 Blood monocytes/100 leukocytes 3 % 0-12 Automated blood eosinophils/100 leukocytes 0 % 0-10 Automated blood basophils/100 leukocytes 0 % 0-10 Blood neutrophils automated count (number/volume) 12.9 10*3 1.8-7.8 Blood lymphocytes automated count (number/volume) 0.5 10*3 1.0-4.0 Blood monocytes automated count (number/volume) 0. 3 10*3 0.0-1.0 Automated eosinophil count 0.0 10*3/uL 0 .0-0.3 Automated blood basophil count (count/volume) 0.0 10*3/uL 0.0-0.1 Blood manual differential performed dete ction - 12/29/17 18:43 Blood monocytes/100 leukocytes 2 % NRG Manual blood segmented neutrophils/100 leukocytes 82 % NRG Blood band neutrophils/100 leukocytes 12 % NRG Manual blood lymphocytes/100 leukocytes 4 % NRG Blood erythrocyte morphology finding identification NORMAL NRG Blood type T Indirect antibody screen pa nancy - 12/29/17 18:43 ABO+Rh group AP NRG Transfusion band number [id number] NRG Blood group antibody screen NEGATIVE NR G Complete blood count (CBC) with automate d white blood cell (WBC) differential - 12/30/17 05:25 Blood leukocytes automated count (number/volume) 12.6 10*3/uL 4.3-11.0 Blood erythrocytes automated count (number/volume) 3.38 10*6/uL 4.35-5.85 Venous blood hemoglobin measurement (mass/volume) 10.2 g/dL 11.5-16.0 Blood hematocrit (volume fraction) 31 % 35-52 Automated erythrocyte mean corpuscular volume 91 [ foz_us] 80-99 Automated erythrocyte mean corpuscular h emoglobin (mass per erythrocyte) 30 pg 25-34 Automated erythrocyte mean corpuscular h emoglobin concentration measurement (mass/volume) 33 g/dL 32-36 Automated erythrocyte distribution width ratio 15. 3 % 10.0- 14.5 Automated blood platelet count (count/volume) 198 10*3/uL 130-400 Automated blood platelet mean volume measurement 8.8 [foz_us] 7.4-10.4 Automated blood neutrophils/100 leukocytes 72 % 42-75 Automated blood lymphocytes/100 leukocytes 18 % 12-44 Blood monocytes/100 leukocytes 10 % 0-12 Automated blood eosinophils/100 leukocytes 0 % 0-10 Automated blood basophils/100 leukocytes 0 % 0-10 Blood neutrophils automated count (number/volume) 9.1 10*3 1.8-7.8 Blood lymphocytes automated count (number/volume) 2.3 10*3 1.0-4.0 Blood monocytes automated count (number/volume) 1. 2 10*3 0.0-1.0 Automated eosinophil count 0.1 10*3/uL 0 .0-0.3 Automated blood basophil count (count/volume) 0.0 10*3/uL 0.0-0.1 RUBELLA IMMUNE STATUS - 03/30/19 14:52 RUBELLA ANTIBODY (IGG) 0.94 index NRG CULTURE, URINE - 03/30/19 14:52 CULTURE, URINE, ROUTINE SEE NOTE NRG ANTIBODY SCREEN - 05/25/19 13:29 ANTIBODY SCREEN, RBC W/REFL ID, TITER AND AG NO ANTIBODIES DETECTED NRG GLUCOSE TAE 1 HOUR - 08/07/19 17:17 GLUCOSE, POSTPRANDIAL/ 1 HOUR 85 mg/dL See Note: CBC - 08/07/19 17:17 WHITE BLOOD CELL COUNT 7.0 Thousand/uL 3 .8-10.8 RED BLOOD CELL COUNT 3.69 Million/uL 3.8 0-5.10 HEMOGLOBIN 10.7 g/dL 11.7-15.5 HEMATOCRIT 32.4 % 35.0-45.0 MCV 87.8 fL 80.0-100.0 MCH 29.0 pg 27.0-33.0 MCHC 33.0 g/dL 32.0-36.0 RDW 13.1 % 11.0-15.0 PLATELET COUNT 211 Thousand/uL 140-400 MPV 9.4 fL 7.5-12.5 ABSOLUTE NEUTROPHILS 5572 cells/uL 1500- 7800 ABSOLUTE LYMPHOCYTES 917 cells/uL 850-39 00 ABSOLUTE MONOCYTES 406 cells/uL 200-950 ABSOLUTE EOSINOPHILS 98 cells/uL 15-500 ABSOLUTE BASOPHILS 7 cells/uL 0-200 NEUTROPHILS 79.6 % NRG LYMPHOCYTES 13.1 % NRG MONOCYTES 5.8 % NRG EOSINOPHILS 1.4 % NRG BASOPHILS 0.1 % NRG SYPHILIS (RPR W/ REFLEX CONFIRMATION) - 08/07/19 17:17 RPR (DX) W/REFL TITER AND CONFIRMATORY TESTING NON-REACTIVE NON-REACTIVE CULTURE, GROUP B STREP (VAGINAL) - 10/06 19:00 STREPTOCOCCUS, GROUP B CULTURE SEE NOTE NRG Encounters ACCT No. Visit Date/Time Discharge Status Pt. Type Provider Facility Loc./Unit Complaint [id number] 11/05/2014 12:50:00 11/05/2014 23:59: 59 CLS Outpatient LAXMI LOZANO MD [id number] 10/27/2014 14:59:00 10/27/2014 23:59: 59 CLS Outpatient LAXMI LOZANO MD [id number] 09/29/2014 15:40:00 09/29/2014 23:59: 59 CLS Outpatient LAXMI LOZANO MD [id number] 09/01/2014 16:11:00 09/01/2014 23:59: 59 CLS Outpatient LAXMI LOZANO MD [id number] 08/02/2014 17:30:00 08/02/2014 23:59: 59 CLS Outpatient PATRICIA MABRY APRN [id number] 07/05/2014 17:26:00 07/05/2014 23:59: 59 CLS Outpatient PATRICIA MABRY APRN [id number] 06/14/2014 18:34:00 06/14/2014 23:59: 59 CLS Outpatient HUA CRUZ DO [id number] 01/12/2014 17:24:00 01/12/2014 23:59: 59 CLS Outpatient PATRICIA MABRY APRN [id number] 07/08/2013 16:19:00 07/08/2013 23:59: 59 CLS Outpatient SKIP MUSTAFA APRN [id number] 04/03/2016 18:05:00 Document Registration [id number] 12/29/2017 18:21:00 018 14:25:00 DIS Inpatient TIMOTHY MENDOZA MD [facility] LDRP UTERINE CONTRACTIONS [id number] 12/27/2017 13:54:00 018 23:59:59 CLS Outpatient LAXMI LOZANO MD [facility] RAD ANTEPARTUM MALPRESENTAT ION OF FETUS [id number] 10/18/2017 13:59:00 018 23:59:59 CLS Outpatient LAXMI LOZANO MD [facility] RAD Z04.8 EVALUATE ANATOMY NOT SEEN ON PRIOR SONO [id number] 09/06/2017 14:03:00 018 23:59:59 CLS Outpatient LAXMI LOZANO MD [facility] RAD Z34.82 CARE [id number] 06/19/2017 10:49:00 017 23:59:59 CLS Outpatient LAXMI LOZANO MD [facility] RAD Z34.80 NORMAL IN MULTIGRAVIDA [id number] 02/03/2015 08:32:00 015 16:00:00 DIS Inpatient LAXMI LOZANO MD [facility] LDRP LABOR [id number] 07/09/2014 13:44:00 014 23:59:59 CLS Outpatient PATRICIA MABRY APRN [facility] RAD [id number] 11/03/2019 06:00:00 P EN Preadmit LAXMI LOZANO MD INDUCTION [id number] 09/29/2014 14:45:00 Document Registration [id number] 09/15/2014 14:05:00 Document Registration [id number] 02/24/2012 22:05:00 Document Registration [id number] 02/10/2012 23:44:00 Document Registration [id number] 10/15/2019 11:00:00 10/15/2019 23:59:5 9 CLS Outpatient SARA RIVERA [facility] [id number] 10/07/2019 12:40:00 Document Registration [id number] 08/07/2019 16:20:00 Document Registration [id number] 05/25/2019 12:40:00 Document Registration [id number] 03/30/2019 13:00:00 Document Registration [id number] 12/20/2017 13:20:00 Document Registration [id number] 10/04/2017 14:20:00 Document Registration [id number] 07/26/2017 14:20:00 Document Registration [id number] 06/18/2017 13:40:00 Document Registration
--- NOTE | 2019-11-03 06:08 | NUR ---
NAZ DEWITT presented to unit via ambulatory from ED, accompanied by s/o, with c/o INDUCTION. NAZ DEWITT weighed, gowned, voided, and to bed. EFHM and TOCO applied, VS taken. NAZ DEWITT oriented to bed controls, call light, TV, heat, and A/C controls.
[2019-11-03] MEDS ORDERED: D5 LR IV SOLUTION 1,000 ML IV ONE (07:19)
[2019-11-03] MEDS ORDERED: MINERAL OIL CONCENTRATE 99.9% 15 ML UDC TOP PRN (07:30)
[2019-11-03] MEDS: D5 LR IV SOLUTION 1,000 ML IV SCH ×2 (07:40→14:50)
[2019-11-03] MEDS ORDERED: MISOPROSTOL 100 MCG (CYTOTEC) TAB ONE (07:52)
[2019-11-03] MEDS ORDERED: MISOPROSTOL 100 MCG (CYTOTEC) TAB PV SCH (08:00)
--- NOTE | 2019-11-03 08:00 | NUR ---
SEE LABOR FLOW RECORD.
[2019-11-03] MEDS ORDERED: AMPICILLIN FOR IV USE 2,000 MG VIAL ONE (08:03)
[2019-11-03] MEDS ORDERED: WATER (STERILE) FOR INJECTION 20 ML ONE (08:04)
[2019-11-03 08:15] LABS: BASOPHILS % (AUTO) 0 % (0-10); EOSINOPHILS # (AUTO) 0.1 10^3/uL (0.0-0.3); EOSINOPHILS % (AUTO) 1 % (0-10); HEMATOCRIT 30 % (35-52); LYMPHOCYTES # (AUTO) 1.4 X 10^3 (1.0-4.0); LYMPHOCYTES % (AUTO) 20 % (12-44); MEAN CORPUSCULAR HEMOGLOBIN 30 PG (25-34); MEAN CORPUSCULAR HGB CONC 33 G/DL (32-36); MEAN CORPUSCULAR VOLUME 90 FL (80-99); MONOCYTES # (AUTO) 0.5 X 10^3 (0.0-1.0); MONOCYTES % (AUTO) 7 % (0-12); NEUTROPHILS % (AUTO) 72 % (42-75); PLATELET COUNT 188 10^3/uL (130-400); WHITE BLOOD COUNT 6.9 10^3/uL (4.3-11.0)
[2019-11-03] MEDS ORDERED: FERR325T18 PO (11:50)
[2019-11-03] MEDS: AMPICILLIN FOR IV USE 1,000 MG in WATER (STERILE) FOR INJECTION 7.4 ML IV SCH ×2 (12:19→16:10)
[2019-11-03] MEDS ORDERED: AMPICILLIN FOR IV USE 2,000 MG in WATER (STERILE) FOR INJECTION 14.8 ML IV SCH (12:21)
[2019-11-03] MEDS ORDERED: CATHETER FLUSH 10 ML SYR IV SCH (14:00)
[2019-11-03] MEDS ORDERED: LIDOCAINE/EPI 2% 1:200,00 (XYLOCAINE) 10 ML VIAL ONE (15:25)
[2019-11-03] MEDS ORDERED: OXYTOCIN PRE-MIX DRIP 500 ML IV ONE (15:32)
[2019-11-03] MEDS ORDERED: IBUPROFEN 600 MG (MOTRIN) TAB PO ONE (20:28)
--- NOTE | 2019-11-03 20:33 | OB Labor & Delivery Record ---
Vag Delivery Note Vag Delivery Note Date of Delivery: 11/03/19 Preoperative Diagnosis: Ciara Fisher is a 29 /Para 3/2 ,Gestational Age (wks)40with 2 days Postoperative Diagnosis: Same Surgeon: LAXMI LOZANO Form Drafter: None Anesthesia: None Delivery Type: Spontaneous vaginal delivery Findings: Viable female , apgars 9/9, weight pending Lacerations: second degree laceration Intact placenta with 3 vessel cord. No nuchal cord, body cord or shoulder dystocia Estimated Blood Loss: 350 ml Complications: None Condition: Stable Description of Procedure: The patient is a 29 year old female who presented for induction of labor for postdates. She was admitted and informed consent was obtained. Her labor course was unremarkable. She progressed to complete dilatation and began to push. She was then set up for delivery. The infant's head was delivered atraumatically in the OA position. The shoulders and remainder of the infant's body were then delivered without difficulty. Upon delivery, the infant was vigorous and placed on maternal abdomen. After a delay the cord was doubly clamped and cut and the remained skin to skin with mother. An intact placenta with 3-vessel cord delivered via Kennedy and there was found to be minimal bleeding.~ Vigorous fundal massage was performed and the fundus was found to be firm. IV oxytocin was given. Examination of the vagina and perineum revealed a second degree perineal laceration repaired in the usual fashion with 3-0 vicryl rapide suture. Following the repair, sponge, instrument and needle counts were correct. Mom and baby were both in stable condition in the labor suite. Vitals - Labs Vital Signs - I&O Vital Signs Date Time Temp Pulse Resp B/P (MAP) Pulse Ox O2 Delivery O2 Flow Rate FiO2 11/03/19 19:02 90 18 112/76 (88) Room Air 11/03/19 18:47 80 18 114/71 (85) Room Air 11/03/19 18:30 89 18 109/57 (74) Room Air 11/03/19 18:17 36.5 96 18 124/62 (82) Room Air 11/03/19 18:02 92 18 115/68 (84) Room Air 11/03/19 17:46 98 18 99/61 (74) Room Air 11/03/19 17:33 86 18 105/68 (80) Room Air 11/03/19 17:18 96 18 109/64 (79) Room Air 11/03/19 17:00 94 18 106/61 (76) Room Air 11/03/19 16:45 86 18 103/56 (72) Room Air 11/03/19 16:30 37.0 83 18 106/66 (79) Room Air 11/03/19 15:10 94 18 103/63 (76) Room Air 11/03/19 13:47 36.6 94 18 111/61 (78) Room Air 11/03/19 12:55 86 18 115/65 (82) Room Air 11/03/19 12:41 37.0 94 18 112/71 (85) Room Air 11/03/19 12:07 100 18 101/79 (86) Room Air 11/03/19 10:55 91 18 97/55 (69) Room Air 11/03/19 09:55 36.5 85 18 102/64 (77) Room Air 11/03/19 08:57 96 18 109/68 (82) Room Air 11/03/19 08:22 92 18 107/67 (80) Room Air 11/03/19 08:00 37.0 107 18 97 Room Air 11/03/19 07:19 37.0 107 18 110/63 (79) 97 Room Air Labs Laboratory Tests 11/03/19 07:40: White Blood Count 6.9, Red Blood Count 3.38L, Hemoglobin 10.0L, Hematocrit 30L, Mean Corpuscular Volume 90, Mean Corpuscular Hemoglobin 30, Mean Corpuscular Hemoglobin Concent 33, Red Cell Distribution Width 15.0H, Platelet Count 188, Mean Platelet Volume 9.0, Neutrophils (%) (Auto) 72, Lymphocytes (%) (Auto) 20, Monocytes (%) (Auto) 7, Eosinophils (%) (Auto) 1, Basophils (%) (Auto) 0, Neutrophils # (Auto) 5.0, Lymphocytes # (Auto) 1.4, Monocytes # (Auto) 0.5, Eosinophils # (Auto) 0.1, Basophils # (Auto) 0.0 LAXMI LOZANO MD Nov 03, 2019 20:33
--- NOTE | 2019-11-03 20:38 | History & Physical-OB ---
OB - Chief Complaint & HPI Date/Time Date of Admission: Date of Admission: Nov 03, 2019 at 05:55 Date seen by a Provider: Nov 03, 2019 Time Seen by a Provider: 07:40 Chief Complaint/History OB-Reason for Admission/Chief: Induction of Labor Hx : 3 Hx Para: 2 Expected Date of Delivery: Nov 01, 2019 Gestational Age in Weeks: 40 Gestational Age in Days: 2 Indication for induction: post dates History of Labs A+, antibody neg, RNI. HIV/HepB/RPR NR. GC/chlamydia neg. 1 hour glucola normal. GBS pos. Allergies and Home Medications Allergies Coded Allergies: No Known Drug Allergies (Unverified , 02/10/12) Home Medications Ferrous Sulfate 325 Mg Tablet, 325 MG PO DAILY, (Reported) Vit/Fe Fumarate/Fa 1 Each Tablet, 1 EACH PO DAILY, (Reported) Patient Home Medication List Home Medication List Reviewed: Yes OB - History Hx of Present Care: Yes Ultrasounds: Normal mid trimester US Obstetrical Complications: None Medical Complications: None Information Induced Hypertension: No Maternal Gestational Diabetes: No Hemorrhage: No Obstetrical History Hx : 3 Hx Para: 2 Hx # Term Pregnancies: 2 Hx # Pregnancies: 0 Number of Living Children: 2 Hx Termination: No Hx Multiple Gestation: No Hx Ectopic : No Hx Stillbirth: No Hx Complication: No Hx Induced Hypertens: No Hx Maternal Gestational Diabet: No Hx Hemorrhage: No Delivery History Hx Dystocia: No Hx Forceps Assisted Delivery: No Hx Vacuum Extraction Assisted: No Hx Placenta Abnormality: No Hx Distress: No Hx Large For Gestational Age I: No Hx Small for Gestational Age I: No Hx Section: No Hx Vaginal Delivery Post C-Sec: No Hx Blood Disorders: No Adverse Rxn to Tranfusion: No Patient Past Medical History Seasonal allergies Social History/Family History HIV/AIDS: No Recent Infectious Disease Expo: No Alcohol Use: Denies Use Recreational Drug Use: No Smoking Cessation: Never smoker Immunizations Hepatitis A: Yes Hepatitis B: Yes Tetanus Booster (TDap): Less than 5yrs Rubella: not immune RPR/VDRL: Negative GBS Status: Negative HBsAG: Negative OB - Admission Exam Physical Exam Vitals: Vital Signs 11/03/19 11/03/19 11/03/19 08:00 18:17 19:02 Temp 36.5 Pulse 90 Resp 18 B/P (MAP) 112/76 (88) Pulse Ox 97 O2 Delivery Room Air HEENT: NCAT Abdomen: Non tender Extremities: Normal Cervical Dilatation: 1cm Effacement: 0% Station: -3 Membranes: Intact Contractions on Admission: None Dobbs Scoring Tool (Modified) Dilation (cm): 1-2cm (1) Effacement (%): 0-30% (0) Descent/Station: -3 (0) Cervix Consistency: Soft (2) Cervix Position: Posterior (0) Add 1 point for: Each previous vaginal delivery (1) (2) Dobbs Score: 3 Labs Laboratory Tests Test 11/03/19 07:40 Range/Units White Blood Count 6.9 4.3-11.0 10^3/uL Red Blood Count 3.38 L 4.35-5.85 10^6/uL Hemoglobin 10.0 L 11.5-16.0 G/DL Hematocrit 30 L 35-52 % Mean Corpuscular Volume 90 80-99 FL Mean Corpuscular Hemoglobin 30 25-34 PG Mean Corpuscular Hemoglobin Concent 33 32-36 G/DL Red Cell Distribution Width 15.0 H 10.0-14.5 % Platelet Count 188 130-400 10^3/uL Mean Platelet Volume 9.0 7.4-10.4 FL Neutrophils (%) (Auto) 72 42-75 % Lymphocytes (%) (Auto) 20 12-44 % Monocytes (%) (Auto) 7 0-12 % Eosinophils (%) (Auto) 1 0-10 % Basophils (%) (Auto) 0 0-10 % Neutrophils # (Auto) 5.0 1.8-7.8 X 10^3 Lymphocytes # (Auto) 1.4 1.0-4.0 X 10^3 Monocytes # (Auto) 0.5 0.0-1.0 X 10^3 Eosinophils # (Auto) 0.1 0.0-0.3 10^3/uL Basophils # (Auto) 0.0 0.0-0.1 10^3/uL OB - Assessment/Plan/Diagnosis Assessment Assessment: group B positive strep, induction of labor Admission Dx Full term at 40 weeks gestation Induction of labor for approaching post dates GBS positive Rubella non-immune Admission Status: Inpatient Order (span 2 midnights) Reason for Inpatient Admission: Labor, delivery and course Plan Plan: Induction Induction Method: per Misoprostol Protocol Other Plan Pt had hoped to have AROM alone, wants to avoid meds if possible, however AROM not feasible at admission due to markedly posterior cervix and intolerance of cervical exam. Discussed options and agreed to try a dose of misoprostol, anticipate AROM after that. ALXMI LOZANO MD Nov 03, 2019 20:38
[2019-11-03] MEDS ORDERED: MEASLES,MUMPS,RUBELLA 1 EA INJ SQ ONE (21:00)
[2019-11-03] MEDS ORDERED: BENZOCAINE/MENTHOL (DERMOPLAST) 60 ML CAN TP PRN (21:00)
[2019-11-03] MEDS ORDERED: OXYTOCIN PRE-MIX DRIP 500 ML IV SCH (21:00)
[2019-11-03] MEDS ORDERED: TETANUS,DIPTH,PERTUSS P/F (BOOSTRIX) 0.5 ML VIAL IM ONE (21:00)
[2019-11-03] MEDS: IBUPROFEN 600 MG (MOTRIN) TAB PO SCH (21:14)
[2019-11-03] MEDS ORDERED: WITCH HAZEL(TUCKS) 40 EA JAR ONE (23:27)
--- NOTE | 2019-11-03 23:30 | NUR ---
VS done. Pt states feeling fine. States that got up to br and was able to void. States that while up to br, felt a little dizzy, but not too bad. Denies other symptoms. Color pink. ff u/0, minimal rubra. Will monitor.
[2019-11-04] MEDS ORDERED: LIDOCAINE 2% 20 ML (XYLOCAINE) VIAL INJ ONE (00:15)
[2019-11-04] MEDS ORDERED: WITCH HAZEL(TUCKS) 40 EA JAR TOP PRN (00:15)
--- NOTE | 2019-11-04 02:40 | NUR ---
Pt sitting up in bed. in crib. Pt states has been up and able to void. ff u/0. Minimal rubra noted. Pt states was dizzy when up to br again. so in the room with pt. Color pink. Will monitor closely.
[2019-11-04] MEDS: IBUPROFEN 600 MG (MOTRIN) TAB PO SCH ×4 (03:30→20:44)
[2019-11-04 05:31] LABS: BASOPHILS % (AUTO) 0 % (0-10); EOSINOPHILS % (AUTO) 0 % (0-10); HEMATOCRIT 24 % (35-52); HEMOGLOBIN 7.8 G/DL (11.5-16.0); LYMPHOCYTES # (AUTO) 1.6 X 10^3 (1.0-4.0); LYMPHOCYTES % (AUTO) 15 % (12-44); MEAN CORPUSCULAR HEMOGLOBIN 29 PG (25-34); MEAN CORPUSCULAR HGB CONC 32 G/DL (32-36); MEAN CORPUSCULAR VOLUME 90 FL (80-99); MEAN PLATELET VOLUME 8.9 FL (7.4-10.4); MONOCYTES # (AUTO) 0.7 X 10^3 (0.0-1.0); MONOCYTES % (AUTO) 7 % (0-12); NEUTROPHILS # (AUTO) 8.6 X 10^3 (1.8-7.8); NEUTROPHILS % (AUTO) 78 % (42-75); PLATELET COUNT 195 10^3/uL (130-400); RED CELL DISTRIBUTION WIDTH 15.2 % (10.0-14.5); WHITE BLOOD COUNT 10.9 10^3/uL (4.3-11.0)
[2019-11-04 07:51] VITALS: BP 107/62
[2019-11-04] MEDS: PRENATAL VITAMIN 1 EA TAB PO SCH (08:29)
[2019-11-04] MEDS: DOCUSATE SODIUM 100 MG (COLACE) CAP PO SCH ×3 (08:30→20:44)
--- NOTE | 2019-11-04 10:23 | Postpartum Progress Note ---
Note Note Day # 1 Subjective: Patient is without complaints. Ambulating, voiding. Tolerating a regular diet without nausea or vomiting. Normal lochia. Pain is well controlled with oral pain medications. Breast feeding. Objective: Physical Exam: General - Alert and oriented, no apparent distress Abdomen - Soft, appropriately tender to palpation, non-distended, fundus firm at umbilicus Extremities - no edema, negative Valente's bilaterally Assessment: 29 yo G3 now P3 post- day # 1, status post spontaneous vaginal delivery. Recovering well, hemodynamically stable Plan: Routine care. Encourage breast feeding, consult placed Encourage ambulation. Ferrous sulfate supplementation. Plan for discharge today or tomorrow based on , f.u [address] Caballero Vitals - Labs Vital Signs - I&O Vital Signs Date Time Temp Pulse Resp B/P (MAP) Pulse Ox O2 Delivery O2 Flow Rate FiO2 11/04/19 07:51 36.6 95 16 107/62 (77) 98 Room Air 11/03/19 23:30 36.7 106 16 93/54 (67) 97 Room Air 11/03/19 22:03 127 18 92/53 (66) Room Air 11/03/19 21:52 129 18 94/54 (67) Room Air 11/03/19 21:51 37.1 126 18 96/55 (69) Room Air 11/03/19 21:22 37.2 115 20 117/49 (71) Room Air 11/03/19 20:15 36.7 103 20 103/57 (72) Room Air 11/03/19 20:02 116 20 113/55 (74) Room Air 11/03/19 19:45 35.9 108 20 127/59 (81) Room Air 11/03/19 19:30 88 18 106/71 (83) Room Air 11/03/19 19:15 85 18 111/78 (89) Room Air 11/03/19 19:02 90 18 112/76 (88) Room Air 11/03/19 18:47 80 18 114/71 (85) Room Air 11/03/19 18:30 89 18 109/57 (74) Room Air 11/03/19 18:17 36.5 96 18 124/62 (82) Room Air 11/03/19 18:02 92 18 115/68 (84) Room Air 11/03/19 17:46 98 18 99/61 (74) Room Air 11/03/19 17:33 86 18 105/68 (80) Room Air 11/03/19 17:18 96 18 109/64 (79) Room Air 11/03/19 17:00 94 18 106/61 (76) Room Air 11/03/19 16:45 86 18 103/56 (72) Room Air 11/03/19 16:30 37.0 83 18 106/66 (79) Room Air 11/03/19 15:10 94 18 103/63 (76) Room Air 11/03/19 13:47 36.6 94 18 111/61 (78) Room Air 11/03/19 12:55 86 18 115/65 (82) Room Air 11/03/19 12:41 37.0 94 18 112/71 (85) Room Air 11/03/19 12:07 100 18 101/79 (86) Room Air 11/03/19 10:55 91 18 97/55 (69) Room Air I & O 11/04/19 07:00 Intake Total 2429.6 ml Balance 2429.6 ml Labs Laboratory Tests 11/04/19 04:36: White Blood Count 10.9, Red Blood Count 2.71L, Hemoglobin 7.8#L, Hematocrit 24L, Mean Corpuscular Volume 90, Mean Corpuscular Hemoglobin 29, Mean Corpuscular Hemoglobin Concent 32, Red Cell Distribution Width 15.2H, Platelet Count 195, Mean Platelet Volume 8.9, Neutrophils (%) (Auto) 78H, Lymphocytes (%) (Auto) 15, Monocytes (%) (Auto) 7, Eosinophils (%) (Auto) 0, Basophils (%) (Auto) 0, Neutrophils # (Auto) 8.6H, Lymphocytes # (Auto) 1.6, Monocytes # (Auto) 0.7, Eosinophils # (Auto) 0.0, Basophils # (Auto) 0.0 CHEMA HICKMAN MD Nov 04, 2019 10:23
[2019-11-04] MEDS ORDERED: IBUP-844 PO (10:25)
--- NOTE | 2019-11-04 10:26 | Discharge Summary ---
Discharge Inst-[facility] Reconcile Patient Problems Problems Reviewed?: Yes Depart Medications New, Converted or Re-Newed RX: Transmitted to Pharmacy New Medications: Ibuprofen (Ibu) 600 Mg Tablet 600 MG PO Q6HR, #90 TAB Continued Medications: Ferrous Sulfate (Ferrous Sulfate) 325 Mg Tablet 325 MG PO DAILY, TAB Vit/Fe Fumarate/Fa ( Vitamin Tablet) 1 Each Tablet 1 EACH PO DAILY, TAB Follow Up/Instructions Goal/Follow Up: 6 week Post visit with Dr Caballero Activity Activity: Activity as Tolerated Driving Instructions: You May Drive NO SMOKING: NO SMOKING Nothing Inside Vagina: No Douching, No [place], No Tampons Diet Discharge Diet: No Restrictions Symptoms to Report to : Bleeding Excessive, Fever Over 101 Degrees F, Shortness of Breath For Any Problems or Questions: Contact Your Physician Copies To 1: LAXMI CABALLERO MD, HOLLY R MD Nov 04, 2019 10:26
[2019-11-04 13:04] VITALS: BP 108/56
[2019-11-04 17:12] VITALS: BP 102/58
[2019-11-04] MEDS ORDERED: SIMETHICONE 80 MG (MYLICON) CHEW PO PRN (18:15)
[2019-11-04] MEDS: CATHETER FLUSH 10 ML SYR IV SCH ×2 (18:23→18:24)
[2019-11-04 20:44] VITALS: BP 106/73
[2019-11-05 02:46] VITALS: BP 95/62
[2019-11-05] MEDS: IBUPROFEN 600 MG (MOTRIN) TAB PO SCH (02:46)
[2019-11-05] MEDS: PRENATAL VITAMIN 1 EA TAB PO SCH (06:44)
[2019-11-05 08:00] VITALS: BP 111/70
[2019-11-05] MEDS: DOCUSATE SODIUM 100 MG (COLACE) CAP PO SCH (08:35)
--- NOTE | 2019-11-05 09:52 | Discharge Summary ---
Diagnosis/Chief Complaint Date of Admission Nov 03, 2019 at 05:55 Date of Discharge 11/05/19 Admission Diagnosis Admission Diagnosis Term 40 week gestation Discharge Diagnosis @ 40 weeks gestation Term Female Discharge Summary-Simple/Stand Procedures Discharge Physical Examination Allergies: Coded Allergies: No Known Drug Allergies (Unverified , 02/10/12) Vitals & I&Os Vital Sign - Last 12Hours Date Time Temp Pulse Resp B/P (MAP) Pulse Ox O2 Delivery O2 Flow Rate FiO2 11/05/19 09:00 99 Room Air 11/05/19 08:00 36.8 101 18 111/70 (84) General Appearance: Alert, Oriented X3, Cooperative, No Acute Distress HEENT: Mucous Memb Moist/[place] Respiratory: Clear to Auscultation, Normal Air Movement Cardiovascular: Regular Rate, No Murmurs Abdominal: Normal Bowel Sounds, Soft, No Tenderness, Other (Fundus at umbilicus) Extremities: Other (trace swelling present) Neuro: Normal Speech, Strength at 5/5 X4 Ext, Sensation Intact Psych/Mental Status: Mental Status NL, Mood NL Hospital Course Was the Problem List Reviewed?: Yes See final discharge diagnosis. Discussion & Recommendations 29 yo G3 now P3 delivered term female infant via @ 40.2 wga. Routine post pa rtum care. Post anemia sent home to continue iron supplementation. Breast feeding well. Discharge Condition at discharge stable Instructions to patient/family Please see electronic discharge instructions given to patient. Discharge Medications Reviewed and agree with Discharge Medication list on patient's Discharge Instruction sheet Clinical Quality Measures DVT/VTE Risk/Contraindication: Risk Factor Score Per Nursin RFS Level Per Nursing on Admit: 1=Low/No VTE PPX Copy Copies To 1: LAXMI LOZANO MD, HOLLY R MD Nov 05, 2019 09:51
== END 2019-11-05 11:22 | disposition home or self-care (01) | DRG 807 ==
LOC: LDRP 05:55
PROVIDERS: ADMIT Family Medicine; ATTEND Family Medicine
PROC: 10E0XZZ Delivery of Products of Conception, External Approach (ICD-10-PCS; principal; 2019-11-03)
PROC: 0KQM0ZZ Repair Perineum Muscle, Open Approach (ICD-10-PCS; 2019-11-03)
PROC: 3E0P7GC Introduction of Other Therapeutic Substance into Female Reproductive, Via Natural or Artificial Opening (ICD-10-PCS; 2019-11-03)
DX: O48.0 Post-term pregnancy (principal); Z37.0 Single live birth; O99.824 Streptococcus B carrier state complicating childbirth; O70.1 Second degree perineal laceration during delivery; O90.81 Anemia of the puerperium; Z3A.40 40 weeks gestation of pregnancy; Z23 Encounter for immunization
CPT/HCPCS: 36415; 85025; 86850; 86900; 86901; 90707; 90715